=== PATIENT | male | born 1965 | race Caucasian/White ===

== ENCOUNTER 2017-02-28 11:20 | Inpatient (IN) ==
[2017-02-28] MEDS ORDERED: Nitroglycerin 0.4 MG TAB.SUBL SL PRN (11:42)
[2017-02-28 11:54] LABS: Basophils % 0.2 %; Eosinophils # 0.1 K/mcL (0.0-0.6); Eosinophils % 0.4 %; Hematocrit 40.2 % (37.5-50.1); Hemoglobin 13.6 g/dL (12.9-16.9); Immature Granulocytes % 0.4 % (0-4); Lymphocytes # 2.3 K/mcL (0.6-4.6); Lymphocytes % 13.3 %; Mean Corpuscular HGB Conc 33.8 g/dL (31.6-35.5); Mean Corpuscular Hemoglobin 28.5 pg (28.0-33.3); Mean Corpuscular Volume 84.1 fL (83.0-100.0); Monocytes # 1.7 K/mcL (0.0-1.3); Neutrophils # 12.9 K/mcL (1.6-8.9); Platelet Count 296 K/mcL (140-400); Red Blood Count 4.78 M/mcL (4.19-5.50); Red Cell Distribution Width 13.1 % (11.5-14.5); Segmented Neutrophils % 75.7 %
[2017-02-28 12:14] LABS: BUN/Creatinine Ratio 18 (6-26); Blood Urea Nitrogen 17 mg/dL (6-20); Calcium 9.1 mg/dL (8.6-10.3); Carbon Dioxide 21 mEq/L (23-29); Chloride 101 mEq/L (98-107); Glucose 112 mg/dL (70-105); Osmolality,Calculated 272 (280-300); Potassium 4.1 mEq/L (3.5-5.1); Sodium 130 mEq/L (136-145); eGFR For African Americans > 60 (> 60); eGFR For Non-African Americans > 60 (> 60)
[2017-02-28] MEDS ORDERED: *HR* Heparin 5,000 UNIT/ML VIAL IVP ONE (12:47)
[2017-02-28] MEDS ORDERED: *HR* Heparin 5,000 UNIT/ML VIAL IVP PRN (12:47)
[2017-02-28] MEDS ORDERED: Azithromycin 500 MG in D5% in Water 250 ML IVPB ONE (12:49)
--- NOTE | 2017-02-28 12:49 | Emergency Department Note ---
Disposition Clinical Impression: NSTEMI (non-ST elevated myocardial infarction) CAP (community acquired pneumonia) Qualifiers: Laterality: right Lung location: lower lobe of lung Qualified Code(s): J18.1 - Lobar pneumonia, unspecified organism Disposition: Admitted As Inpatient Condition: Serious Referrals: Salbador Madrid DO [Primary Care Provider] - Forms: ED Satisfaction Letter Time of Disposition: 13:57 Chest Pain HPI - General Chief Complaint: ED Chest Pain Stated Complaint: Chest Pain Time Seen by Provider: 02/28/17 11:30 Source: patient Mode of arrival: ambulatory Limitations: no limitations Vital Signs Reviewed: Yes Nursing Notes Reviewed: Yes - History of Present Illness HPI Narrative: 51-year-old male history of hypertension presents complaining of chest pain at rest. Patient has had some cough and congestion for the last 3 or 4 days and right-sided chest pain that he rates a 3 out of 10 at been persistent but this morning he woke up with left-sided acute 6 out of 10 chest pain, he took aspirin , he came in for evaluation. Patient has no history of previous cardiac workups history of hypertension and is a current smoker. He denies hemoptysis, denies reflux, denies nausea, vomiting, abdominal pain GI bleeding and melena Pt complaint: chest pain Onset (ago): hour(s) Duration: intermittent Onset: during rest Pain Location: left chest Severity: moderate Severity scale (1-10): 3 Quality: aching Pain Radiation: none Improves with: nothing Worsens with: exertion Associated symptoms: Reports: dyspnea. Denies: vomiting, diaphoresis, sense of impending doom, leg swelling Treatments prior to arrival chest pain: aspirin - Related Data Home Medications Medication Instructions Recorded Confirmed Albuterol Sulfate [Albuterol 2 puff IH Q6H PRN 02/28/17 02/28/17 Inhaler] Lisinopril [Zestril] 10 mg PO DAILY 02/28/17 02/28/17 Naproxen [Naproxen] 500 mg PO BID PRN 02/28/17 02/28/17 Allergies Allergy/AdvReac Type Severity Reaction Status Date / Time Penicillins [PCN] AdvReac See Verified 02/28/17 11:23 Comments All systems ED: reviewed and negative except as stated. Review of Systems: As Per HPI Constitutional: Denies: fever Eyes: Denies: eye pain ENT ED: Denies: ear pain Cardiovascular: Reports: as per HPI, chest pain, dyspnea on exertion. Denies: palpitations Respiratory: Reports: as per HPI, cough, dyspnea Gastrointestinal: Denies: abdominal pain, nausea, vomiting Genitourinary: Denies: urgency Musculoskeletal: Denies: back pain Chest Pain PMH - Past Medical History Medical history: Reports: arthritis, hypertension Psychiatric history: Reports: no psych history - Social History Smoking Status: Current every day smoker Alcohol use: Reports: none Drug use: Reports: none Physical Exam Constitutional: NAD, vital signs reviewed and wnl Eyes: PERRLA, sclera anicteric ENT & Mouth: MM dry Neck: normal inspection, neck is supple Resp: exp wheezes bilaterally CV: RRR, no m/g/r GI: normal inspection, soft, no guarding or rigidity Neuro: A&O3, CNII-XII grossly intact, GRIFFIN Skin: on limited exam, skin intact with no rashes or lesions - General General appearance: alert, in no apparent distress Course Course Narrative: 51-year-old male with history of chest pain today, a few days of continued chest pain as well associate with cough on the right side of this new chest pain is on the left, his heart score is 4, we will give him nitroglycerin glycerin trial, plan is for likely admission for chest pain given high heart score - Reevaluation(s) Reevaluation #1: Nitroglycerin glycerin was not effective, I did cardiac consult Dr. Cain and she recommended inpatient mission for pneumonia, possible N STEMI given elevated troponin, heparinization was started, patient has no ischemic EKG changes and an EKG was repeated at 1253 so showing no acute ischemic changes. As was Dr. Maldonado accepting Time: 13:56 Vital Signs Temperature 97.3 F L 02/28/17 11:23 Pulse Rate 108 02/28/17 11:23 Respiratory Rate 18 02/28/17 11:23 Blood Pressure 112/73 02/28/17 11:23 O2 Sat by Pulse Oximetry 96 02/28/17 11:23 Temperature 97.3 F L 02/28/17 11:23 Pulse Rate 90 02/28/17 13:26 Respiratory Rate 16 02/28/17 13:26 Blood Pressure 103/66 02/28/17 13:26 O2 Sat by Pulse Oximetry 95 02/28/17 13:26 Oxygen Delivery Oxygen Delivery Room Air Chest Pain - Differential Diagnosis Likely: atypical chest pain. Unlikely: chest pain - Medical Records Medical records reviewed: Yes I reviewed the patient's medical records. - Lab Data Lab results reviewed: Yes I reviewed the patient's lab results. Result diagrams: 02/28/17 11:46 02/28/17 11:46 Lab Results 02/28/17 02/28/17 02/28/17 Range/Units 11:46 11:46 11:46 WBC 17.0 H (4.3-11.1) K/mcL RBC 4.78 (4.19-5.50) M/mcL Hgb 13.6 (12.9-16.9) g/dL Hct 40.2 (37.5-50.1) % MCV 84.1 (83.0-100.0) fL MCH 28.5 (28.0-33.3) pg MCHC 33.8 (31.6-35.5) g/dL RDW 13.1 (11.5-14.5) % Plt Count 296 (140-400) K/mcL MPV 11.0 (9.4-12.4) fL Immature Gran % 0.4 (0-4) % Seg Neutrophils % 75.7 % Lymphocytes % 13.3 % Monocytes % 10.0 % Eosinophils % 0.4 % Basophils % 0.2 % Neutrophils # 12.9 H (1.6-8.9) K/mcL Lymphocytes # 2.3 (0.6-4.6) K/mcL Monocytes # 1.7 H (0.0-1.3) K/mcL Eosinophils # 0.1 (0.0-0.6) K/mcL Basophils # 0.0 (0.0-0.2) K/mcL PT (9.4-12.1) Seconds INR APTT (26.0-36.0) Seconds Sodium 130 L (136-145) mEq/L Potassium 4.1 (3.5-5.1) mEq/L Chloride 101 (98-107) mEq/L Carbon Dioxide 21 L (23-29) mEq/L BUN 17 (6-20) mg/dL Creatinine 0.93 (0.70-1.30) mg/dL Est GFR ( Amer) > 60 (> 60) Est GFR (Non-Af Amer) > 60 (> 60) BUN/Creatinine Ratio 18 (6-26) Glucose 112 H (70-105) mg/dL Calculated Osmolality 272 L (280-300) Calcium 9.1 (8.6-10.3) mg/dL Troponin I 0.05 H* (< 0.04) ng/mL 02/28/17 Range/Units 11:46 WBC (4.3-11.1) K/mcL RBC (4.19-5.50) M/mcL Hgb (12.9-16.9) g/dL Hct (37.5-50.1) % MCV (83.0-100.0) fL MCH (28.0-33.3) pg MCHC (31.6-35.5) g/dL RDW (11.5-14.5) % Plt Count (140-400) K/mcL MPV (9.4-12.4) fL Immature Gran % (0-4) % Seg Neutrophils % % Lymphocytes % % Monocytes % % Eosinophils % % Basophils % % Neutrophils # (1.6-8.9) K/mcL Lymphocytes # (0.6-4.6) K/mcL Monocytes # (0.0-1.3) K/mcL Eosinophils # (0.0-0.6) K/mcL Basophils # (0.0-0.2) K/mcL PT 14.3 H (9.4-12.1) Seconds INR 1.3 APTT 27.0 (26.0-36.0) Seconds Sodium (136-145) mEq/L Potassium (3.5-5.1) mEq/L Chloride (98-107) mEq/L Carbon Dioxide (23-29) mEq/L BUN (6-20) mg/dL Creatinine (0.70-1.30) mg/dL Est GFR ( Amer) (> 60) Est GFR (Non-Af Amer) (> 60) BUN/Creatinine Ratio (6-26) Glucose (70-105) mg/dL Calculated Osmolality (280-300) Calcium (8.6-10.3) mg/dL Troponin I (< 0.04) ng/mL - Radiology Data Radiology results reviewed: Yes I reviewed the patient's radiology results. Chest X-Ray 02/28/17 11:30 IMPRESSION: 1. Focal consolidation at the right lung base. 2. Mildly enlarged cardiac silhouette with minimal prominence of the pulmonary vasculature. D/ / Don Villegas MD / Don Villegas MD Interpreting Provider: Don Villegas MD - EKG Data EKG attestation: Yes I reviewed and interpreted this EKG. EKG shows normal: sinus rhythm (91 bpm WA 155 QRS 116 QTc [address] segment elevations or depressions incomplete right bundle branch block and inferior leads.) When compared to previous EKG there are: previous EKG unavailable Interpretation: no acute changes - Core Measures AMI Core Measures Followed: Yes Heart Score - Score History: Moderately Suspicious EKG: Non Specific repolarisation Disturbance Age: 45-65 Risk Factors: 1-2 risk factors Troponin: Less than normal limit HEART Score Total: 4 Attestation Statement - Attestation Attestation: I examined this patient and my medical decision-making was reviewed with the Resident Physician, Dr. Jones. I agree with the documented findings, disposition and treatment plan as described except to the extent set forth below. Patient is a 51-year-old white male with a history of hypertension and smoking who presents to the emergency Department today with complaints of intermittent left-sided nonradiating chest pain that he has been experiencing since he woke up this morning at 7 AM. Patient states for the last 3 or 4 days he is "not been feeling well", stating that he has had nasal congestion and an occasional nonproductive cough and has experienced some right lower lateral chest wall discomfort with coughing. Patient denies any lightheadedness or syncope, no diaphoresis, no shortness of breath associated with this pain this morning. Patient has no prior cardiac history states remotely he had a stress test performed which was normal and otherwise has never seen a beater out. I agree with patient's physical exam findings as documented. Patient had an EKG done on arrival which was normal sinus rhythm with no acute ST or T-wave changes appreciated. Patient took 2 adult aspirin at home prior to arrival to the emergency department. He was placed on senior medical writer and continuous pulse ox IV was established labs were drawn and sent and he was started on 0.9 normal saline and administered a nitroglycerin trial. The pain was significantly improved but did not totally resolve with nitroglycerin. His labs show an elevated white count with a left shift, as well as an elevated troponin of 0.05. Patient's renal function is within normal limits. Serial EKGs were obtained on the emergency department he has had no acute ST or T-wave changes. Chest x-ray shows a right lower lobe pneumonia. We will go ahead and start the patient on IV antibiotics for community-acquired pneumonia, he has had no respiratory distress or hypoxia since arriving to the ED. Patient's vital signs are stable and he has had a stable blood pressure. With patient's elevated troponin and new onset left sided chest pain this morning patient likely with non-STEMI. We did call cardiology in regards to the patient's ongoing chest pain as well as positive troponin with no EKG changes. Cardiology recommended admission, pain control, he will consult see the patient and follow serial troponins. Patient was started on heparin cardiac protocol. Case discussed with hospitalist who accepted patient for admission.
[2017-02-28] MEDS ORDERED: cefTRIAXone 1,000 MG in Water for inj. (sterile) 10 ML IVP ONE (12:56)
[2017-02-28] MEDS: Heparin 25,000 UNIT/500 ML D5W 25,000 UNIT/500 ML BAG IVC SCH (13:09)
[2017-02-28] MEDS ORDERED: Nitroglycerin 1 INCH/GM PACKET TP ONE (13:15)
[2017-02-28 13:21] LABS: INR 1.3; Prothrombin Time 14.3 Seconds (9.4-12.1)
[2017-02-28] MEDS ORDERED: Naloxone 0.4 MG/ML INJ IVP PRN (16:28)
[2017-02-28] MEDS ORDERED: Acetaminophen 325 MG TABLET PO PRN (16:28)
[2017-02-28] MEDS ORDERED: Ondansetron 4 MG/2 ML VIAL IVP PRN (16:28)
[2017-02-28] MEDS ORDERED: Benzonatate 100 MG CAPSULE PO PRN (16:38)
[2017-02-28] MEDS: Aspirin Enteric Coated 81 MG Tablet PO SCH (17:27)
[2017-02-28] MEDS: Azithromycin 500 MG in D5% in Water 250 ML IVPB SCH (17:28)
[2017-02-28] MEDS: *HR* Morphine 2 MG/ML SYRINGE IVP PRN (17:44)
--- NOTE | 2017-02-28 17:56 | Internal Med History&Physical ---
<Isaak Sharma - Last Filed: 02/28/17 18:22> Date of Encounter: 02/28/17 Time of Encounter: 16:00 Assessment and Plan (1) Chest pain Current visit: Yes Status: Acute Acute chest pain that began at 7:30 AM this morning as sharp and stabbing pain in the left sided chest and was intermittent. Patient denies previous occurrence and any previous cardiac history. Took aspirin prior to coming to ED and patient reports he was given nitroglycerin ED which did not help. Continue aspirin therapy. Lipitor 80 mg now. Echocardiogram ordered. Cardiology consult ordered in ED. continue patient's lisinopril. Continuous cardiac telemetry. Supplemental O2 and SPO2 monitoring. Nitroglycerin when necessary. Heparin drip initiated in the ED and will be continued due to patient's current elevated troponin. Initial troponin 0.05 with second troponin 0.06. Patient discussed with Dr. Maldonado who agrees w/plan of care. Patient is at high risk for cardiac event based on current symptoms and elevated troponin as well as respiratory distress and further morbidity due to concurrent pneumonia diagnosis. Inpatient. Qualifiers: Chest pain type: other chest pain Qualified Code(s): R07.89 - Other chest pain; R07.8 - Other chest pain (2) Sepsis Current visit: Yes Status: Acute Pt. currently meets sepsis criteria based on HR of 108 bpm, WBC of 17.0, and pneumonia of right lower lung. Lactic acid ordered stat. IV 0.9 NS 1L bolus to be followed by 125 mL/HR. Blood cultures x2. Sputum culture ordered. Legionella and strep pneumoniae antigens ordered. IVPB azithromycin 500 mg daily and ceftriaxone 1000 mg daily for infection coverage will adjust antibiotic coverage based on culture results. Continuous cardiac telemetry. Supplemental O2 w/titration and SpO2 monitoring. Monitor pt. and f/u labs. Qualifiers: Sepsis type: sepsis due to unspecified organism Qualified Code(s): A41.9 - Sepsis, unspecified organism (3) CAP (community acquired pneumonia) Current visit: Yes Status: Acute Acute community acquired pneumonia. WBC 17.0. 1-View CXR today shows focal consolidation at the right lung base and mildly enlarged cardiac silhouette with minimal prominence of pulmonary vasculature. IVPB azithromycin 500 mg daily and ceftriaxone 1000 mg daily for infection coverage. Blood cultures 2. Sputum culture ordered. Legionella and strep pneumoniae antigens ordered. Will adjust abx coverage based on culture results. Supplemental O2 with titration SPO2 monitoring. DuoNeb every 4 hours scheduled. Tessalon 200 mg 3 times a day for cough. Monitor pt. and f/u labs. Qualifiers: Laterality: right Lung location: lower lobe of lung Qualified Code(s): J18.1 - Lobar pneumonia, unspecified organism (4) Hyponatremia Current visit: Yes Status: Acute Acute hyponatremia w/sodium level of 130 on admission. Pt. receiving IV 0.9 NS @ 75 mL/HR. Monitor f/u labs. (5) Arthritis Current visit: Yes Status: Chronic Hx of chronic arthritis. Stair-step pain medications for pain mgmt. (6) HTN (hypertension) Current visit: Yes Status: Chronic Hx of chronic HTN. Monitor pt. and VS. Continue pts. lisinopril. Qualifiers: Hypertension type: essential hypertension Qualified Code(s): I10 - Essential (primary) hypertension (7) Tobacco abuse Current visit: Yes Status: Chronic Hx of chronic tobacco abuse. Pt. reports smoking 1 PPD. 14 mg nicotine patch ordered. (8) DVT prophylaxis Current visit: Yes Status: Acute Pt. placed on heparin drip d/t current troponin of 0.05. Monitor pt. for signs of bleeding. Internal Medicine - H&P: HPI Chief complaint: Chest pain Admitted From: Emergency Dept Plans for Post Hospital Care: Home History of present illness: Mr. Bowen is a 51 year old male with medical hx of arthritis, HTN, and current tobacco abuse presents from the ED with chief complaint of chest pain that he states began 7:30 AM and presented as sharp and stabbing pain in his left chest that was intermittent without radiation. Patient also reports he has had a severe cough since before with yellow sputum production. Patient states he took an aspirin this morning before coming to ED. Patient states he was given nitroglycerin in the ED which did not help his chest pain. Patient denies any cardiac history or previous workup. He reports chest pain, shortness of breath, and cough but denies nausea, vomiting, fever, chills, changes in vision, headache, abdominal pain, palpitations, diaphoresis, unusual bleeding, dizziness, lightheadedness, pre-syncope, or syncope. Past Med Surg Social Fam HX - Past Medical History Source: patient, old records reviewed, obtained from family Medical history: arthritis, hypertension Psychiatric history: no psych history - Past Surgical History Surgical History: other - Social History Smoking Status: Current every day smoker Packs per day: 1 PPD Smokeless Tobacco Status: No Alcohol use: none Drug use: none Current living situation: Home, With Family Activity Level: Independent ambulation Recent Out of Country Travel Within the Last 8 Weeks: No Exposure or Possible Exposure to Illness During Travel: No - Family History Mother Race: Family Member Ethnicity: Non- Living Status: Age at : 65 Cause of : Alzheimer's disease Hx Family Neurologic Disorders: Yes (Alzheimer's disease) Father Race: Family Member Ethnicity: Non- Living Status: Still Living Hx Family Medical Disorders: No Brother Race: Family Member Ethnicity: Non- Living Status: Still Living Hx Family Cardiac Disorders: Yes ([place], Cardiac ablation x2, HTN, HLD) Hx Family Endocrine Disorder: Yes (DM) Sister Race: Family Member Ethnicity: Non- Living Status: Still Living Hx Family Medical Disorders: No Internal Medicine - H&P: Meds Albuterol Sulfate [Albuterol Inhaler] 2 puff IH Q6H PRN 02/28/17 [History] Lisinopril [Zestril] 10 mg PO DAILY 02/28/17 [History] Naproxen [Naproxen] 500 mg PO BID PRN 02/28/17 [History] 3 Allergy/AdvReac Type Severity Reaction Status Date / Time Penicillins [PCN] AdvReac See Verified 02/28/17 11:23 Comments All Systems PM: A 10-system review of systems was performed and is negative for pertinent findings except as documented above in the HPI. - Constitutional Constitutional: no chills, no fever(s), no night sweats - EENT Eyes: no change in vision, no discharge, no pain, no photophobia Ears: no ear discharge, no ear pain, no tinnitus Nose, mouth and throat: no dysphagia, no nasal discharge, no neck pain, no sore throat - Breasts Breasts: as per HPI - Cardiovascular Cardiovascular ROS IM: as per HPI, chest pain (Left-sided under left pectoral w/ o radiation), dyspnea, dyspnea on exertion - Respiratory Respiratory: as per HPI, cough, dyspnea, dyspnea on exertion, wheezing, change in phlegm color, pain with cough - Gastrointestinal Gastrointestinal: no abdominal pain, no diarrhea, no hematemesis, no hematochezia, no melena, no nausea, no vomiting - Genitourinary Genitourinary ROS male: as per HPI - Musculoskeletal Musculoskeletal ROS IM: no numbness, no tingling - Integumentary Integumentary IM: no rash, no unusual bruising - Neurological Neurological ROS: no confusion, no convulsions, no focal weakness, no numbness, no tingling, no tremor(s) - Psychiatric Psychiatric: as per HPI - Endocrine Endocrine IM: as per HPI - Hematologic/Lymphatic Hematologic/Lymphatic: no easy bruising - Allergic/Immunologic Allergic/Immunologic: as per HPI - Constitutional Vitals: Temp Pulse Resp BP Pulse Ox 98.0 F 105 18 117/79 95 02/28/17 14:54 02/28/17 14:54 02/28/17 14:54 02/28/17 14:54 02/28/17 14:54 General appearance: Present: cooperative, mild distress (Respiratory d/t cough) , A&O X 3, pleasant, answers questions appropriately - Head Head exam: Present: atraumatic, normal inspection, normocephalic - Eye Eye exam: Present: PERRL, conjuntiva pink, sclera anicteric Pupils: Present: PERRL - ENT ENT exam: Present: normal exam, normal external ear exam - Neck Neck exam general surgery: Present: normal inspection, supple, trachea midline. Absent: lymphadenopathy - Respiratory Respiratory exam: Present: accessory muscle use, respiratory distress, wheezes, tachypnea - Cardiovascular Cardiovascular exam: Present: tachycardia - GI/Abdominal GI/Abdominal exam: Present: normal bowel sounds, soft, no peritoneal signs. Absent: distended, tenderness - Rectal Rectal exam: Present: deferred - Additional comments: exam deferred. - Extremities Exam Extremities exam: Present: warm, radial pulses palpable and symmetrical. Absent : calf tenderness, cyanotic, pedal edema - Back Exam Back exam: Present: normal inspection - Neurological Exam Neurological exam: Present: CN II-XII intact, oriented X3, no focal deficits. Absent: pronater drift, facial droop, speech deficit - Psychiatric Psychiatric exam: Present: normal affect, normal mood - Skin Skin exam: Present: dry, intact Internal Med - H&P Results - Labs CBC & Chem 7: 02/28/17 11:46 02/28/17 11:46 Labs: Cardiac Enzymes 02/28/17 Range/Units 17:00 Troponin I 0.06 H* (< 0.04) ng/mL - EKG Data EKG shows normal: sinus rhythm Rate: tachycardia - EKG Data Prior EKG available for review: no Interpretation IM: suggestive of ischemia EKG comments: 02/28/17 18:03 EKG dated 02/28/17 shows sinus tachycardia with occasional ventricular premature complexes, left atrial enlargement, indeterminate axis, possible lateral myocardial infarction of indeterminate age. - Diagnostic Studies Chest x-ray Additional comments: Impressions Chest X-Ray 02/28/17 11:30 IMPRESSION: 1. Focal consolidation at the right lung base. 2. Mildly enlarged cardiac silhouette with minimal prominence of the pulmonary vasculature. D/ / Don Villegas MD / Don Villegas MD Interpreting Provider: Don Villegas MD <Tae Maldonado P - Last Filed: 02/28/17 18:44> Date of Encounter: 02/28/17 Internal Medicine - H&P: HPI History of present illness: Mr. Bowen is a 51 year old male All Systems PM: A 10-system review of systems was performed and is negative for pertinent findings except as documented above in the HPI. - Constitutional Vitals: Temp Pulse Resp BP Pulse Ox 98.0 F 105 18 117/79 95 02/28/17 14:54 02/28/17 14:54 02/28/17 14:54 02/28/17 14:54 02/28/17 14:54 Internal Med - H&P Results - Labs CBC & Chem 7: 02/28/17 11:46 02/28/17 11:46 Labs: Cardiac Enzymes 02/28/17 Range/Units 17:00 Troponin I 0.06 H* (< 0.04) ng/mL - Attending Attestation I examined this patient and my medical decision-making was reviewed with the Resident Physician/COTTON [employer]ER. I agree with the documented findings, disposition and treatment plan as described except to the extent set forth below. 51/male. Multiple comorbid conditions including chronic smoking. Admitted with elevated troponin/community-acquired pneumonia. Cardiology on the board. We will cycle troponin. Echocardiogram. We will follow the recommendations from cardiology. For pneumonia: IV antibiotics. Close monitoring and if patient clinically deteriorates then he should be transferred to ICU for further evaluation
[2017-02-28] MEDS ORDERED: 0.9 % Sodium Chloride 1,000 ML IVC ONE (18:14)
[2017-02-28] MEDS: Nicotine 14 MG PATCH.TD24 TD SCH (18:56)
[2017-02-28] MEDS: Ipratropium/Albuterol Neb 3 ML IH SCH ×2 (19:37→23:56)
[2017-02-28] MEDS: 0.9 % Sodium Chloride 1,000 ML IVC SCH (21:12)
[2017-02-28] MEDS: *HR* HYDROcodone/Acet 5/325 mg TABLET PO PRN (21:12)
[2017-02-28] MEDS: *HR* Heparin 5,000 UNIT/ML VIAL IVP PRN (21:16)
[2017-03-01] MEDS: *HR* Morphine 2 MG/ML SYRINGE IVP PRN (00:05)
[2017-03-01 01:05] LABS: Basophils % 0.3 %; Eosinophils # 0.1 K/mcL (0.0-0.6); Eosinophils % 0.9 %; Hematocrit 35.6 % (37.5-50.1); Immature Granulocytes % 0.6 % (0-4); Mean Corpuscular HGB Conc 33.1 g/dL (31.6-35.5); Mean Corpuscular Hemoglobin 28.2 pg (28.0-33.3); Mean Platelet Volume 11.4 fL (9.4-12.4); Monocytes # 1.3 K/mcL (0.0-1.3); Monocytes % 11.3 %; Neutrophils # 7.1 K/mcL (1.6-8.9); Platelet Count 240 K/mcL (140-400); Red Blood Count 4.19 M/mcL (4.19-5.50); Red Cell Distribution Width 13.2 % (11.5-14.5); Segmented Neutrophils % 60.9 %
[2017-03-01 01:15] LABS: Hemoglobin 11.8 g/dL (12.9-16.9)
[2017-03-01 01:25] LABS: Alanine Aminotransferase 26 Units/L (7-52); Albumin 2.9 g/dL (3.5-5.7); Albumin/Globulin Ratio 1.1 (1.1-2.2); Alkaline Phosphatase 91 Units/L (34-104); Aspartate Amino Transferase 32 Units/L (13-39); BUN/Creatinine Ratio 17 (6-26); Bilirubin,Total 0.9 mg/dL (0.3-1.0); Blood Urea Nitrogen 17 mg/dL (6-20); Calcium 8.3 mg/dL (8.6-10.3); Carbon Dioxide 22 mEq/L (23-29); Chloride 101 mEq/L (98-107); Chol/HDL Ratio 6.3 (0-4.9); Cholesterol 107 mg/dL (< 200); Globulin 2.7 g/dL (2.4-3.5); Glucose 114 mg/dL (70-105); HDL Cholesterol 17 mg/dL (40-59); LDL Cholesterol,Calculated 68 mg/dL (0-99); Magnesium 1.6 mg/dL (1.6-2.6); Osmolality,Calculated 272 (280-300); Potassium 4.1 mEq/L (3.5-5.1); Sodium 130 mEq/L (136-145); Total Protein 5.6 g/dL (6.4-8.9); Triglycerides 110 mg/dL (< 150); eGFR For African Americans > 60 (> 60); eGFR For Non-African Americans > 60 (> 60)
[2017-03-01] MEDS ORDERED: Pantoprazole 40 MG VIAL IVP ONE (02:17)
[2017-03-01 03:42] LABS: INR 1.4; Prothrombin Time 15.5 Seconds (9.4-12.1)
[2017-03-01 03:45] LABS: Activated Partial Thrombo Time 36.2 Seconds (26.0-36.0)
[2017-03-01] MEDS: Ipratropium/Albuterol Neb 3 ML IH SCH ×6 (04:09→23:35)
[2017-03-01] MEDS: *HR* HYDROcodone/Acet 5/325 mg TABLET PO PRN (04:14)
[2017-03-01] MEDS: *HR* Heparin 5,000 UNIT/ML VIAL IVP PRN (04:14)
[2017-03-01] MEDS: 0.9 % Sodium Chloride 1,000 ML IVC SCH ×3 (05:38→22:00)
[2017-03-01] MEDS: cefTRIAXone 1,000 MG in Water for inj. (sterile) 10 ML IVPB SCH (08:38)
[2017-03-01] MEDS: Aspirin Enteric Coated 81 MG Tablet PO SCH (08:40)
[2017-03-01] MEDS: Heparin 25,000 UNIT/500 ML D5W 25,000 UNIT/500 ML BAG IVC SCH (08:53)
--- NOTE | 2017-03-01 10:01 | Cardiology Consult Note ---
<Andrade Burgess - Last Filed: 03/01/17 14:34> Date of Encounter: 03/01/17 Time of Encounter: 09:15 Assessment and Plan (1) Elevated troponin I level Current Visit: Yes Status: Acute Laboratory examination demonstrated an elevated troponin level of 0.05 on initial presentation. Troponins were trended; 0.05, 0.06, 0.06. Plan: -Currently on heparin drip. -Cardiac catheterization today for ischemic evaluation. (2) Chest pain Current Visit: Yes Status: Acute Patient describes sharp, intermittent chest pain located in the lower left portion of his chest. Unrelated to exertion; resolves in a few seconds. Plan: -Currently on heparin drip; may need cardiac catheterization. Qualifiers: Chest pain type: other chest pain Qualified Code(s): R07.89 - Other chest pain; R07.8 - Other chest pain (3) Heart failure Current Visit: Yes Status: Acute Echocardiogram was performed on 03/01/17; demonstrated the following: -Ejection fraction of 25%. -Moderately dilated left ventricle. -Severe global left ventricular systolic dysfunction. -Severe left ventricular diastolic dysfunction. -Atypical septal motion consistent with BBB. -Mildly dilated and mildly hypokinetic right ventricle. -Severely dilated left atrium. -Apically displaced mitral valve leaflets with severe mitral regurgitation. -Mild tricuspid regurgitation. -Moderate to severe pulmonary HTN. -Estimated RVSP is 53-58 mmHg, including an estimated right atrial pressure of 15-21 mmHg. Qualifiers: Qualified Code(s): I50.9 - Heart failure, unspecified Discussion w patient/family: The assessment and plan as outlined above was discussed with the patient and/or family members who expressed understanding and agreement. All questions were answered. Thank you for involving us in the care of your patient. Please call with any questions. History of Present Illness Consult date: 03/01/17 Chief complaint: Chest pain History of present illness: Mr. Bowen is a 51 year old male with a PMH of arthritis, HTN, and current tobacco abuse who presented to the ED on 02/28/17 with a chief complaint of chest pain. He states that he has been having this chest pain for the last 3 or 4 days on and off. He describes it as left-sided chest pain ranging from 3- 6 out of 10 on the pain scale. He also admits to having some cough and congestion for the last few days. He took an aspirin at home and then came in for evaluation. He denies having any previous history of cardiac workups. Patient was given nitroglycerin in the ED. This helped his pain somewhat, but did not fully resolve. EKG was obtained; no ischemic changes were found. Patient was tachycardic on presentation with a heart rate of 108. Laboratory analysis demonstrated an elevated white count with left shift as well as an elevated troponin level at 0.05. Patient's renal function was within normal limits. CXR was obtained and showed a RLL PNA. Azithromycin and ceftriaxone were started for the treatment of pneumonia. An ECHO was ordered. Heparin drip was initiated due to concern of NSTEMI. He was placed on continuous cardiac monitoring. Troponins were trended, and second troponin was 0.06. Patient was seen and examined at bedside this morning. He reports that he does still feel some chest pain, particularly in the lower portion of his left chest. He describes this pain as brief, intermittent bouts of sharp stabbing chest pain. They are unrelated to exertion. On physical examination, patient had a episode of chest pain lasting approximately 3 seconds. He denies ever having this before. He currently has no other complaints at this time. Past Med Surg Social Fam HX - Past Medical History Medical history: arthritis, hypertension Psychiatric history: no psych history - Past Surgical History Surgical History: other - Social History Smoking Status: Current every day smoker Packs per day: 1 PPD Smokeless Tobacco Status: No Alcohol use: none Drug use: none - Family History Mother Race: Family Member Ethnicity: Non- Living Status: Age at : 65 Cause of : Alzheimer's disease Hx Family Cardiac Disorders: Yes Hx Family Neurologic Disorders: Yes (Alzheimer's disease) Father Race: Family Member Ethnicity: Non- Living Status: Still Living Hx Family Medical Disorders: No Brother Race: Family Member Ethnicity: Non- Living Status: Still Living Hx Family Cardiac Disorders: Yes (TN, Cardiac ablation x2, HTN, HLD) Hx Family Endocrine Disorder: Yes (DM) Sister Race: Family Member Ethnicity: Non- Living Status: Still Living Hx Family Medical Disorders: No Medications and Allergies Albuterol Sulfate [Albuterol Inhaler] 2 puff IH Q6H PRN 02/28/17 [History] Lisinopril [Zestril] 10 mg PO DAILY 02/28/17 [History] Naproxen [Naproxen] 500 mg PO BID PRN 02/28/17 [History] 3 Allergy/AdvReac Type Severity Reaction Status Date / Time Penicillins [PCN] AdvReac See Verified 02/28/17 11:23 Comments All Systems Review: A 10-system review of systems was performed and is negative for pertinent findings except as documented above in the HPI. - Constitutional Constitutional: no fever(s) - Cardiovascular Cardiovascular: chest pain at rest, no chest pain with exertion, no diaphoresis , no dyspnea at rest, no dyspnea on exertion, no irregular heart rhythm, no radiating jaw, neck or arm pain - Neurological Neurological: no syncope Physical Examination Vital Signs, Last 4 Hours Temp Pulse Resp BP Pulse Ox 03/01/17 07:00 98.4 F 75 15 98/66 94 General: Conversant, No Apparent Distress HEENT: Atraumatic, Normocephaly, Mucus Membranes Moist Neck: No JVD, Normal carotid pulses Cardiac: Reg Rate and Rhythm, Normal S1 and S2, No Murmur Lungs: Normal Breath Sounds, No Wheeze, Rales, Rhonchi Neuro: Alert and responsive, No focal deficits noted Skin: No rashes noted on visualized skin Musculoskeletal: No Chest Wall Tenderness Extremities: No Clubbing, No Cyanosis, No Edema, Normal Pulses Results 03/01/17 00:30 03/01/17 00:30 Lab Results 02/28/17 02/28/17 03/01/17 17:00 20:14 00:30 WBC Hgb Hct Plt Count INR APTT 33.1 Sodium Potassium Chloride Carbon Dioxide BUN Creatinine Glucose Calcium Magnesium Total Bilirubin AST ALT Alkaline Phosphatase Troponin I 0.06 H* 0.06 H* 03/01/17 03/01/17 03/01/17 00:30 00:30 03:18 WBC 11.6 H Hgb 11.8 L D Hct 35.6 L Plt Count 240 INR 1.4 APTT 36.2 H Sodium 130 L Potassium 4.1 Chloride 101 Carbon Dioxide 22 L BUN 17 Creatinine 1.00 Glucose 114 H Calcium 8.3 L Magnesium 1.6 Total Bilirubin 0.9 AST 32 ALT 26 Alkaline Phosphatase 91 Troponin I 03/01/17 09:10 WBC Hgb Hct Plt Count INR APTT 56.7 H D Sodium Potassium Chloride Carbon Dioxide BUN Creatinine Glucose Calcium Magnesium Total Bilirubin AST ALT Alkaline Phosphatase Troponin I Consult Discharge Plan - Plan Referrals: Salbador Madrid DO [Primary Care Provider] - <Gabbie Cain - Last Filed: 03/01/17 17:00> Date of Encounter: 03/01/17 - Attending Attestation I examined this patient and my medical decision-making was reviewed with the Resident Physician. I agree with the documented findings, disposition and treatment plan. Mr. Bowen presents with chest pain, elevated troponins and newly discovered severe LV systolic heart failure. Risk factors for cardiovascular disease include active smoking, hypertension and premature CAD in his twin brother. We discussed proceeding with left heart catheterization for an evaluation of coronary disease as an explanation for severe LV systolic dysfunction. The risks, benefits and alternatives of the procedure were discussed with the patient in detail. His was present at the bedside. The patient expressed understanding and agreed to proceed. Renal function is normal. CBC unremarkable. Assessment and Plan Discussion w patient/family: The assessment and plan as outlined above was discussed with the patient and/or family members who expressed understanding and agreement. All questions were answered. Thank you for involving us in the care of your patient. Please call with any questions. History of Present Illness History of present illness: Mr. Bowen is a 51 year old male All Systems Review: A 10-system review of systems was performed and is negative for pertinent findings except as documented above in the HPI. Results 03/01/17 00:30 03/01/17 00:30 Lab Results 02/28/17 02/28/17 03/01/17 17:00 20:14 00:30 WBC Hgb Hct Plt Count INR APTT 33.1 Sodium Potassium Chloride Carbon Dioxide BUN Creatinine Glucose Calcium Magnesium Total Bilirubin AST ALT Alkaline Phosphatase Troponin I 0.06 H* 0.06 H* 03/01/17 03/01/17 03/01/17 00:30 00:30 03:18 WBC 11.6 H Hgb 11.8 L D Hct 35.6 L Plt Count 240 INR 1.4 APTT 36.2 H Sodium 130 L Potassium 4.1 Chloride 101 Carbon Dioxide 22 L BUN 17 Creatinine 1.00 Glucose 114 H Calcium 8.3 L Magnesium 1.6 Total Bilirubin 0.9 AST 32 ALT 26 Alkaline Phosphatase 91 Troponin I 03/01/17 09:10 WBC Hgb Hct Plt Count INR APTT 56.7 H D Sodium Potassium Chloride Carbon Dioxide BUN Creatinine Glucose Calcium Magnesium Total Bilirubin AST ALT Alkaline Phosphatase Troponin I
[2017-03-01 11:24] LABS: Adenovirus Not Detected (Not Detect); Bordetella Pertussis Not Detected (Not Detect); Chlamydophila pneumoniae Not Detected (Not Detect); Coronavirus 229E Not Detected (Not Detect); Coronavirus HKU1 Not Detected (Not Detect); Coronavirus NL63 Not Detected (Not Detect); Coronavirus OC43 Not Detected (Not Detect); Human Metapneumovirus Not Detected (Not Detect); Human Rhinovirus/Enterovirus Not Detected (Not Detect); Influenza A Subtype 2009 H1 Not Detected (Not Detect); Influenza A Untypeable Not Detected (Not Detect); Influenza B Not Detected (Not Detect); Mycoplasma pneumoniae Not Detected (Not Detect); Parainfluenza Virus 1 Not Detected (Not Detect); Parainfluenza Virus 2 Not Detected (Not Detect); Parainfluenza Virus 3 Not Detected (Not Detect); Parainfluenza Virus 4 Not Detected (Not Detect); Respiratory Syncytial Virus Not Detected (Not Detect)
[2017-03-01] MEDS: Nicotine 14 MG PATCH.TD24 TD SCH (12:27)
[2017-03-01] MEDS ORDERED: Heparin 1,000 UNITS/500 mL 500 ML ONE (14:35)
[2017-03-01] MEDS ORDERED: 0.9 % Sodium Chloride 1,000 ML ONE ×2 (14:35→15:16)
[2017-03-01] MEDS ORDERED: *HR* Heparin 10,000 UNIT/10 ML VIAL ONE (14:35)
[2017-03-01] MEDS ORDERED: Nitroglycerin 1,000 MCG/10 ML VIAL IV ONE (14:41)
[2017-03-01] MEDS ORDERED: Verapamil 5 MG/2 ML VIAL ONE (14:49)
[2017-03-01] MEDS ORDERED: *HR* FentaNYL (PF) 100 MCG/2 ML VIAL ONE (15:13)
[2017-03-01] MEDS ORDERED: *HR* Midazolam HCl 5 MG/5 ML VIAL IVP ONE (15:14)
--- NOTE | 2017-03-01 15:31 | Pre-Sedation Evaluation ---
Pre-sedation evaluation - Pre-sedation checklist Date of procedure: 03/01/17 Procedure: Left Heart Cath Recent Vitals: Last Vital Signs Temp 97.6 F 03/01/17 10:58 Pulse 90 03/01/17 10:58 Resp 18 03/01/17 11:12 BP 114/81 03/01/17 10:58 Pulse Ox 98 03/01/17 11:12 H&P (including ROS) documented in medical record: Yes Previous reaction to sedatives/anesthetics: No Dietary Status: NPO after Midnight Dentition: No loose teeth or bridges ASA Classification *see protocol: CLASS II-Mild systemic disease Plan of Care: Pt appropriate candidate for procedure/moderate/conscious sedation , Risks/benefits of procedure/sedation discussed w/ patient/family
[2017-03-01] MEDS ORDERED: Tirofiban 12.5 MG/250ML 12.5 MG/250 ML BAG ONE (16:01)
--- NOTE | 2017-03-01 16:06 | Internal Med Progress Note ---
Date of Encounter: 03/01/17 Time of Encounter: 16:03 - Assessment and plan (1) Chest pain Current Visit: Yes Status: Acute Assessment and plan: Presented with chest pain and shortness of breath. Received ASA, nitroglycerin with no relief in chest pain. Troponin peaked at 0.06. Cardiology consulted in ED; heparin gtt started in ED. Cont to have intermittent chest pain. No known CAD. [facility] planned 03/01. Cont ASA, statin. Qualifiers: Chest pain type: other chest pain Qualified Code(s): R07.89 - Other chest pain; R07.8 - Other chest pain (2) Acute systolic (congestive) heart failure Current Visit: Yes Status: Acute Assessment and plan: new diagnosis. 03/01/17 TTE with EF 25%, severe left ventricle systolic and diastolic dysfunction, and moderate to severe pulmonary hypertension. CXR with mild pulmonary vasculature. Clinically does not appear fluid overloaded. Not on Lasix at home. Continue home ERICA. Defer further medical management to cardiology. (3) CAP (community acquired pneumonia) Current Visit: Yes Status: Acute Assessment and plan: presented with SOB and chest pain. CXR with focal consolidation to right lower lung concerning for pneumonia. WBC 17K also recently received outpatient steroids. Lactic acid normal. Urinary antigens, respiratory PCR, sputum culture negative. Continue IV azithromycin, ceftriaxone. De-escalate ATB as clinically improves. Qualifiers: Laterality: right Lung location: lower lobe of lung Qualified Code(s): J18.1 - Lobar pneumonia, unspecified organism (4) Knee pain, acute Current Visit: Yes Status: Acute Assessment and plan: With acute bilateral knee pain; right greater than left. Patient reports PCP recently attempted to aspirate right knee with no fluid obtained. Bilateral knees with mild; right greater than left. Bilateral knee x-rays, uric acid pending. Qualifiers: Laterality: bilateral Qualified Code(s): M25.561 - Pain in right knee; M25.562 - Pain in left knee; M25.562 - Pain in left knee (5) HTN (hypertension) Current Visit: Yes Status: Chronic Assessment and plan: per hx. BP soft/borderline. Add hold parameters to home ERICA. Monitor BP and titrate PRN Qualifiers: Hypertension type: essential hypertension Qualified Code(s): I10 - Essential (primary) hypertension (6) Hyponatremia Current Visit: Yes Status: Acute Assessment and plan: Na 130. Neurologically intact. Holding on IV fluids with low EF. Urine studies pending. Monitor repeat CMP. (7) DVT prophylaxis Current Visit: Yes Status: Acute Assessment and plan: hep gtt - Time Spent With Patient less than 15 minutes - Subjective Interval history: Seen and examined at bedside. Patient is new to me, information obtained from chart review patient report. Says he overall feels better, with intermittent chest pain or shortness of breath but overall improved. His main complaint is bilateral knee pain right worse than left. Recently underwent aspiration of right knee per PCP with no fluid aspirated. Awaiting left heart catheterization. and son at bedside updated. - Constitutional Vitals: Temp Pulse Resp BP Pulse Ox 97.6 F 90 18 114/81 98 03/01/17 10:58 03/01/17 10:58 03/01/17 11:12 03/01/17 10:58 03/01/17 11:12 General appearance: Present: cooperative, A&O X 3, pleasant, no acute distress, answers questions appropriately - Head Head exam: Present: atraumatic, normocephalic - Eye Eye exam: Present: PERRL, conjuntiva pink, sclera anicteric Pupils: Present: PERRL - Neck Neck exam general surgery: Present: supple, trachea midline. Absent: lymphadenopathy - Respiratory Respiratory exam: Present: CTAB. Absent: accessory muscle use, rales, rhonchi, wheezes - Cardiovascular Cardiovascular exam: Present: RRR, +S1, +S2. Absent: diastolic murmur, gallop, rubs, systolic murmur - GI/Abdominal GI/Abdominal exam: Present: normal bowel sounds, soft, no peritoneal signs. Absent: distended, tenderness - Extremities Exam Extremities exam: Present: joint swelling (Bilateral knee swelling; right greater than left.), warm, radial pulses palpable and symmetrical. Absent: calf tenderness, cyanotic, pedal edema - Neurological Exam Neurological exam: Present: CN II-XII intact, oriented X3, no focal deficits. Absent: pronater drift, facial droop, speech deficit - Skin Skin exam: Present: dry, intact Internal Medicine: Result - Labs CBC & Chem 7: 03/01/17 00:30 03/01/17 00:30 Labs: Short CBC 03/01/17 Range/Units 00:30 WBC 11.6 H (4.3-11.1) K/mcL Hgb 11.8 L D (12.9-16.9) g/dL Hct 35.6 L (37.5-50.1) % Plt Count 240 (140-400) K/mcL Neutrophils # 7.1 (1.6-8.9) K/mcL BMP 03/01/17 00:30 Sodium 130 L Potassium 4.1 Chloride 101 Carbon Dioxide 22 L BUN 17 Creatinine 1.00 Glucose 114 H Calcium 8.3 L Cardiac Enzymes 02/28/17 03/01/17 Range/Units 17:00 00:30 Troponin I 0.06 H* 0.06 H* (< 0.04) ng/mL Liver Function 03/01/17 Range/Units 00:30 Total Bilirubin 0.9 (0.3-1.0) mg/dL AST 32 (13-39) Units/L ALT 26 (7-52) Units/L Alkaline Phosphatase 91 (34-104) Units/L Albumin 2.9 L (3.5-5.7) g/dL - ABG Interpretation ABG results: PT/INR, D-dimer PT 15.5 Seconds (9.4-12.1) H 03/01/17 03:18 - Impressions Impressions Echocardiogram 03/01/17 16:38 Impressions: LVEF 25%. Moderately dilated left ventricle. Severe global left ventricular systolic dysfunction. Severe left ventricular diastolic dysfunction. Atypical septal motion consistent with bundle branch block. Mildly dilated and mildly hypokinetic right ventricle. Severely dilated left atrium. Apically displaced mitral valve leaflets with severe mitral regurgitation. Mild tricuspid regurgitation. Moderate-severe pulmonary hypertension. Estimated RVSP is 53-58 mmHg, including an estimated RA pressure of 15-20 mmHg. Findings: Study Quality * Technically adequate exam. ECG Findings * Sinus rhythm with BBB. Left Ventricle * LVEF 25%. * Moderately dilated left ventricle. * Severe global left ventricular systolic dysfunction. * Severe left ventricular diastolic dysfunction. * Atypical septal motion consistent with bundle branch block. Right Ventricle * Mildly dilated and mildly hypokinetic right ventricle. Left Atrium * Severely dilated left atrium. Right Atrium * Moderately dilated right atrium. Interatrial Septum * No evidence of a PFO by color Doppler. Aortic Valve * Trileaflet aortic valve with normal function. * No aortic regurgitation. * No aortic stenosis. Mitral Valve * Normal mitral valve structure. Leaflets are apically displaced. * Severe mitral regurgitation. * No mitral stenosis. Tricuspid Valve * Normal tricuspid valve structure. * Mild tricuspid regurgitation. * Moderate-severe pulmonary hypertension. * Estimated RVSP is 53-58 mmHg. * Estimated RA pressure is 15-20 mmHg. Pulmonic Valve * No pulmonic regurgitation. Aorta * Normally sized aortic root. Pericardium * The pericardium appears normal. IVC * The IVC is dilated. * < 50% respiratory change. Pulmonary Artery * Normal visualized portions of the main pulmonary artery. Consult Discharge Plan - Plan Referrals: Salbador Madrid, [Primary Care Provider] -
[2017-03-01] MEDS ORDERED: *HR* Ticagrelor 90 MG TABLET ONE (16:32)
[2017-03-01] MEDS ORDERED: Ondansetron 8 MG in 0.9 % Sodium Chloride 50 ML IVPB ONE (16:37)
[2017-03-01] MEDS ORDERED: Tirofiban 12.5 MG/250ML 12.5 MG/250 ML BAG IVC SCH (16:45)
--- NOTE | 2017-03-01 16:49 | Invasive Diagnostic Lab Proc ---
Name: Alexander Bowen Date of Study: 03/01/2017 Date: 1965 Ht: 72.0in Medical Record#: [id number] Age: 51 Wt: 183.42lb Gender: Male BSA: 2.05 Order #: [id number] BMI: 24.84 Physicians Procedure Physician: Ricky Lau MD, [facility] Referring MD: Referring MD: Staff Name Position Time In Karyn Del Rio RT (R) Monitor 03:27 PM YasminLarissa espinosa RT (R) Scrub 03:27 PM Iveth Ruiz RN Parking Lot Supervisor 03:27 PM Indications Indication Cardiomyopathy Procedures Performed Procedure L HRT ARTERY/VENTRICLE ANGIO PRQ CARD PRECIOUS STENT W/ANGIO 1 VSL PRQ CARD STENT W/ANGIO ADDL Pre-Procedure Checklist Informed consent is complete signed and on chart. H&P is on chart. ID band is on and ID verified with patient. Patient NPO for procedure The procedure was described for the patient and questions were answered. Blood Pressure: 114/81 ECG is on chart. Plan of Care Patient will tolerate the procedure without complications. Adequate level of comfort will be maintained. Hemodynamics will remain stable Patient will recover from procedure without complications. Respiratory function will be maintained. Cardiac rhythm will remain stable. Patient temperature will be maintained. Patient and/or family have verbalized understanding of the procedure. Patient Education Chief Complaint/Reason for Test: Cardiac Cath Developmental Category: Adult (18-64 years) Developmentally Appropriate for Age: Yes Learning Barriers: None Education Needs: Procedure Education Method: Verbal Information Taught: Cardiac Cath Educational Evaluation: Able to repeat information Intravenous Access Time IV Size Location DC'd Fluid/Drip Rate Units RN 03:26 PM 18g 1 1/" Patent On Arrival Rt Antecubital 0.9NaCl 25 ml/hr Iveth Ruiz RN Allergies Penicillin Vital Signs Time BP (mmHg) HR (bpm) O2 Sat. RR (bpm) LOC 03:28 PM / % 5 = Fully awake and oriented or at pre-proc level 03:28 PM / % 4 = Oriented but drowsy 03:43 PM / % 4 = Oriented but drowsy 03:59 PM / % 4 = Oriented but drowsy 03:20 PM 153 / 97 120 98 % 03:25 PM 141 / 84 120 86 % 17 03:30 PM 133 / 86 109 97 % 03:35 PM 127 / 86 108 96 % 16 03:40 PM 121 / 80 107 96 % 03:45 PM 115 / 74 97 94 % 03:50 PM 112 / 73 100 94 % 23 03:55 PM 108 / 76 99 94 % 18 04:00 PM 119 / 77 100 94 % 04:05 PM 116 / 81 102 94 % 04:10 PM 118 / 82 103 90 % 21 04:15 PM 126 / 84 98 89 % 33 04:20 PM 118 / 77 98 96 % 21 04:25 PM 110 / 63 95 96 % 20 04:30 PM 111 / 69 95 94 % 23 04:35 PM 107 / 76 94 % 19 Procedural Medications Time Medication Dose Units Method Given By 03:27 PM Oxygen 2 L/min nasal cannula Iveth Ruiz RN 03:22 PM Versed 2 mg Intravenous Iveth Ruiz RN 03:22 PM Fentanyl 50 mcg Intravenous Iveth Ruiz RN 03:41 PM Lidocaine 2% 0.5 ml Subcutaneous Ricky Lau MD, FACC 03:41 PM Heparin 4000 units Nitroglycerin 200 mcg Verapamil 2.5 mg Intraarterial Ricky Lau MD, FACC 04:00 PM Heparin 3000 units Intravenous Iveth Ruiz RN 04:04 PM Aggrastat Bolus: 37.5 ml Intravenous Iveth Ruiz RN 04:05 PM Aggrastat 12.5mg/250ml 13.5 ml Intravenous Iveth Ruiz RN 04:14 PM Nitroglycerin 200 mcg Intracoronary Ricky Lau MD 04:14 PM Versed 1 mg Intravenous Iveth Ruiz RN 04:15 PM Fentanyl 25 mcg Intravenous Iveth Ruiz RN 04:21 PM Nitroglycerin 200 mcg Intracoronary Ricky Lau MD 04:35 PM Brilinta 180 mg Orally Iveth Ruiz RN ASA Classification: CLASS II- Mild systemic disease (i.e. well-controlled diabetes, hypertension, asthma, cigarette smoking) Miguel Score Preprocedure Postprocedure Activity 2- Moves 4 extremities sustained head lift Activity 2- Moves 4 extremities sustained head lift Circulation 2- SBP +/= 20 points of pre-anesthetic level Circulation 2- SBP +/= 20 points of pre-anesthetic level Consciousness 2- Awake and alert oriented x 3 Consciousness 2- Awake and alert oriented x 3 O2 Saturation 2- Able to maintain O2 satruation of 92% on room air O2 Saturation 2- Able to maintain O2 satruation of 92% on room air Respiratory 2- Able to deep breathe and cough well Respiratory 2- Able to deep breathe and cough well Total Score 10 Total Score 10 Contrast Agent: Isovue Diagnostic Contrast: 180 ml Total Contrast: 180 ml Fluoro Dose: 1044 mGy Activated Clotting Time Time Seconds to Clot 04:00 PM 166 Procedure Log Time Note Enter By 03:11 PM CathStat 03:11 PM Case Start 03:19 PM Vitals capture started with the following parameters, Patient=Adult, Interval=5 min, Initial Swivuseb=934 mmHg, Deflation Rate=5 mmHg, Cuff placed on Right Leg 03:20 PM Pt arrived to microbiology laboratory manager 2 at 15:20 : PM EV=426 bpm, SYON=235/97 mmhg, SpO2=98.0 % 03:20 PM Physician arrived 15:20 tw 03: PM Procedure start 15:20 : PM Time: 15: Versed 2 mg Intravenous Given by Iveth Ruiz RN PM Time: 15:22 Fentanyl 50 mcg Intravenous Given by Iveth Ruiz RN ilson : PM VC=945 bpm, SHHO=151/84 mmhg, SpO2=86.0 %, Resp=17 B/min 03: PM Karyn Del Rio RT (R) Position: Monitor Time in: 15:: PM Larissa Hoffman RT (R) Position: Scrub Time in: 15:27 03: PM Iveth Ruiz RN Position: Parking Lot Supervisor Time in: 15:: PM Patient charges- Angio tray pack, Navilyst 3mm J, Pulse Oximetry and ACIST tubing and transducer twilson : PM Case Delayed no PM Meet and greet completed : PM Sign in performed according to hospital policy. PM Time: 15: Oxygen on at 2 L/min per nasal cannula by Iveth Ruiz RN PM Time: 15:28 Patient comfortable and pain free: Yes PM Time: 15:28LOC: 5 = Fully awake and oriented or at pre-proc level tw: PM Hair removed from procedure site in procedure lab using clippers. Bilateral groin prepped with Chloraprep by Karyn Del Rio RT (R), safety strap applied then patient was draped. Skin intact. twilson 03:29 PM Hair removed from procedure site in procedure lab using clippers. Right wrist prepped with Chloraprep by Karyn Del Rio RT (R), safety strap applied then patient was draped. Skin intact. twilson 03:29 PM Pressure channel 1 zeroed. 03:30 PM NR=754 bpm, PZTA=573/86 mmhg, SpO2=97.0 % 03:34 PM Recorded ECG: XY=373 Condition=Condition 1 03:35 PM SS=431 bpm, RDWH=585/86 mmhg, SpO2=96.0 %, Resp=16 B/min 03:38 PM ASA Class CLASS II- Mild systemic disease (i.e. well-controlled diabetes, hypertension, asthma, cigarette smoking) twilson 03:39 PM Time out performed according to hospital policy twilson 03:40 PM IK=434 bpm, BRTZ=867/80 mmhg, SpO2=96.0 % 03:41 PM Time: 15:41 0.5 ml Lidocaine 2% to right radial Subcutaneous Given by Ricky Lau MD, FACC twilson 03:41 PM Access obtained by percutaneous puncture. 6Fr 10cm Terumo Glidesheath sheath placed in right Radial artery. [id number] twilson 03:41 PM Time: 15:41 Patient given 4,000 units Heparin, 200 mcg Nitroglycerin, and 2.5 mg Verapamil Intraarterial by Ricky Lau MD, FACC. This is given to reduce risk of vessel spasm and thrombosis. twilson 03:42 PM 5Fr TIG catheter inserted over the wire C twilson 03:42 PM Wire removed twilson 03:43 PM Recorded Pressure: Ao, KJ=742, Condition=Condition 1 (Aorta) Ao 100/82/90 03:43 PM Time: 15:28LOC: 4 = Oriented but drowsy twilson 03:43 PM Time: 15:28 Patient comfortable and pain free: Yes twilson 03:43 PM Recorded Pressure: Ao, GM=897, Condition=Condition 1 (Aorta) Ao 103/87/94 03:43 PM LCA angiography performed in multiple views. twilson 03:44 PM Recorded Pressure: Ao, MZ=308, Condition=Condition 1 (Aorta) Ao 108/89/98 03:44 PM RCA angiography performed in multiple views. twilson 03:45 PM Coronary Dominance: right twilson 03:45 PM HR=97 bpm, LAUD=278/74 mmhg, SpO2=94.0 % 03:45 PM Wire reinserted. twilson 03:45 PM Catheter removed twilson 03:46 PM 5Fr Pigtail catheter inserted over the wire DNC twilson 03:47 PM Recorded Pressure: LV, JB=622, Condition=Condition 1 (Left Ventricle) LV 121/18/32 03:47 PM Catheter selectively placed in left ventricle twilson 03:47 PM Wire removed, intact. twilson 03:48 PM Recorded Pressure: LV, Ao, WF=952, Condition=Condition 1 (Left Ventricle) LV 120/10/35, (Aorta) Ao 92/-33/21 03:48 PM Recorded Pressure: LV, Ao, AP=087, Condition=Condition 1 (Left Ventricle) LV 274/142/274, (Aorta) Ao 108/58/81 03:48 PM Bolus angiogram of left Ventricle complete: 12 ml/sec for a total of 30 mls twilson 03:49 PM Recorded Pressure: LV, MH=604, Condition=Condition 1 (Left Ventricle) LV 109/77/80 03:50 PM LX=188 bpm, LOOB=640/73 mmhg, SpO2=94.0 %, Resp=23 B/min 03:54 PM Catheter removed twilson 03:54 PM Wire removed twilson 03:54 PM Reviewing films. twilson 03:54 PM Praparing for intervention. twilson 03:54 PM Lesion found in Mid RCA. Pre Stenosis: 30 Pre YEN Flow: twilson 03:55 PM Lesion found in Distal RCA. Pre Stenosis: 80 Pre YEN Flow: 3: Complete and Brisk Flow/Perfusion twilson 03:55 PM HR=99 bpm, VATM=830/76 mmhg, SpO2=94.0 %, Resp=18 B/min 03:55 PM Lesion found in Mid LAD. Pre Stenosis: 50 Pre YEN Flow: twilson 03:56 PM Lesion found in 1st Marginal. Pre Stenosis: 95 Pre YEN Flow: 2: Partial Flow/Perfusion (> 1 but < 3) twilson 03:56 PM Circumflex, Obtuse Marginal, Left Posterior Descending, and Left Posterolateral Coronary Arteries with 95 % stenosis. If graft is supplying this area, 0 % stenosis twilson 03:56 PM Mid/Distal Left Anterior Descending Coronary Artery and diagonal branches with 50% stenosis. If graft is supplying this area, 0 % stenosis twilson 03:56 PM Right Coronary, Right Posterior Descending Arteries with Right Posterolateral and Acute Marginal branches with 80 % stenosis. If graft is supplying this area, 0 % stenosis twilson 03:56 PM Inflation device was opened. twilson 03:56 PM ACT drawn. twilson 03:57 PM 6Fr IM Runway guide catheter was used to cannulate the PCI vessel successfully. reused? No twilson 03:59 PM .014 [place] 190cm guide wire across target lesion- successful. reused? No twilson 03:59 PM Time: 15:43 Patient comfortable and pain free: Yes twilson :59 PM Time: 15:43LOC: 4 = Oriented but drowsy twilson 04:00 PM At 16:00 the ACT was 166 seconds. twilson 04:00 PM RW=020 bpm, PKWO=539/77 mmhg, SpO2=94.0 % 04:00 PM Time: 16:00 Heparin 3000 units Intravenous Given by Iveth Ruiz RN twilson 04:01 PM 3.0mm x 16mm Synergy drug-eluting stent across target lesion- successful Lot #[id number] twilson 04:03 PM Stent deployed @ 14 samantha for 30 seconds twilson 04:04 PM Recorded Pressure: Ao, HE=107, Condition=Condition 1 (Aorta) Ao 117/97/109 04:05 PM Time: 16:04 Aggrastat Bolus: 37.5 ml Intravenous Given by Iveth Ruiz RN Pierce pump twilson 04:05 PM Stent delivery system removed intact. twilson 04:05 PM BG=999 bpm, NTTJ=223/81 mmhg, SpO2=94.0 % 04:05 PM 3.0 mm x 8mm NC Trek Rx balloon across target lesion- successful. reused? No twilson 04:06 PM Time: 16:05 Aggrastat 12.5mg/250ml 13.5 ml Intravenous Given by Iveth Ruiz RN Pierce pump twilson 04:06 PM Balloon inflated @ 18 samantha for 26 seconds twilson 04:08 PM Balloon catheter removed intact. twilson 04:08 PM Guidewire removed. J-Wire reinserted and guide catheter removed, intact. tw:08 PM 6Fr CLS 3.0 Runway guide catheter was used to cannulate the PCI vessel successfully. reused? No 04:10 PM IQ=102 bpm, IAXG=995/82 mmhg, SpO2=90.0 %, Resp=21 B/min 04:10 PM guidewire reinserted tw 04:12 PM 2.0 mm x 20 mm Emerge Monorail balloon across target lesion- successful. reused? No : PM Balloon inflated @ 12 samantha for 16 seconds tw: PM Balloon inflated @ 12 samantha for 14 seconds tw: PM Time: 15:59LOC: 4 = Oriented but drowsy :14 PM Time: 15:59 Patient comfortable and pain free: Yes : PM Time: 16:14 Nitroglycerin 200 mcg Intracoronary Given by Ricky Lau MD 04:15 PM Time: 16:14 Versed 1 mg Intravenous Given by Iveth Ruiz RN 04:15 PM Time: 16:15 Fentanyl 25 mcg Intravenous Given by Iveth Ruiz RN 04:15 PM HR=98 bpm, CRRN=669/84 mmhg, SpO2=89.0 %, Resp=33 B/min 04:15 PM Balloon catheter removed intact. tw:16 PM Recorded Pressure: Ao, HR=99, Condition=Condition 1 (Aorta) Ao 114/95/104 04:19 PM 2.25mm x 28mm Synergy drug-eluting stent across target lesion- successful Lot #[id number] : PM Stent deployed @ 12 samantha for 28 seconds twilson :19 PM Recorded Pressure: Ao, HR=99, Condition=Condition 1 (Aorta) Ao 106/88/96 04:20 PM HR=98 bpm, FNUL=707/77 mmhg, SpO2=96.0 %, Resp=21 B/min 04:20 PM Recorded Pressure: Ao, HR=97, Condition=Condition 1 (Aorta) Ao 101/77/87 04:21 PM Time: 16:21 Nitroglycerin 200 mcg Intracoronary Given by Ricky Lau MD 04:25 PM HR=95 bpm, EQYO=736/63 mmhg, SpO2=96.0 %, Resp=20 B/min 04:26 PM Guide catheter removed intact. tw 04: PM Guide wire removed intact. twilson 04:28 PM Procedure completed at 16:28 twilson 04: PM Sign out completed: Radiation Dose 1043.57 mGy Fluoro Time: 9.9 Isovue 370 - 200ml contrast 180 ml given by Ricky Lau MD, [facility]. Complications: NoneCardiac Rehab Consult needed: YesConfirmed administered medications: Yes twilson 04:29 PM Isovue 370 - 500ml,1 Bottle(s) used. twilson :29 PM Arterial sheath pulled, Vasc Band closure device used and was Successful S/N. twilson :29 PM Estimated Blood Loss: minimal twilson :29 PM Post ECG NSR twilson 04:30 PM Post Blood Pressure 110/63 twilson 04:30 PM 16:30 Post Pulses Bilateral DP & PT 2+ twilson 04:30 PM 16:30 Post Pulses Bilateral radial 2+ twilson 04:30 PM HR=95 bpm, GMQG=163/69 mmhg, SpO2=94.0 %, Resp=23 B/min 04:30 PM Information taught Cardiac Cath, PCI, and Vasc Band twilson 04:30 PM Education needs Procedure, Plan of Care, and Responsibilities of Patient in Care twilson 04:30 PM Learning barriers :None twilson 04:30 PM Education Methods Verbal twilson 04:30 PM Education evaluation Able to repeat information twilson 04:30 PM Site status No bleeding/hematoma - Rt Wrist as reported by Larissa Hoffman RT (R) at 16:30 twilson 04:30 PM 12 ml air in Vasc Band. twilson 04:31 PM Delay to floor No twilson 04:31 PM Plavix, Effient or Brilinta given Yes twilson 04:31 PM Family placed in consult room. twilson 04:35 PM HR=94 bpm, VBMZ=401/76 mmhg, Resp=19 B/min 04:36 PM Time: 16:35 Brilinta 180 mg Orally Given by Iveth Ruiz RN twilson 04:40 PM Report given to Nayely LEYVA Pt taken to 3B Room #48. 16:38 twilson 04:42 PM Patient out of room: 16:42 twilson Complications Complication None Hemodynamics Pressures Site Systolic/A Wave Diastolic/V Wave Mean AO 100 82 90 AO 103 87 94 AO 108 89 98 LV 121 18 32 LV 109 77 80 LV 274 142 274 AO 108 58 81 LV 120 10 35 AO 92 -33 21 AO 117 97 109 AO 114 95 104 AO 106 88 96 AO 101 77 87 Post Procedure Information Blood Pressure: 110/63 mmHg Rhythm: NSR Post procedural instructions were given Closure Device Time Device Success/Fail 03/01/2017 4:31:00 PM Mechanical Compression Successful Site Checks Time Location Status Staff Sheath In? Note 04:30 PM Rt Wrist No bleeding/hematoma Larissa Hoffman RT (R) Pulses Time Site Pre-Procedure Post-Procedure Note 03/01/2017 3:27:00 PM Bilateral radial 2+ 03/01/2017 3:27:00 PM Bilateral DP & PT 2+ 4:30:00 PM Bilateral DP & PT 2+ 4:30:00 PM Bilateral radial 2+ Updated by Karyn Del Rio RT (R) on 03/01/2017 4:43:25 PM electronically signed on 03/01/2017 4:44:11 PM with status of Final
--- NOTE | 2017-03-01 18:45 | Electrocardiograph Report ---
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
--- NOTE | 2017-03-01 18:46 | Electrocardiograph Report ---
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
--- NOTE | 2017-03-01 19:14 | Electrocardiograph Report ---
[place] [address] Test Date: 2017-02-28 Pat Name: Alexander Bowen Department: 113 Room: 3B48 Gender: M Instructor Watch Assembly: ASHWIN : 1965 Requested By: Zoya Perkins Order Number: [id number] Reading MD: Sai Yeung DO Measurements Intervals [place] Rate: 107 P: 54 MA: 156 QRS: 41 QRSD: 116 T: -36 QT: 330 QTc: 393 Interpretive Statements SINUS TACHYCARDIA WITH OCCASIONAL VENTRICULAR PREMATURE COMPLEXES MODERATE INTRAVENTRICULAR CONDUCTION DELAY INFERIOR ST-T CHANGES POSSIBLY DUE TO ISCHEMIA Electronically Signed On 03-01-2017 19:13:11 EST by Sai Yeung DO
--- NOTE | 2017-03-01 19:28 | Event Note ---
Date of Encounter: 03/01/17 Time of Encounter: 19:21 I evaluated Mr. Bowen at the bedside at the request of the nurse practitioner Naima Rogers. Patient appears to be in respiratory distress, fidgety, tachypneic. Heart is tachycardic, regular S1-S2. Lung exam with bilateral equal breath sounds. Fine Rales on the right upper lobe anteriorly, clear posteriorly on bilateral lung nassar with no wheezes or crackles. Extremities with no edema clubbing or cyanosis Assessment: Patient is status post PCI with 2 stents placed earlier today. Was admitted yesterday for pneumonia. Reported sudden onset severe shortness of breath. Plan: We will obtain chest x-ray stat to evaluate for progression of pneumonia versus pleural effusion pneumothorax, etc. We will obtain ABG. Will obtain EKG stat. Consider workup for pulmonary embolism. We will discuss with cardiology. He is at high risk due to the fact that he had a cardiovascular study with IV contrast done earlier today. We will hold off from empiric only anticoagulating him due to recent cardiac catheterization and IV antiplatelet therapy which will put him at high risk for bleeding. We will consider obtaining CT angiogram of the chest with IV contrast. A rapid response was called at 7:20 PM. I arrived at the bedside and patient appears in respiratory distress, tachypneic. He denies chest pain. Her response was called for fast heart rate. He went up to go to the bathroom and his right heart rate went to 170. EKG was done and shows SVT with heart rate 168. This has been sustained for the last 5 minutes. We placed the patient on a park portable monitor. Heart rate is 168. Regular. Narrow complex. Plan: We administered 6 mg IV adenosine followed by 12 mg IV adenosine. The patient cardioverted to normal sinus. Blood pressure is 141/111. I have ordered 5 mg of IV metoprolol. We will proceed with CT angiogram and will transfer the patient to the ICU. I have signed out the case to the production supervisor off shift hospitalist physician who was present at the bedside. The high probability of emergent and significant clinical decompensation with potential impairment of cardiovascular function required my full attention and presence at the bedside. I spent 35 minutes of critical care time which involved decision making of high complexity to assess, manipulate, and support vital organ system, in order to prevent further life threatening deterioration of the patient's condition. The critical care time was spent in the patient's room and its close proximity and involved obtaining updated history and examining the patient, reviewing EKGs, imaging studies and laboratory data, ordering diagnostic studies, medications and laboratory studies, and reevaluating for clinical response. The time took to perform any procedures was not included in the critical care time stated above.
[2017-03-01] MEDS ORDERED: *HR* Metoprolol 5 MG/5 ML VIAL IVP ONE (19:42)
[2017-03-01] MEDS ORDERED: methylPREDNISolone 125 MG/2 ML VIAL IVP ONE (19:47)
--- NOTE | 2017-03-01 19:59 | Electrocardiograph Report ---
[address] [address] Test Date: 2017-02-28 Pat Name: Alexander Bowen Department: 113 Room: 3B48 Gender: M Conference Producer: ASHWIN : 1965 Requested By: Zoya Perkins Order Number: [id number] Reading MD: Ricky Lau MD Measurements Intervals [place] Rate: 110 P: 54 [place]: 150 QRS: 44 QRSD: 118 T: -37 QT: 321 QTc: 386 Interpretive Statements SINUS TACHYCARDIA WITH FREQUENT VENTRICULAR PREMATURE COMPLEXES IN A BIGEMINAL PATTERN Electronically Signed On 03-01-2017 19:58:07 EST by Ricky Lau MD
[2017-03-01 20:57] LABS: ABG Base Excess -3 mEq/L (-2 to 3); ABG HCO3 19 mEq/L (21-27); ABG Oxygen Saturation 98 % (95-98); ABG PCO2 28 mmHg (35-45); ABG PH 7.45 pH Units (7.32-7.45); ABG PO2 101 mmHg (85-104); ABG TCO2 20 mEq/L (20-26)
[2017-03-01] MEDS: Levalbuterol Neb 1.25 MG/3 ML IH SCH ×2 (20:58→23:35)
[2017-03-01] MEDS: Azithromycin 500 MG in D5% in Water 250 ML IVPB SCH (22:03)
[2017-03-01] MEDS: *HR* Ticagrelor 90 MG TABLET PO SCH (22:04)
[2017-03-02] MEDS: 0.9 % Sodium Chloride 1,000 ML IVC SCH ×2 (01:34→09:21)
[2017-03-02] MEDS: Levalbuterol Neb 1.25 MG/3 ML IH SCH ×6 (04:17→22:59)
[2017-03-02] MEDS: Ipratropium/Albuterol Neb 3 ML IH SCH ×2 (04:18→07:52)
[2017-03-02 04:40] LABS: Basophils % 0.1 %; Hematocrit 40.1 % (37.5-50.1); Hemoglobin 13.2 g/dL (12.9-16.9); Immature Granulocytes % 0.9 % (0-4); Lymphocytes # 0.7 K/mcL (0.6-4.6); Lymphocytes % 8.3 %; Mean Corpuscular HGB Conc 32.9 g/dL (31.6-35.5); Mean Corpuscular Hemoglobin 27.8 pg (28.0-33.3); Mean Corpuscular Volume 84.6 fL (83.0-100.0); Mean Platelet Volume 11.7 fL (9.4-12.4); Monocytes # 0.3 K/mcL (0.0-1.3); Monocytes % 3.3 %; Neutrophils # 7.8 K/mcL (1.6-8.9); Platelet Count 239 K/mcL (140-400); Red Blood Count 4.74 M/mcL (4.19-5.50); Red Cell Distribution Width 13.3 % (11.5-14.5); Segmented Neutrophils % 87.4 %
[2017-03-02 08:51] LABS: Alanine Aminotransferase 208 Units/L (7-52); Albumin 3.2 g/dL (3.5-5.7); Albumin/Globulin Ratio 1.1 (1.1-2.2); Alkaline Phosphatase 119 Units/L (34-104); Aspartate Amino Transferase 389 Units/L (13-39); BUN/Creatinine Ratio 19 (6-26); Blood Urea Nitrogen 17 mg/dL (6-20); Carbon Dioxide 14 mEq/L (23-29); Chloride 103 mEq/L (98-107); Globulin 2.8 g/dL (2.4-3.5); Glucose 146 mg/dL (70-105); Osmolality,Calculated 276 (280-300); Potassium 4.7 mEq/L (3.5-5.1); Sodium 131 mEq/L (136-145); eGFR For African Americans > 60 (> 60); eGFR For Non-African Americans > 60 (> 60)
[2017-03-02] MEDS: Nicotine 14 MG PATCH.TD24 TD SCH (09:09)
[2017-03-02] MEDS: *HR* Ticagrelor 90 MG TABLET PO SCH ×2 (09:10→20:01)
[2017-03-02] MEDS: Aspirin Enteric Coated 81 MG Tablet PO SCH (09:10)
[2017-03-02] MEDS: Metoprolol XL (24 HR) Succ 25 MG TAB.ER.24H PO SCH (09:11)
[2017-03-02] MEDS: cefTRIAXone 1,000 MG in Water for inj. (sterile) 10 ML IVPB SCH (09:11)
[2017-03-02 09:13] LABS: Magnesium 2.1 mg/dL (1.6-2.6); Phosphorous 3.5 mg/dL (2.7-4.5)
--- NOTE | 2017-03-02 09:48 | Internal Med Progress Note ---
Date of Encounter: 03/02/17 Time of Encounter: 09:35 - Assessment and plan (1) Multifocal pneumonia Current Visit: Yes Status: Acute Assessment and plan: CT chest findings consistent multifocal PNA clinically improving, therefore will continue IV ceftriaxone and Azithromycin O2 supplementation as needed pt reports of not being on home oxgyen, titrate off O2 therapy as tolerated preliminary blood cultures report no growth (2) Acute systolic (congestive) heart failure Current Visit: Yes Status: Acute Assessment and plan: 2D echo from 03/01/17 reported: LVEF of 25% with severe LV systolic and diastolic dysfunction. Moderate to severe pulmonary hypertension no clinical signs of CHF decompensation continue home dose of lasix cardiology on board will closely monitor (3) NSTEMI (non-ST elevated myocardial infarction) Current Visit: Yes Status: Acute Assessment and plan: s/p PCI with 2 PRECIOUS placement on 03/01/17 no chest pain reported at this time continue ASA, Brilinta, BB, statin reported episode of SVT yesterday evening, cardiology informed, will follow up (4) HTN (hypertension) Current Visit: Yes Status: Chronic Assessment and plan: BP within acceptable range continue Lisinopril, BB will closely monitor BP Qualifiers: Hypertension type: essential hypertension Qualified Code(s): I10 - Essential (primary) hypertension (5) DVT prophylaxis Current Visit: Yes Status: Acute Assessment and plan: Heparin SQ (6) Increased anion gap metabolic acidosis Current Visit: Yes Status: Acute Assessment and plan: bicarb deficit: 6.8amp will hold off on giving any more IV fluids given EF of 25% will start PO bicarb 650mg PO TID will closely monitor - Time Spent With Patient Greater than 35 minutes - Subjective Interval history: Patient seen and examined at bedside. Resting in bed and reports of feeling significantly better since last night Yesterday evening patient had acute respiratory distress s/p PCI with 2 PRECIOUS placement. He was transferred to the ICU due to severe respiratory distress and SVT. He required 2 dose of IV adenosine. Currently is tachycardic but NSR Denies any chest pain, shortness of breath, and saturating well on nasal cannula - Constitutional Vitals: Temp Pulse Resp BP Pulse Ox 97.4 F L 96 16 138/95 97 03/02/17 08:39 03/02/17 09:00 03/02/17 09:00 03/02/17 09:00 03/02/17 09:00 General appearance: Present: cooperative, A&O X 3, pleasant, no acute distress, answers questions appropriately - Head Head exam: Present: atraumatic, normocephalic - Respiratory Respiratory exam: Present: decreased breath sounds (equal air entry bilaterally , coarse breath sounds on right bases). Absent: respiratory distress, wheezes - Cardiovascular Cardiovascular exam: Present: +S1, +S2, tachycardia. Absent: diastolic murmur, systolic murmur - GI/Abdominal GI/Abdominal exam: Present: normal bowel sounds, soft, no peritoneal signs. Absent: distended, tenderness - Extremities Exam Extremities exam: Present: warm, radial pulses palpable and symmetrical. Absent : calf tenderness, cyanotic, pedal edema - Neurological Exam Neurological exam: Present: alert, oriented X3 - Psychiatric Psychiatric exam: Present: normal affect, normal mood Internal Medicine: Result - Labs CBC & Chem 7: 03/02/17 04:17 03/02/17 04:17 Labs: Short CBC 03/02/17 Range/Units 04:17 WBC 9.0 (4.3-11.1) K/mcL Hgb 13.2 (12.9-16.9) g/dL Hct 40.1 (37.5-50.1) % Plt Count 239 (140-400) K/mcL Neutrophils # 7.8 (1.6-8.9) K/mcL BMP 03/02/17 04:17 Sodium 131 L Potassium 4.7 Chloride 103 Carbon Dioxide 14 L BUN 17 Creatinine 0.88 Glucose 146 H Calcium 9.0 Liver Function 03/02/17 Range/Units 04:17 AST 389 H (13-39) Units/L ALT 208 H (7-52) Units/L Alkaline Phosphatase 119 H (34-104) Units/L Albumin 3.2 L (3.5-5.7) g/dL - ABG Interpretation ABG results: ABG ABG pH 7.45 pH Units (7.32-7.45) 03/01/17 20:54 ABG pCO2 28 mmHg (35-45) L 03/01/17 20:54 ABG pO2 101 mmHg (85-104) 03/01/17 20:54 ABG O2 Saturation 98 % (95-98) 03/01/17 20:54 PT/INR, D-dimer PT 15.5 Seconds (9.4-12.1) H 03/01/17 03:18 D-Dimer 1810 ng/mLFEU (0-500) H 03/01/17 19:19 - Impressions Impressions Chest X-Ray 03/01/17 00:00 IMPRESSION: Mildly increased bilateral lower lung airspace opacity, compatible with edema and/or multifocal pneumonia. Increasing pulmonary vascular congestion. D/ / Niranjan Jernigan MD / Niranjan Jernigan MD Interpreting Provider: Niranjan Jernigan MD Knee X-Ray 03/01/17 16:04 IMPRESSION: Mild osteoarthritis. D/ / 03/01/2017 20:10:42 Eliud Montero MD / Ana Rosa Bauer Interpreting Provider: Eliud Montero MD Echocardiogram 03/01/17 16:38 Impressions: LVEF 25%. Moderately dilated left ventricle. Severe global left ventricular systolic dysfunction. Severe left ventricular diastolic dysfunction. Atypical septal motion consistent with bundle branch block. Mildly dilated and mildly hypokinetic right ventricle. Severely dilated left atrium. Apically displaced mitral valve leaflets with severe mitral regurgitation. Mild tricuspid regurgitation. Moderate-severe pulmonary hypertension. Estimated RVSP is 53-58 mmHg, including an estimated RA pressure of 15-20 mmHg. Findings: Study Quality * Technically adequate exam. ECG Findings * Sinus rhythm with BBB. Left Ventricle * LVEF 25%. * Moderately dilated left ventricle. * Severe global left ventricular systolic dysfunction. * Severe left ventricular diastolic dysfunction. * Atypical septal motion consistent with bundle branch block. Right Ventricle * Mildly dilated and mildly hypokinetic right ventricle. Left Atrium * Severely dilated left atrium. Right Atrium * Moderately dilated right atrium. Interatrial Septum * No evidence of a PFO by color Doppler. Aortic Valve * Trileaflet aortic valve with normal function. * No aortic regurgitation. * No aortic stenosis. Mitral Valve * Normal mitral valve structure. Leaflets are apically displaced. * Severe mitral regurgitation. * No mitral stenosis. Tricuspid Valve * Normal tricuspid valve structure. * Mild tricuspid regurgitation. * Moderate-severe pulmonary hypertension. * Estimated RVSP is 53-58 mmHg. * Estimated RA pressure is 15-20 mmHg. Pulmonic Valve * No pulmonic regurgitation. Aorta * Normally sized aortic root. Pericardium * The pericardium appears normal. IVC * The IVC is dilated. * < 50% respiratory change. Pulmonary Artery * Normal visualized portions of the main pulmonary artery. Chest CTA 03/01/17 19:24 IMPRESSION: 1. No CT evidence of a pulmonary embolism. 2. Small right pleural effusion with multifocal airspace consolidation throughout both lungs, most notable within the right middle lobe, most consistent with multifocal pneumonia. 3. Scattered ground-glass nodular opacities throughout both lungs, most notably within the left upper lobe, most likely reflect the continuum of multifocal pneumonia. However, suggest appropriate clinical treatment, and short-term chest CT follow-up in 6-8 weeks to ensure resolution of these more nodular opacities, as pulmonary malignancy cannot be excluded. 4. Mild bibasilar predominant interstitial pulmonary edema. 5. Mediastinal lymphadenopathy, as detailed above, most likely benign and reactive in etiology. However, this should also be followed to ensure stability or resolution, as malignant lymphadenopathy is not excluded. D/ / 03/01/2017 21:29:15 Sean Perdomo MD / Ana Rosa Bauer Interpreting Provider: Sean Perdomo MD Consult Discharge Plan - Plan Referrals: Salbador Madrid, [Primary Care Provider] -
[2017-03-02 09:55] LABS: Sodium, Urine 46.4 mEq/L
[2017-03-02 10:16] LABS: Bilirubin,Total 1.8 mg/dL (0.3-1.0)
--- NOTE | 2017-03-02 13:04 | Cardiology Progress Note ---
<Andrade Burgess - Last Filed: 03/02/17 14:02> Date of Encounter: 03/02/17 Time of Encounter: 10:15 Assessment and Plan (1) SVT (supraventricular tachycardia) Current Visit: Yes Status: Acute On 03/01/17, patient developed respiratory distress after his cardiac catheterization. He appeared to be fidgety and tachypneic. A rapid response was called at 7:20 p.m. Patient denied having any chest pain, but was in respiratory distress and was tachypneic. Patient's heart rate elevated to 170. EKG obtained demonstrated SVT with a heart rate of 168. This was sustained for several minutes. Regular, narrow complex. 6 mg IV adenosine was ordered, followed by 12 mg of IV adenosine. Patient subsequently converted to normal sinus. Patient's blood pressure was elevated at 141/111; IV metoprolol was ordered. Patient was transferred to ICU. Patient's vital signs this morning are within normal limits. Pulse 87, respiratory rate 16. CTA demonstrated multifocal PNA. Plan: -Continuous cardiac monitoring. -Medical management: ASA 81 mg PO daily, Brilinta 90 mg PO BID, metoprolol XL 12.5 mg PO daily. -Patient will need cardiac rehab. -Cardiology will sign off. (2) Elevated troponin I level Current Visit: Yes Status: Deleted Laboratory examination on arrival demonstrated an elevated troponin level of 0.05. Troponins were trended; 0.05, 0.06, 0.06. Patient is status post PCI with 2 drug-eluting stents placed on 03/01/17. Plan: -Continue medical therapy: ASA 81 mg PO daily, Brilinta 90 mg PO BID, metoprolol XL 12.5 mg PO daily. (3) Chest pain Current Visit: Yes Status: Acute Patient initially describes sharp pain located in the lower portion of his left chest. -Patient is status post cardiac catheterization. -Denies having any chest pains morning. Qualifiers: Chest pain type: other chest pain Qualified Code(s): R07.89 - Other chest pain; R07.8 - Other chest pain (4) Heart failure Current Visit: Yes Status: Acute Echocardiogram was performed on 03/01/17; demonstrated the following: -Ejection fraction of 25%. -Moderately dilated left ventricle. -Severe global left ventricular systolic dysfunction. -Severe left ventricular diastolic dysfunction. -Atypical septal motion consistent with BBB. -Mildly dilated and mildly hypokinetic right ventricle. -Severely dilated left atrium. -Apically displaced mitral valve leaflets with severe mitral regurgitation. -Mild tricuspid regurgitation. -Moderate to severe pulmonary HTN. -Estimated RVSP is 53-58 mmHg, including an estimated right atrial pressure of 15-21 mmHg. Qualifiers: Qualified Code(s): I50.9 - Heart failure, unspecified Discussion w patient/family: The assessment and plan as outlined above was discussed with the patient and/or family members who expressed understanding and agreement. All questions were answered. Thank you for involving us in the care of your patient. Please call with any questions. Subjective Interval history: Patient was seen and examined at bedside this morning. Denies having any palpitations, chest pain, or shortness of breath. S/p cath; denies any complications from the procedure. Patient had a nonproductive cough. No other complaints at this time. Objective Vital Signs, Last 4 Hours Temp Pulse Resp BP Pulse Ox 03/02/17 11:37 97.7 F 03/02/17 11:12 16 98 03/02/17 11:00 87 16 120/86 97 Results 03/02/17 04:17 03/02/17 04:17 Lab Results 03/01/17 03/01/17 03/02/17 19:19 19:20 04:17 WBC 9.0 Hgb 13.2 Hct 40.1 Plt Count 239 D-Dimer 1810 H Sodium Potassium Chloride Carbon Dioxide BUN Creatinine Glucose Calcium Magnesium Total Bilirubin AST ALT Alkaline Phosphatase B-Natriuretic Peptide 1203 H 03/02/17 04:17 WBC Hgb Hct Plt Count D-Dimer Sodium 131 L Potassium 4.7 Chloride 103 Carbon Dioxide 14 L BUN 17 Creatinine 0.88 Glucose 146 H Calcium 9.0 Magnesium 2.1 Total Bilirubin 1.8 H AST 389 H ALT 208 H Alkaline Phosphatase 119 H B-Natriuretic Peptide Consult Discharge Plan - Plan Referrals: Salbador Madrid DO [Primary Care Provider] - <Gabbie Cain - Last Filed: 03/02/17 16:46> Date of Encounter: 03/02/17 Assessment and Plan Discussion w patient/family: I examined this patient and my medical decision-making was reviewed with the Resident Physician. I agree with the documented findings, disposition and treatment plan. Overnight events on this patient were reviewed. Patient developed respiratory distress - CT chest demonstrated multifocal pneumonia. He developed a regular narrow complex tachycardia that converted with 12mg of adenosine. ECG during dysrhythmia was reviewed most consistent with SVT. Rhythm strips not available at time of Adenosine administration. At the bedside today, he is in no acute distress and is feeling better. He will be transferred to floor today. Renal function remains normal after cath. Hgb and platelet count are normal. Continue DAPT (PCI performed yesterday), BB, statin and ACEI. Will add low dose spironolactone. Recommend cardiac rehab. Anticipate sign off tomorrow. Will re-evaluate LV systolic function and degree of MR as an outpatient. Discussed possibility of AICD placement in the future if EF does not improve. All patient questions were answered. Objective Vital Signs, Last 4 Hours Pulse Resp BP Pulse Ox 03/02/17 16:05 98 03/02/17 15:05 88 18 106/88 98 03/02/17 13:00 101 124/78 98 Results 03/02/17 04:17 03/02/17 04:17 Lab Results 03/01/17 03/01/17 03/02/17 19:19 19:20 04:17 WBC 9.0 Hgb 13.2 Hct 40.1 Plt Count 239 D-Dimer 1810 H Sodium Potassium Chloride Carbon Dioxide BUN Creatinine Glucose Calcium Magnesium Total Bilirubin AST ALT Alkaline Phosphatase B-Natriuretic Peptide 1203 H 03/02/17 04:17 WBC Hgb Hct Plt Count D-Dimer Sodium 131 L Potassium 4.7 Chloride 103 Carbon Dioxide 14 L BUN 17 Creatinine 0.88 Glucose 146 H Calcium 9.0 Magnesium 2.1 Total Bilirubin 1.8 H AST 389 H ALT 208 H Alkaline Phosphatase 119 H B-Natriuretic Peptide
[2017-03-02] MEDS: Spironolactone 25 MG TABLET PO SCH (17:08)
[2017-03-02] MEDS: *HR* Heparin 5,000 UNIT/ML VIAL SQ SCH (17:09)
[2017-03-02] MEDS: Azithromycin 500 MG in D5% in Water 250 ML IVPB SCH (17:09)
[2017-03-03] MEDS: Levalbuterol Neb 1.25 MG/3 ML IH SCH ×4 (03:40→15:50)
[2017-03-03 03:57] LABS: Hematocrit 33.2 % (37.5-50.1); Immature Granulocytes % 0.9 % (0-4); Immature Platelets 9.2 % (1.1-6.1); Lymphocytes # 0.8 K/mcL (0.6-4.6); Lymphocytes % 7.5 %; Mean Corpuscular HGB Conc 33.4 g/dL (31.6-35.5); Mean Corpuscular Hemoglobin 28.3 pg (28.0-33.3); Mean Corpuscular Volume 84.7 fL (83.0-100.0); Mean Platelet Volume 11.9 fL (9.4-12.4); Monocytes # 0.7 K/mcL (0.0-1.3); Monocytes % 6.8 %; Neutrophils # 9.3 K/mcL (1.6-8.9); Platelet Count 227 K/mcL (140-400); Red Blood Count 3.92 M/mcL (4.19-5.50); Red Cell Distribution Width 13.4 % (11.5-14.5); Segmented Neutrophils % 84.8 %
[2017-03-03 04:13] LABS: Alanine Aminotransferase 150 Units/L (7-52); Albumin 2.7 g/dL (3.5-5.7); Alkaline Phosphatase 106 Units/L (34-104); Aspartate Amino Transferase 129 Units/L (13-39); BUN/Creatinine Ratio 25 (6-26); Bilirubin,Total 0.8 mg/dL (0.3-1.0); Blood Urea Nitrogen 19 mg/dL (6-20); Calcium 8.8 mg/dL (8.6-10.3); Carbon Dioxide 24 mEq/L (23-29); Chloride 105 mEq/L (98-107); Globulin 2.6 g/dL (2.4-3.5); Glucose 211 mg/dL (70-105); Osmolality,Calculated 287 (280-300); Potassium 4.1 mEq/L (3.5-5.1); Sodium 134 mEq/L (136-145); Total Protein 5.3 g/dL (6.4-8.9); eGFR For African Americans > 60 (> 60); eGFR For Non-African Americans > 60 (> 60)
[2017-03-03 04:33] LABS: Hemoglobin 11.1 g/dL (12.9-16.9)
[2017-03-03] MEDS: *HR* Heparin 5,000 UNIT/ML VIAL SQ SCH (05:24)
[2017-03-03] MEDS: Metoprolol XL (24 HR) Succ 25 MG TAB.ER.24H PO SCH (08:10)
[2017-03-03] MEDS: Aspirin Enteric Coated 81 MG Tablet PO SCH (08:10)
[2017-03-03] MEDS: Nicotine 14 MG PATCH.TD24 TD SCH (08:10)
[2017-03-03] MEDS: *HR* Ticagrelor 90 MG TABLET PO SCH (08:10)
[2017-03-03] MEDS: Spironolactone 25 MG TABLET PO SCH (08:10)
[2017-03-03] MEDS: cefTRIAXone 1,000 MG in Water for inj. (sterile) 10 ML IVPB SCH (08:11)
[2017-03-03 11:45] VITALS: BP 123/82
--- NOTE | 2017-03-03 12:56 | Discharge Summary ---
Date of Encounter: 03/03/17 Time of Encounter: 12:48 - Discharge Diagnosis (1) Multifocal pneumonia Priority: Primary Status: Acute (2) Acute systolic (congestive) heart failure Priority: Primary Status: Acute (3) NSTEMI (non-ST elevated myocardial infarction) Priority: Primary Status: Acute (4) HTN (hypertension) Priority: Secondary Status: Chronic Qualifiers: Hypertension type: essential hypertension Qualified Code(s): I10 - Essential (primary) hypertension (5) DVT prophylaxis Priority: Secondary Status: Acute (6) Increased anion gap metabolic acidosis Priority: Secondary Status: Resolved - Discharge Medications Prescriptions: Aspirin Enteric Coated [Aspirin EC] 81 mg PO DAILY #30 tablet. Atorvastatin [Lipitor] 40 mg PO HS #30 tablet levoFLOXacin [Levaquin] 750 mg PO DAILY #4 tablet Lisinopril [Zestril] 5 mg PO DAILY #30 tablet Metoprolol XL (24 HR) Succ [Toprol Xl] 12.5 mg PO DAILY #30 tab.er.24h Nicotine Patch [Nicoderm] 14 mg TD DAILY #5 patch.td24 Spironolactone [Aldactone] 12.5 mg PO DAILY #30 tablet Ticagrelor [Brilinta] 90 mg PO BID #60 tablet Home Medications: Albuterol Sulfate [Albuterol Inhaler] 2 puff IH Q6H PRN 02/28/17 [History] Naproxen 500 mg PO BID PRN 02/28/17 [History] Aspirin Enteric Coated [Aspirin EC] 81 mg PO DAILY #30 tablet. 03/03/17 [Rx] Atorvastatin [Lipitor] 40 mg PO HS #30 tablet 03/03/17 [Rx] Lisinopril [Zestril] 5 mg PO DAILY #30 tablet 03/03/17 [Rx] Metoprolol XL (24 HR) Succ [Toprol Xl] 12.5 mg PO DAILY #30 tab.er.24h 03/03/17 [Rx] Nicotine Patch [Nicoderm] 14 mg TD DAILY #5 patch.td24 03/03/17 [Rx] Spironolactone [Aldactone] 12.5 mg PO DAILY #30 tablet 03/03/17 [Rx] Ticagrelor [Brilinta] 90 mg PO BID #60 tablet 03/03/17 [Rx] levoFLOXacin [Levaquin] 750 mg PO DAILY #4 tablet 03/03/17 [Rx] Allergies/Adverse Reactions: 3 Allergy/AdvReac Type Severity Reaction Status Date / Time Penicillins [PCN] AdvReac See Verified 02/28/17 11:23 Comments Procedures/tests Complete & Pending: Procedures Performed prior 72 hours Category Date Time Status CTA chest [CT angio chest] [CT] Stat Cat Scan 03/01/17 19:24 Completed CL Cardiac Catheterization [CL] 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 Cain Discharging clinician: Erlinda Matthews Anticipated date of discharge: 03/03/17 - Patient Status Disposition: Home, Self-Care Condition: Good Functional capacity at discharge: independent ambulation Overall status at discharge: patient is back to baseline - Discharge Instructions Follow Up With: Salbador Madrid DO [Primary Care Provider] - Additional Instructions: Please follow up with your primary care physician within five days after your dishcarge from the hospital. Please follow up with cardiology within one week after your discharge from the hospital. Your home medications have been changed as follows: 1. Aspirin 81mg once a day has been added 2. Brilinta 90mg twice a day has been added 3. Metoprolol 12.5mg once a day has been added 4. Lipitor 40mg once a day has been added 5. Lisinopril dose has been decreased to 5mg once a day 6. Spironolactone 12.5mg once a day has been added Continue the oral antibiotics as prescribed, first dose this evening. Resume all other medications as prescribed by your primary care physician. Do not smoke, nicotine patch prescription is given as per your request. Seek medical help immediately if chest pain occurs or you have difficulty breathing. - Diet and Activity Activity: increase activity as tolerated Diet: low fat, low cholesterol, low salt diet Hospital course: Mr. Bowen is a 51 year old male with past medical history of hypertension, arthritis, and current tobacco abuse who was admitted for management of chest pain. He was found to have multifocal pneumonia for which she was started on IV antibiotics. He was further found to have elevated troponins and was treated for NSTEMI. Cardiology evaluation was requested. Patient was found to have new onset CHF on 2D echo. He underwent left heart catheterization and had 2 drug-eluting stents placed on 03/01/17. Patient was started on aspirin, Brilinta, metoprolol, spironolactone, lisinopril after the procedure. Patient' s hospital course was further complicated by a run of SVT shortly after his PCI. He required 2 doses of adenosine and converted to normal sinus rhythm. He was closely monitored for over 24 hours after this episode, and no recurrent episodes were reported. Cardiology remained on board and closely followed the patient throughout the duration of the hospitalization. Cardiology has signed off on the patient and outpatient follow-up is recommended. At this time patient is saturating well on room air and did not qualify for home oxygen. He is medically stable for discharge. He is requesting nicotine patches prescription upon discharge and states he will not smoke after his discharge. Patient demonstrates understanding of his diagnosis and agrees with the discharge care and plan. - Time Spent with Patient Total time spent providing and/or coordinating discharge services: Greater than 30 minutes - Constitutional Vitals: Temp Pulse Resp BP Pulse Ox 98.3 F 92 18 123/82 95 03/03/17 07:00 03/03/17 11:00 03/03/17 11:00 03/03/17 11:00 03/03/17 12:39 General appearance: Present: cooperative, A&O X 3, pleasant, no acute distress, answers questions appropriately - Head Head exam: Present: atraumatic, normocephalic - Eye Eye exam: Present: normal appearance, conjuntiva pink, sclera anicteric - Respiratory Respiratory exam: Present: CTAB. Absent: accessory muscle use, rales, rhonchi, wheezes - Cardiovascular Cardiovascular exam: Present: RRR, +S1, +S2. Absent: diastolic murmur, gallop, rubs, systolic murmur - GI/Abdominal GI/Abdominal exam: Present: normal bowel sounds, soft, no peritoneal signs. Absent: distended, tenderness - Extremities Exam Extremities exam: Present: warm, radial pulses palpable and symmetrical. Absent : calf tenderness, cyanotic, pedal edema - Neurological Exam Neurological exam: Present: alert, oriented X3 - Psychiatric Psychiatric exam: Present: normal affect, normal mood
--- NOTE | 2017-03-03 18:09 | Electrocardiograph Report ---
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
--- NOTE | 2017-03-07 15:47 | Electrocardiograph Report ---
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
== END 2017-03-03 16:05 | disposition home or self-care (01) | DRG 246 ==
LOC: 3BNU 11:20 → EMEROO 11:20 → 3BNU 14:22 → SUATTDRO 16:28 → ICNU 03-01 20:26 → 2NENU 03-02 15:01
PROVIDERS: ADMIT Nurse Practitioner Family; ATTEND Internal Medicine

== ENCOUNTER 2017-03-03 23:29 | Observation (INO) ==
[2017-03-03 23:55] LABS: Basophils % 0.1 %; Eosinophils % 0.1 %; Immature Granulocytes % 0.6 % (0-4); Lymphocytes # 2.4 K/mcL (0.6-4.6); Lymphocytes % 16.6 %; Mean Corpuscular HGB Conc 32.6 g/dL (31.6-35.5); Mean Corpuscular Hemoglobin 28.2 pg (28.0-33.3); Mean Corpuscular Volume 86.6 fL (83.0-100.0); Mean Platelet Volume 11.5 fL (9.4-12.4); Monocytes # 1.4 K/mcL (0.0-1.3); Monocytes % 9.7 %; Neutrophils # 10.4 K/mcL (1.6-8.9); Platelet Count 310 K/mcL (140-400); Red Blood Count 4.85 M/mcL (4.19-5.50); Red Cell Distribution Width 13.5 % (11.5-14.5); Segmented Neutrophils % 72.9 %
[2017-03-03 23:56] LABS: Hemoglobin 13.7 g/dL (12.9-16.9)
[2017-03-04] LABS: INR 1.4; Prothrombin Time 14.8 Seconds (9.4-12.1)
[2017-03-04 00:05] LABS: Activated Partial Thrombo Time 26.6 Seconds (26.0-36.0)
[2017-03-04 00:14] LABS: BUN/Creatinine Ratio 26 (6-26); Blood Urea Nitrogen 24 mg/dL (6-20); Calcium 9.5 mg/dL (8.6-10.3); Carbon Dioxide 26 mEq/L (23-29); Chloride 102 mEq/L (98-107); Glucose 114 mg/dL (70-105); Osmolality,Calculated 285 (280-300); Potassium 4.8 mEq/L (3.5-5.1); Sodium 135 mEq/L (136-145); eGFR For African Americans > 60 (> 60); eGFR For Non-African Americans > 60 (> 60)
[2017-03-04 00:18] LABS: Albumin 3.3 g/dL (3.5-5.7); Albumin/Globulin Ratio 1.1 (1.1-2.2); Bilirubin,Direct 0.3 mg/dL (0.0-0.2); Bilirubin,Indirect 0.6 mg/dL (0.0-1.2); Bilirubin,Total 0.9 mg/dL (0.3-1.0); Total Protein 6.3 g/dL (6.4-8.9)
--- NOTE | 2017-03-04 00:25 | Emergency Department Note ---
Disposition Clinical Impression: Epigastric abdominal pain, Elevated troponin, Transaminitis Disposition: Admitted As Inpatient Condition: Good Abdominal Pain HPI - General Chief Complaint: ED Chest Pain Stated Complaint: had stents placed Monday,not feeling right Time Seen by Provider: 03/03/17 23:34 Source: patient, family Mode of arrival: private vehicle Limitations: no limitations Nursing Notes Reviewed: Yes Vital Signs Reviewed: Yes - History of Present Illness HPI Narrative: 51-year-old male history of hyperlipidemia, hypertension, CAD with 2 stents placed on 03/01/17 who presents to the ER due to epigastric abdominal pain. Patient states pain began around 9 PM at rest. States it feels like an achy pain. Reports that he was concerned because he recently had heart issues and wanted to be checked out. States this is nothing like the pain he had before which brought him to the hospital at that time. He did undergo left heart catheterization on the and had 2 stents placed. Reports pain is epigastric. Has been belching and having some heartburn for the last couple of days. No fever nausea vomiting or diarrhea. No dysuria. No complaints. Pt Subjective Complaint: abdominal pain Onset (ago): hour(s) Consistency: constant Location: epigastric Pain Severity: moderate Pain Scale: 6 Quality: aching Radiation: none Migration to: no migration Improves with: nothing Worsens with: nothing Associated symptoms: Denies: nausea, vomiting, diarrhea, fever, dysuria Treatments prior to arrival: none - Related Data Home Medications Medication Instructions Recorded Confirmed Albuterol Sulfate [Albuterol 2 puff IH Q6H PRN 02/28/17 02/28/17 Inhaler] Naproxen 500 mg PO BID PRN 02/28/17 02/28/17 Previous Rx's Medication Instructions Recorded Aspirin Enteric Coated [Aspirin EC] 81 mg PO DAILY #30 tablet. 03/03/17 Atorvastatin [Lipitor] 40 mg PO HS #30 tablet 03/03/17 Lisinopril [Zestril] 5 mg PO DAILY #30 tablet 03/03/17 Metoprolol XL (24 HR) Succ [Toprol 12.5 mg PO DAILY #30 tab.er.24h 03/03/17 Xl] Nicotine Patch [Nicoderm] 14 mg TD DAILY #5 patch.td24 03/03/17 Spironolactone [Aldactone] 12.5 mg PO DAILY #30 tablet 03/03/17 Ticagrelor [Brilinta] 90 mg PO BID #60 tablet 03/03/17 levoFLOXacin [Levaquin] 750 mg PO DAILY #4 tablet 03/03/17 Allergies Allergy/AdvReac Type Severity Reaction Status Date / Time Penicillins [PCN] AdvReac See Verified 03/03/17 23:31 Comments All systems ED: reviewed and negative except as stated. Constitutional: Denies: fever Cardiovascular: Denies: chest pain Respiratory: Denies: dyspnea Gastrointestinal: Reports: abdominal pain. Denies: nausea, vomiting, diarrhea Genitourinary: Denies: dysuria, hematuria Abdominal Pain PMH - Past Medical History Medical history: Reports: arthritis, hypertension Male Surgical History: Reports: other Psychiatric history: Reports: no psych history - Social History Smoking status: Current every day smoker Alcohol use: Reports: none Drug use: Reports: none Physical Exam - General Limitations: no limitations General appearance: alert, in no apparent distress - Head Head exam: atraumatic, normocephalic - Eye Eye exam: Present: normal appearance - ENT ENT exam: normal exam - Neck Neck exam: Present: normal inspection, full ROM - Chest Chest inspection: Present: normal inspection, symmetric chest wall rise - Respiratory Respiratory exam: Present: normal lung sounds bilaterally - Cardiovascular Cardiovascular exam: Present: regular rate, normal rhythm, normal heart sounds - Abdominal Exam Abdominal exam: Present: soft, tenderness (Mild epigastric tenderness to palpation without guarding or rigidity) - Extremities Exam Extremities exam: Present: normal inspection, full ROM - Expanded Upper Extremity Exam Shoulder exam: Present: normal inspection, full ROM Arm exam: Present: normal inspection, full ROM Elbow exam: Present: normal inspection, full ROM Forearm/Wrist exam: Present: normal inspection, full ROM Hand exam: Present: normal inspection, full ROM - Expanded Lower Extremity Exam Hip/Pelvis exam: Present: normal inspection, full ROM Upper leg exam: Present: normal inspection, full ROM Knee exam: Present: normal inspection, full ROM Lower leg exam: Present: normal inspection, full ROM Ankle exam: Present: normal inspection, full ROM Foot/toe exam: Present: normal inspection, full ROM - Neurological Exam Neurological exam: Present: alert, other (GCS 15. Nonfocal neurologic exam.) - Psychiatric Psychiatric exam: Present: normal affect, normal mood - Skin Skin exam: Present: warm, dry, intact Course Course Narrative: Patient seen and examined. Vital signs reviewed. His pain is epigastric in nature. We will obtain an EKG, chest x-ray as well as labs including LFTs, lipase, troponin. We will also give him GI cocktail and reassess. - Reevaluation(s) Reevaluation #1: Patient's troponin back at 0.08. We will discuss with cardiology recommendations for heparinization. Reevaluation #2: I discussed the results of imaging and labs with the patient and family as well as cardiology recommendations. Family is comfortable with staying and being admitted. Patient reports he is currently pain-free after the GI cocktail. Patient will be admitted to the hospitalist service for elevated troponin. - Consultations Consultation #1: I discussed this patient with the on-call video and sound recorder Dr. Cain. Discussed the patient's recent hospitalization, EKG, labs and intervention so far. Discussed patient's troponin of 0.08 which is higher than his troponins when he was hospitalized. He is not currently endorsing chest pain and says this is different pain what prompted him to first-come to the ER previously. She does not recommend to heparinize the patient unless his troponin continues to trend upward. We will admit to the hospitalist service. Vital Signs Temperature 97.6 F 03/03/17 23:31 Pulse Rate 106 03/03/17 23:31 Respiratory Rate 20 03/03/17 23:31 Blood Pressure 134/90 03/03/17 23:31 O2 Sat by Pulse Oximetry 97 03/03/17 23:31 Temperature 97.6 F 03/03/17 23:31 Pulse Rate 98 03/04/17 01:51 Respiratory Rate 18 03/04/17 01:51 Blood Pressure 123/91 03/04/17 01:51 O2 Sat by Pulse Oximetry 95 03/04/17 01:51 Oxygen Delivery Oxygen Delivery Room Air Abdominal Pain - MDM Narrative Medical decision making narrative: 51-year-old male presents to the ER due to epigastric abdominal pain. Reports it started around 9 PM. States he has had some belching and heartburn for the last couple of days. He was just discharged placed on Levaquin for multifocal pneumonia. He also underwent a left heart catheterization on the of this month with 2 stents placed. His pain is not similar to his prior admission. His EKG does not show any ischemic features. Chest x-ray shows improving pneumonia. CT scan with anasarca, periportal edema, gallbladder wall thickening and perinephric stranding. Correlating with his labs his LFTs have been elevated prior to his symptoms. Urinalysis does not demonstrate pyelo. I discussed this case with the on-call video and sound recorder given his elevated troponin. Although this is likely postprocedural it is elevated higher than when he was in the hospital. They do not recommend to heparinize him unless his troponin continues to trend upward. Patient given GI cocktail for symptoms with resolution. Admitted to the hospitalist service for elevated troponin. - Lab Data Lab results reviewed: Yes I reviewed the patient's lab results. Result diagrams: 03/03/17 23:43 03/03/17 23:43 Lab Results 03/03/17 03/03/17 03/03/17 Range/Units 23:43 23:43 23:43 WBC (4.3-11.1) K/mcL RBC (4.19-5.50) M/mcL Hgb (12.9-16.9) g/dL Hct (37.5-50.1) % MCV (83.0-100.0) fL MCH (28.0-33.3) pg MCHC (31.6-35.5) g/dL RDW (11.5-14.5) % Plt Count (140-400) K/mcL MPV (9.4-12.4) fL Immature Gran % (0-4) % Seg Neutrophils % % Lymphocytes % % Monocytes % % Eosinophils % % Basophils % % Neutrophils # (1.6-8.9) K/mcL Lymphocytes # (0.6-4.6) K/mcL Monocytes # (0.0-1.3) K/mcL Eosinophils # (0.0-0.6) K/mcL Basophils # (0.0-0.2) K/mcL PT 14.8 H (9.4-12.1) Seconds INR 1.4 APTT 26.6 D (26.0-36.0) Seconds Sodium (136-145) mEq/L Potassium (3.5-5.1) mEq/L Chloride (98-107) mEq/L Carbon Dioxide (23-29) mEq/L BUN (6-20) mg/dL Creatinine (0.70-1.30) mg/dL Est GFR ( Amer) (> 60) Est GFR (Non-Af Amer) (> 60) BUN/Creatinine Ratio (6-26) Glucose (70-105) mg/dL Calculated Osmolality (280-300) Calcium (8.6-10.3) mg/dL Total Bilirubin 0.9 (0.3-1.0) mg/dL Direct Bilirubin 0.3 H (0.0-0.2) mg/dL Indirect Bilirubin 0.6 (0.0-1.2) mg/dL AST 113 H (13-39) Units/L ALT 174 H (7-52) Units/L Alkaline Phosphatase 129 H (34-104) Units/L Troponin I (< 0.04) ng/mL B-Natriuretic Peptide 1402 H (Less than 100) pg/mL Serum Total Protein 6.3 L (6.4-8.9) g/dL Albumin 3.3 L D (3.5-5.7) g/dL Globulin 3.0 (2.4-3.5) g/dL Albumin/Globulin Ratio 1.1 (1.1-2.2) Lipase 62 (11-82) Units/L Urine Color (Yellow) Urine Clarity (Clear) Urine pH (5.0-8.0) pH Units Ur Specific [place] (1.010-1.025) Urine Protein (Neg-Trace) mg/dL Urine Glucose (UA) (Normal) mg/dL Urine Ketones (Negative) mg/dL Urine Blood (Negative) Urine Nitrite (Negative) Urine Bilirubin (Negative) Urine Urobilinogen (Normal) mg/dL Ur Leukocyte Esterase (Negative) Urine Microscopic RBC (0-3) per hpf Urine Microscopic WBC (0-3) per hpf Ur Squamous Epith Cells (None-Few) per lpf Urine Bacteria (None-Few) per hpf Hyaline Casts (None-Few) per lpf Ur Culture Indicated? (NO) 03/03/17 03/03/17 03/03/17 Range/Units 23:43 23:43 23:43 WBC 14.3 H (4.3-11.1) K/mcL RBC 4.85 (4.19-5.50) M/mcL Hgb 13.7 D (12.9-16.9) g/dL Hct 42.0 (37.5-50.1) % MCV 86.6 (83.0-100.0) fL MCH 28.2 (28.0-33.3) pg MCHC 32.6 (31.6-35.5) g/dL RDW 13.5 (11.5-14.5) % Plt Count 310 (140-400) K/mcL MPV 11.5 (9.4-12.4) fL Immature Gran % 0.6 (0-4) % Seg Neutrophils % 72.9 % Lymphocytes % 16.6 % Monocytes % 9.7 % Eosinophils % 0.1 % Basophils % 0.1 % Neutrophils # 10.4 H (1.6-8.9) K/mcL Lymphocytes # 2.4 (0.6-4.6) K/mcL Monocytes # 1.4 H (0.0-1.3) K/mcL Eosinophils # 0.0 (0.0-0.6) K/mcL Basophils # 0.0 (0.0-0.2) K/mcL PT (9.4-12.1) Seconds INR APTT (26.0-36.0) Seconds Sodium 135 L (136-145) mEq/L Potassium 4.8 (3.5-5.1) mEq/L Chloride 102 (98-107) mEq/L Carbon Dioxide 26 (23-29) mEq/L BUN 24 H (6-20) mg/dL Creatinine 0.92 (0.70-1.30) mg/dL Est GFR ( Amer) > 60 (> 60) Est GFR (Non-Af Amer) > 60 (> 60) BUN/Creatinine Ratio 26 (6-26) Glucose 114 H (70-105) mg/dL Calculated Osmolality 285 (280-300) Calcium 9.5 (8.6-10.3) mg/dL Total Bilirubin (0.3-1.0) mg/dL Direct Bilirubin (0.0-0.2) mg/dL Indirect Bilirubin (0.0-1.2) mg/dL AST (13-39) Units/L ALT (7-52) Units/L Alkaline Phosphatase (34-104) Units/L Troponin I 0.08 H* (< 0.04) ng/mL B-Natriuretic Peptide (Less than 100) pg/mL Serum Total Protein (6.4-8.9) g/dL Albumin (3.5-5.7) g/dL Globulin (2.4-3.5) g/dL Albumin/Globulin Ratio (1.1-2.2) Lipase (11-82) Units/L Urine Color (Yellow) Urine Clarity (Clear) Urine pH (5.0-8.0) pH Units Ur Specific [place] (1.010-1.025) Urine Protein (Neg-Trace) mg/dL Urine Glucose (UA) (Normal) mg/dL Urine Ketones (Negative) mg/dL Urine Blood (Negative) Urine Nitrite (Negative) Urine Bilirubin (Negative) Urine Urobilinogen (Normal) mg/dL Ur Leukocyte Esterase (Negative) Urine Microscopic RBC (0-3) per hpf Urine Microscopic WBC (0-3) per hpf Ur Squamous Epith Cells (None-Few) per lpf Urine Bacteria (None-Few) per hpf Hyaline Casts (None-Few) per lpf Ur Culture Indicated? (NO) 03/04/17 Range/Units 00:37 WBC (4.3-11.1) K/mcL RBC (4.19-5.50) M/mcL Hgb (12.9-16.9) g/dL Hct (37.5-50.1) % MCV (83.0-100.0) fL MCH (28.0-33.3) pg MCHC (31.6-35.5) g/dL RDW (11.5-14.5) % Plt Count (140-400) K/mcL MPV (9.4-12.4) fL Immature Gran % (0-4) % Seg Neutrophils % % Lymphocytes % % Monocytes % % Eosinophils % % Basophils % % Neutrophils # (1.6-8.9) K/mcL Lymphocytes # (0.6-4.6) K/mcL Monocytes # (0.0-1.3) K/mcL Eosinophils # (0.0-0.6) K/mcL Basophils # (0.0-0.2) K/mcL PT (9.4-12.1) Seconds INR APTT (26.0-36.0) Seconds Sodium (136-145) mEq/L Potassium (3.5-5.1) mEq/L Chloride (98-107) mEq/L Carbon Dioxide (23-29) mEq/L BUN (6-20) mg/dL Creatinine (0.70-1.30) mg/dL Est GFR ( Amer) (> 60) Est GFR (Non-Af Amer) (> 60) BUN/Creatinine Ratio (6-26) Glucose (70-105) mg/dL Calculated Osmolality (280-300) Calcium (8.6-10.3) mg/dL Total Bilirubin (0.3-1.0) mg/dL Direct Bilirubin (0.0-0.2) mg/dL Indirect Bilirubin (0.0-1.2) mg/dL AST (13-39) Units/L ALT (7-52) Units/L Alkaline Phosphatase (34-104) Units/L Troponin I (< 0.04) ng/mL B-Natriuretic Peptide (Less than 100) pg/mL Serum Total Protein (6.4-8.9) g/dL Albumin (3.5-5.7) g/dL Globulin (2.4-3.5) g/dL Albumin/Globulin Ratio (1.1-2.2) Lipase (11-82) Units/L Urine Color Yellow (Yellow) Urine Clarity Slightly Cloudy A (Clear) Urine pH 6.0 (5.0-8.0) pH Units Ur Specific [place] 1.025 (1.010-1.025) Urine Protein Negative (Neg-Trace) mg/dL Urine Glucose (UA) Normal (Normal) mg/dL Urine Ketones Negative (Negative) mg/dL Urine Blood Negative (Negative) Urine Nitrite Negative (Negative) Urine Bilirubin Negative (Negative) Urine Urobilinogen Normal (Normal) mg/dL Ur Leukocyte Esterase Negative (Negative) Urine Microscopic RBC 0-3 (0-3) per hpf Urine Microscopic WBC 0-3 (0-3) per hpf Ur Squamous Epith Cells Few (None-Few) per lpf Urine Bacteria Few (None-Few) per hpf Hyaline Casts None Seen (None-Few) per lpf Ur Culture Indicated? NO (NO) - Radiology Data Radiology results reviewed: Yes I reviewed the patient's radiology results. Abdomen/Pelvis CT 03/03/17 23:47 IMPRESSION: 1. Focal consolidation noted within the right middle lobe and to a lesser extent within the right lower lobe, compatible with multifocal pneumonia. 2. Periportal edema which is a nonspecific finding, and can relate to localized disease (such as hepatitis) as well systemic disease (such as fluid overload). 3. Marked gallbladder wall thickening, which again not is nonspecific, but correlate with clinical evidence of acalculous cholecystitis. 4. Bilateral perinephric fat stranding. Correlate with any clinical evidence of pyelonephritis. 5. Small amount of free pelvic fluid. 6. Diffuse anasarca. D/ / Niranjan Jernigan MD / Niranjan Jernigan MD Interpreting Provider: Niranjan Jernigan MD Chest X-Ray 03/03/17 23:47 IMPRESSION: Improving middle lobe airspace disease. Otherwise clear lungs. D/ / Jose Cruz Edward MD / Jose Cruz Edward MD Interpreting Provider: Jose Cruz Edward MD - EKG Data EKG attestation: Yes I reviewed and interpreted this EKG. EKG results narrative: EKG demonstrates sinus tachycardia with a rate of 101. Normal axis. Normal intervals. Normal R-wave progression. Nonspecific ST-T wave changes in the inferior leads. No gross ST elevations or depressions. No acute ischemic findings. Previous EKG was SVT so is unreliable for comparison. S.B.AIvette - Manda.Courtney.Malathi Situation: Demographics, MOA Background: Presenting Complaint, Relevant PMH, Meds, & Allergies Assessment: Vital Signs, Course and respsone to treatment, Exam Concerns, Patient/Family Expectation, Pertinant Lab Results Recommendation: Barrier(s) to disposition, Recommendation based on pending studies, treatments, or consults S.B.A.Domenico Report Given to: Dr. Noris Guy Repor Time: 01:43 (requests to order 06:00 troponin) Attestation Statement - Attestation Attestation: I, Bryan Plascencia MD, personally evaluated this patient and discussed their management with the resident physician. I reviewed the resident's note and agree with the documented findings, medical decision making, and plan of care. 51-year-old male presents to the emergency department with a complaint of epigastric pressure and discomfort which started about 9 PM this evening. He denies any actual chest pain. He also complains of shortness of breath since onset of the epigastric pain. Patient was just here 2 days ago with chest pain and had an elevated troponin. He had a cardiac catheterization and coronary artery stents. He rates this discomfort tonight is different from what he had 2 days ago. On examination patient is a well-developed well-nourished male in no acute distress. He is alert and oriented 3. There is no cyanosis or diaphoresis. Chest is nontender to palpation. Breath sounds are clear and equal bilaterally. Heart regular rate and rhythm. Abdomen soft with normal bowel sounds. There is mild upper mid epigastric tenderness. Labs reviewed. Troponin 0.08. BNP 1402. Chest x-ray shows improving right middle lobe airspace disease. CT of the abdomen and pelvis obtained and results reviewed with multiple findings. EKG shows a sinus tachycardia. No acute ischemic changes. Dr. Mccrary discussed the case with the video and sound recorder on-call, Dr. Cain, and she did not recommend heparinization at this time. The hospitalist, Dr. Hamm, was consulted and accepted admission of the patient.
[2017-03-04] MEDS ORDERED: GI Cocktail 40 ML EACH PO ONE (00:28)
[2017-03-04 00:54] LABS: Bilirubin,Urine Negative (Negative); Blood,Urine Negative (Negative); Clarity,Urine Slightly Cloudy (Clear); Color,Urine Yellow (Yellow); Glucose,Urine (UA) Normal (Normal); Ketones,Urine Negative (Negative); Leukocyte Esterase,Urine Negative (Negative); Nitrite,Urine Negative (Negative); Protein,Urine Negative (Neg-Trace); Specific Gravity,Urine 1.025 (1.010-1.025); Urobilinogen,Urine Normal (Normal)
[2017-03-04 01:05] LABS: Bacteria,Urine Few per hpf (None-Few); Hyaline Casts,Urine None Seen per lpf (None-Few); RBC,Urine 0-3 per hpf (0-3); Squamous Epithelial Cell,Urine Few per lpf (None-Few); WBC,Urine 0-3 per hpf (0-3)
[2017-03-04] MEDS ORDERED: Naloxone 0.4 MG/ML INJ IVP PRN (04:25)
--- NOTE | 2017-03-04 05:00 | Internal Med History&Physical ---
Date of Encounter: 03/04/17 Time of Encounter: 03:00 Assessment and Plan (1) CHF (congestive heart failure) Current visit: Yes Status: Acute Patient has history of CHF with LVEF 25%. Appears euvolemic at this point. Continue beta arnulfo and ERICA inhibitor Qualifiers: Congestive heart failure type: systolic Congestive heart failure chronicity : chronic Qualified Code(s): I50.22 - Chronic systolic (congestive) heart failure (2) CAP (community acquired pneumonia) Current visit: No Status: Acute Continue by mouth Levaquin to finish the antibiotic course. Chest x-ray shows improved infiltrates. Qualifiers: Laterality: right Lung location: lower lobe of lung Qualified Code(s): J18.1 - Lobar pneumonia, unspecified organism (3) HTN (hypertension) Current visit: No Status: Chronic Continue home medications Qualifiers: Hypertension type: essential hypertension Qualified Code(s): I10 - Essential (primary) hypertension (4) Tobacco abuse Current visit: No Status: Chronic Smoking cessation education. On nicotine patch (5) DVT prophylaxis Current visit: No Status: Acute Heparin subcutaneously (6) Epigastric abdominal pain Current visit: Yes Status: Acute (7) Elevated troponin Current visit: Yes Status: Acute Mild elevated troponin. Epigastric pain resolved after GI cocktail, probably due to reflex. We will check 3 sets of troponin. Cardiology consult since patient has recent stent. (8) Transaminitis Current visit: Yes Status: Acute Etiology is undetermined. Liver enzyme level is trending down. Hepatitis panel placed by ER doctor. Closely follow-up liver function (9) CAD (coronary artery disease) Current visit: Yes Status: Acute S/P stent. Continue DAPT, beta arnulfo, and statin Qualifiers: Coronary Disease-Associated Artery/Lesion type: [place] artery [place] vs. transplanted heart: [place] heart Associated angina: without angina Qualified Code(s): I25.10 - Atherosclerotic heart disease of [place] coronary artery without angina pectoris Internal Medicine - H&P: HPI Chief complaint: Epigastric area pain Admitted From: Home Plans for Post Hospital Care: Home History of present illness: Mr. Bowen is a 51 year old male with history of CAD S/P stent on 03/01/17, CHF , hypertension, presented to ER for epigastric area pain. Patient said that the pain is like ache, started from around 9 to 9:30 PM. Pain is rated 5-6 out of 10. Patient has mild shortness of breath. No nausea, no diaphoresis. Patient has no fever. Patient has recent diagnosed pneumonia still on by mouth Levaquin. He still has mild cough. Patient's epigastric pain has resolved after GI cocktail in the emergency room. He has a mild elevated troponin, with concern of his recent catheterization, patient was admitted for further monitoring. Past Med Surg Social Fam HX - Past Medical History Medical history: arthritis, hyperlipidemia, hypertension Psychiatric history: no psych history - Past Surgical History Surgical History: other - Social History Smoking Status: Current every day smoker Smokeless Tobacco Status: No Alcohol use: none Drug use: none - Family History Mother Family Member Ethnicity: Non- Living Status: Hx Family Cardiac Disorders: Yes Hx Family Neurologic Disorders: Yes (Alzheimer's disease) Father Family Member Ethnicity: Non- Living Status: Still Living Brother Family Member Ethnicity: Non- Living Status: Still Living Hx Family Cardiac Disorders: Yes ([place], Cardiac ablation x2, HTN, HLD) Hx Family Endocrine Disorder: Yes (DM) Sister Family Member Ethnicity: Non- Living Status: Still Living Internal Medicine - H&P: Meds Albuterol Sulfate [Albuterol Inhaler] 2 puff IH Q6H PRN 02/28/17 [History] Naproxen 500 mg PO BID PRN 02/28/17 [History] Aspirin Enteric Coated [Aspirin EC] 81 mg PO DAILY #30 tablet.dr 03/03/17 [Rx] Atorvastatin [Lipitor] 40 mg PO HS #30 tablet 03/03/17 [Rx] Lisinopril [Zestril] 5 mg PO DAILY #30 tablet 03/03/17 [Rx] Metoprolol XL (24 HR) Succ [Toprol Xl] 12.5 mg PO DAILY #30 tab.er.24h 03/03/17 [Rx] Nicotine Patch [Nicoderm] 14 mg TD DAILY #5 patch.td24 03/03/17 [Rx] Spironolactone [Aldactone] 12.5 mg PO DAILY #30 tablet 03/03/17 [Rx] Ticagrelor [Brilinta] 90 mg PO BID #60 tablet 03/03/17 [Rx] levoFLOXacin [Levaquin] 750 mg PO DAILY #4 tablet 03/03/17 [Rx] 3 Allergy/AdvReac Type Severity Reaction Status Date / Time Penicillins [PCN] AdvReac See Verified 03/03/17 23:31 Comments All Systems PM: A 10-system review of systems was performed and is negative for pertinent findings except as documented above in the HPI. - Constitutional Vitals: Temp Pulse Resp BP Pulse Ox 97.7 F 101 18 132/99 98 03/04/17 04:15 03/04/17 04:15 03/04/17 04:15 03/04/17 03:55 03/04/17 04:15 General appearance: Present: A&O X 3, no acute distress, answers questions appropriately - Head Head exam: Present: atraumatic, normocephalic - Eye Eye exam: Present: PERRL, conjuntiva pink, sclera anicteric Pupils: Present: PERRL - Neck Neck exam general surgery: Present: supple, trachea midline. Absent: lymphadenopathy - Respiratory Respiratory exam: Present: CTAB. Absent: accessory muscle use, rales, rhonchi, wheezes - Cardiovascular Cardiovascular exam: Present: RRR, +S1, +S2. Absent: diastolic murmur, gallop, rubs, systolic murmur - GI/Abdominal GI/Abdominal exam: Present: normal bowel sounds, soft, no peritoneal signs. Absent: distended, tenderness - Extremities Exam Extremities exam: Present: warm, radial pulses palpable and symmetrical. Absent : calf tenderness, cyanotic, pedal edema - Neurological Exam Neurological exam: Present: CN II-XII intact, oriented X3, no focal deficits. Absent: pronater drift, facial droop, speech deficit - Skin Skin exam: Present: dry, intact Internal Med - H&P Results - Labs CBC & Chem 7: 03/03/17 23:43 03/03/17 23:43 - EKG Data -: EKG Interpreted by Myself EKG shows normal: sinus rhythm Rate: normal
[2017-03-04] MEDS ORDERED: *HR* Heparin 5,000 UNIT/ML VIAL SQ SCH (06:00)
[2017-03-04] MEDS ORDERED: Nicotine 14 MG PATCH.TD24 TD SCH (09:00)
[2017-03-04] MEDS ORDERED: levoFLOXacin 750 MG TABLET PO SCH (09:00)
[2017-03-04] MEDS ORDERED: *HR* Ticagrelor 90 MG TABLET PO SCH (09:00)
[2017-03-04] MEDS ORDERED: Spironolactone 25 MG TABLET PO SCH (09:00)
[2017-03-04] MEDS ORDERED: Aspirin Enteric Coated 81 MG Tablet PO SCH (09:00)
[2017-03-04] MEDS ORDERED: Metoprolol XL (24 HR) Succ 25 MG TAB.ER.24H PO SCH (09:00)
[2017-03-04 09:47] LABS: Basophils % 0.1 %; Hemoglobin 13.3 g/dL (12.9-16.9); Immature Granulocytes % 0.4 % (0-4); Lymphocytes % 13.2 %; Mean Corpuscular HGB Conc 34.1 g/dL (31.6-35.5); Mean Corpuscular Hemoglobin 28.7 pg (28.0-33.3); Mean Corpuscular Volume 84.2 fL (83.0-100.0); Mean Platelet Volume 11.7 fL (9.4-12.4); Monocytes # 1.3 K/mcL (0.0-1.3); Monocytes % 8.7 %; Neutrophils # 11.6 K/mcL (1.6-8.9); Platelet Count 324 K/mcL (140-400); Red Blood Count 4.63 M/mcL (4.19-5.50); Red Cell Distribution Width 13.3 % (11.5-14.5); Segmented Neutrophils % 77.6 %
[2017-03-04 10:03] LABS: BUN/Creatinine Ratio 29 (6-26); Blood Urea Nitrogen 24 mg/dL (6-20); Calcium 9.3 mg/dL (8.6-10.3); Carbon Dioxide 20 mEq/L (23-29); Chloride 102 mEq/L (98-107); Glucose 125 mg/dL (70-105); Osmolality,Calculated 278 (280-300); Potassium 4.8 mEq/L (3.5-5.1); Sodium 131 mEq/L (136-145); eGFR For African Americans > 60 (> 60); eGFR For Non-African Americans > 60 (> 60)
--- NOTE | 2017-03-04 11:01 | Cardiology Consult Note ---
Date of Encounter: 03/04/17 Time of Encounter: 08:30 Assessment and Plan (1) Epigastric abdominal pain Current Visit: Yes Status: Acute Patient presents with epigastric pain unlike symptoms that initially brought him in prior to PCI. Troponins are flat and not diagnostic of ACS. ECG does not demonstrate new ischemic findings. His symptoms have since resolved. Overall, symptoms do not appear consistent with ACS. Also noted are increased LFTs which have not increased with the addition of statin. However, it may be reasonable to stop the statin at this time. Consider liver US. If GI is available over the weekend, may consider a consultation. Denies use of alcohol. Would also be reasonable to start a PPI. Recommend stopping naproxen. (2) CAD (coronary artery disease) Current Visit: Yes Status: Acute Recent PCI to OM1, mRCA and dRCA. Patient's presentation does not represent ACS. Recommend continuing DAPT. Will stop statin given elevated LFTs and new presentation of epigastric discomfort. Qualifiers: Coronary Disease-Associated Artery/Lesion type: [place] artery [place] vs. transplanted heart: [place] heart Associated angina: without angina Qualified Code(s): I25.10 - Atherosclerotic heart disease of [place] coronary artery without angina pectoris (3) Heart failure Current Visit: No Status: Acute Mr. Bowen presented last visit initially with new findings of reduced LV systolic dysfunction. He appears euvolemic on exam. Continue BB, spironolactone, ACEI. Will uptitrate Toprol. Qualifiers: Qualified Code(s): I50.9 - Heart failure, unspecified Discussion w patient/family: The assessment and plan as outlined above was discussed with the patient and/or family members who expressed understanding and agreement. All questions were answered. Thank you for involving us in the care of your patient. We will sign off. Please call with any questions. Recommend outpatient follow up. History of Present Illness Consult date: 03/04/17 Requesting physician: Charles Mccrary Consult reason: Elevated Troponin Chief complaint: mid epigastric pain History of present illness: Mr. Bowen is a 51 year old male recently discharged after undergoing LHC and PCI who presented to the ER with mid epigastric pain and heartburn symptoms. ECG reviewed demonstrated no new ischemic findings. He denies symptoms similar to what he had before PCI. Troponin 0.08, 0.08 (previously 0.06, 0.06, 0.05). At the bedside, patient denies further pain - states it did resolve. Past Med Surg Social Fam HX - Past Medical History Medical history: arthritis, CHF, coronary artery disease, hyperlipidemia, hypertension Psychiatric history: no psych history - Past Surgical History Surgical History: other - Social History Smoking Status: Current every day smoker Smokeless Tobacco Status: No Alcohol use: none Drug use: none - Family History Mother Family Member Ethnicity: Non- Living Status: Hx Family Cardiac Disorders: Yes Hx Family Neurologic Disorders: Yes (Alzheimer's disease) Father Family Member Ethnicity: Non- Living Status: Still Living Brother Family Member Ethnicity: Non- Living Status: Still Living Hx Family Cardiac Disorders: Yes (CT, Cardiac ablation x2, HTN, HLD) Hx Family Endocrine Disorder: Yes (DM) Sister Family Member Ethnicity: Non- Living Status: Still Living Medications and Allergies Albuterol Sulfate [Albuterol Inhaler] 2 puff IH Q6H PRN 02/28/17 [History] Naproxen 500 mg PO BID PRN 02/28/17 [History] Aspirin Enteric Coated [Aspirin EC] 81 mg PO DAILY #30 tablet.dr 03/03/17 [Rx] Atorvastatin [Lipitor] 40 mg PO HS #30 tablet 03/03/17 [Rx] Lisinopril [Zestril] 5 mg PO DAILY #30 tablet 03/03/17 [Rx] Metoprolol XL (24 HR) Succ [Toprol Xl] 12.5 mg PO DAILY #30 tab.er.24h 03/03/17 [Rx] Nicotine Patch [Nicoderm] 14 mg TD DAILY #5 patch.td24 03/03/17 [Rx] Spironolactone [Aldactone] 12.5 mg PO DAILY #30 tablet 03/03/17 [Rx] Ticagrelor [Brilinta] 90 mg PO BID #60 tablet 03/03/17 [Rx] levoFLOXacin [Levaquin] 750 mg PO DAILY #4 tablet 03/03/17 [Rx] 3 Allergy/AdvReac Type Severity Reaction Status Date / Time Penicillins [PCN] AdvReac See Verified 03/03/17 23:31 Comments All Systems Review: A 10-system review of systems was performed and is negative for pertinent findings except as documented above in the HPI. - Cardiovascular Cardiovascular: as per HPI Physical Examination Vital Signs, Last 4 Hours Temp Pulse Resp BP Pulse Ox 03/04/17 07:47 97.8 F 103 14 146/109 98 General: Conversant, No Apparent Distress HEENT: Atraumatic, Mucus Membranes Moist Neck: No JVD, Normal carotid pulses Cardiac: Reg Rate and Rhythm, Normal S1 and S2, No Murmur Lungs: Normal Breath Sounds, No Wheeze, Rales, Rhonchi Neuro: Alert and responsive, No focal deficits noted Abdomen: Soft, Non-Tender, Other (normal bowel sounds) Extremities: No Edema Results 03/04/17 09:25 03/04/17 09:25 Lab Results 03/04/17 03/04/17 03/04/17 05:40 09:25 09:25 WBC 14.9 H Hgb 13.3 Hct 39.0 Plt Count 324 Sodium 131 L Potassium 4.8 Chloride 102 Carbon Dioxide 20 L BUN 24 H Creatinine 0.82 Glucose 125 H Calcium 9.3 Troponin I 0.08 H* Elevated LFTs - EKG Interpretation EKG results cardiology: personally reviewed (No new ischemic findings) Consult Discharge Plan - Plan Instructions: Myocardial Infarction (DC), Heart Failure (DC), Chest Pain (DC), Sepsis (DC), Chronic Hypertension (DC), Pneumonia (DC), Cigarette Smoking and Your Health, Legal Financial Specialist (GEN)
[2017-03-04 11:16] VITALS: BP 140/103
--- NOTE | 2017-03-04 14:10 | Discharge Summary ---
Date of Encounter: 03/04/17 Time of Encounter: 11:00 - Discharge Diagnosis (1) Chest pain Priority: Primary Status: Acute Qualifiers: Chest pain type: other chest pain Qualified Code(s): R07.89 - Other chest pain; R07.8 - Other chest pain (2) Elevated transaminase level Priority: Secondary Status: Acute (3) CAP (community acquired pneumonia) Priority: Secondary Status: Acute Qualifiers: Laterality: right Lung location: lower lobe of lung Qualified Code(s): J18.1 - Lobar pneumonia, unspecified organism (4) HTN (hypertension) Priority: Secondary Status: Chronic Qualifiers: Hypertension type: essential hypertension Qualified Code(s): I10 - Essential (primary) hypertension - Discharge Medications Prescriptions: Albuterol Sulfate [Albuterol Inhaler] 2 puff IH Q6H PRN #1 inhaler PRN Reason: Dyspnea Metoprolol XL (24 HR) Succ [Toprol Xl] 25 mg PO DAILY #30 tab.er.24h Omeprazole [PriLOSEC] 40 mg PO DAILY@0630 #30 capsule. Home Medications: Aspirin Enteric Coated [Aspirin EC] 81 mg PO DAILY #30 tablet. 03/03/17 [Rx] Lisinopril [Zestril] 5 mg PO DAILY #30 tablet 03/03/17 [Rx] Nicotine Patch [Nicoderm] 14 mg TD DAILY #5 patch.td24 03/03/17 [Rx] Spironolactone [Aldactone] 12.5 mg PO DAILY #30 tablet 03/03/17 [Rx] Ticagrelor [Brilinta] 90 mg PO BID #60 tablet 03/03/17 [Rx] levoFLOXacin [Levaquin] 750 mg PO DAILY #4 tablet 03/03/17 [Rx] Albuterol Sulfate [Albuterol Inhaler] 2 puff IH Q6H PRN #1 inhaler 03/04/17 [Rx] Metoprolol XL (24 HR) Succ [Toprol Xl] 25 mg PO DAILY #30 tab.er.24h 03/04/17 [ Rx] Omeprazole [PriLOSEC] 40 mg PO DAILY@0630 #30 capsule. 03/04/17 [Rx] Allergies/Adverse Reactions: 3 Allergy/AdvReac Type Severity Reaction Status Date / Time Penicillins [PCN] AdvReac See Verified 03/03/17 23:31 Comments Date of admission: 03/04/17 01:48 Primary care physician: Salbador Madrid DO - Patient Status Disposition: Home, Self-Care Condition: Good - Discharge Instructions Instructions: Myocardial Infarction (DC), Heart Failure (DC), Chest Pain (DC), Sepsis (DC), Chronic Hypertension (DC), Pneumonia (DC), Cigarette Smoking and Your Health, Industrial Sales Engineer (GEN) Follow Up With: Ben Andrade MD [Partnered Physician] - (call the office next week to make a follow up appointment. ) Salbador Madrid DO [Primary Care Provider] - Hospital course: Patient is a 51-year-old male with a past medical history significant for CAD S/ P stent on 03/01/17, CHF and hypertension who presented to ER on 03/04/17 for epigastric area pain. Patient characterized the pain as an ache with a severity of 5-6/10 which started approximately 9:00 pm the evening prior to admission. He also reported associated symptoms of shortness of breath. Patient had been treated for community acquired pneumonia with Levaquin. In the ER, patients epigastric discomfort resolved with GI cocktail. Due to patients significant coronary arterial disease history, he was admitted to medical surgical floor for further evaluation and ACS rule out. During patients hospital stay, cardiology was consulted and suspected that epigastric discomfort secondary to GI and ACS was ruled out. Recommendations for patient to start PPI and to follow-up as outpatient. Patients Toprol dose was also increased per cardiology recommendations. Patient was also noted to have elevated transaminases so will have patient discontinue statin and follow up with primary care provider as an outpatient. - Time Spent with Patient Total time spent providing and/or coordinating discharge services: Less than 30 minutes - Constitutional Vitals: Temp Pulse Resp BP Pulse Ox 97.8 F 103 14 140/103 98 03/04/17 11:14 03/04/17 11:14 03/04/17 11:14 03/04/17 11:14 03/04/17 11:14 General appearance: Present: A&O X 3, no acute distress, answers questions appropriately - Respiratory Respiratory exam: Present: CTAB. Absent: accessory muscle use, rales, rhonchi, wheezes - Cardiovascular Cardiovascular exam: Present: RRR, +S1, +S2. Absent: diastolic murmur, gallop, rubs, systolic murmur - GI/Abdominal GI/Abdominal exam: Present: normal bowel sounds, soft, no peritoneal signs. Absent: distended, tenderness
[2017-03-05] MEDS ORDERED: Metoprolol XL (24 HR) Succ 25 MG TAB.ER.24H PO SCH (09:00)
[2017-03-06 08:44] LABS: Hepatitis A Antibody IgM Nonreactive (Nonreactive); Hepatitis B Core IgM Nonreactive (Nonreactive); Hepatitis B Surface Antigen Nonreactive (Nonreactive); Hepatitis C Virus Antibody Nonreactive (Nonreactive)
== END 2017-03-04 17:56 | disposition home or self-care (01) ==
LOC: EMEROO 23:29 → 2NENU 23:29
PROVIDERS: ADMIT Internal Medicine; ATTEND Hospitalist

== ENCOUNTER 2017-08-04 12:56 | Inpatient (IN) ==
[2017-08-04] MEDS ORDERED: 0.9 % Sodium Chloride 500 ML IVC ONE (13:18)
[2017-08-04 13:43] LABS: Hemoglobin 13.7 g/dL (12.9-16.9); Mean Corpuscular HGB Conc 35.1 g/dL (31.6-35.5); Mean Corpuscular Hemoglobin 29.9 pg (28.0-33.3); Mean Corpuscular Volume 85.2 fL (83.0-100.0); Mean Platelet Volume 11.4 fL (9.4-12.4); Platelet Count 203 K/mcL (140-400); Red Blood Count 4.58 M/mcL (4.19-5.50); Red Cell Distribution Width 14.2 % (11.5-14.5); Segmented Neutrophils % 72.4 %
[2017-08-04 13:44] LABS: Basophils # 0.1 K/mcL (0.0-0.2); Basophils % 0.3 %; Eosinophils # 0.1 K/mcL (0.0-0.6); Eosinophils % 0.5 %; Immature Granulocytes % 0.6 % (0-4); Lymphocytes # 2.4 K/mcL (0.6-4.6); Lymphocytes % 15.8 %; Monocytes # 1.6 K/mcL (0.0-1.3); Monocytes % 10.4 %; Neutrophils # 11.2 K/mcL (1.6-8.9)
--- NOTE | 2017-08-04 13:49 | Emergency Department Note ---
Disposition Clinical Impression: Cellulitis Qualifiers: Site of cellulitis: extremity Site of cellulitis of extremity: upper extremity Laterality: left Qualified Code(s): L03.114 - Cellulitis of left upper limb Disposition: Admitted As Inpatient Condition: Good Referrals: Salbador Madrid DO [Primary Care Provider] - Forms: ED Satisfaction Letter, Work/School Release Time of Disposition: 15:20 General Adult HPI - General Chief complaint: ED General Medical Stated complaint: L hand swelling, Pacemaker placed 08/01 Time Seen by Provider: 08/04/17 12:59 Source: patient Mode of arrival: ambulatory Limitations: no limitations Nursing Notes Reviewed: Yes Vital Signs Reviewed: Yes - History of Present Illness HPI Narrative: Patient presents emergency room for evaluation of left hand swelling. Patient did receive a catheterization and pacemaker placement within the last 3 days. Since then he said his arm wrestling. Today trichilemmal the sling as he was advised and noticing. Redness swelling and irritation to his extremity. Patient was concerned about possible infection or issue with the extremity. Is also concerned about possible blood clot. No other acute issues or concerns noted this time. Onset (ago): day(s) Location: left, upper extremity Radiation: non-radiation Pain Severity: moderate Pain Scale: 5 Quality: burning, aching Consistency: constant Improves with: nothing Worsens with: movement Treatments Prior to Arrival: none - Related Data Home Medications Medication Instructions Recorded Confirmed Allopurinol [Zyloprim 100 MG] 100 mg PO DAILY 08/01/17 08/04/17 Digoxin [Lanoxin] 0.125 mg PO DAILY 08/01/17 08/04/17 Metoprolol XL (24 HR) Succ [Toprol 12.5 mg PO DAILY 08/01/17 08/04/17 Xl] Omeprazole [PriLOSEC] 20 mg PO DAILY 08/01/17 08/04/17 Sacubitril/Valsartan [Entresto 97 1 each PO BID 08/01/17 08/04/17 mg-103 mg Tablet] Previous Rx's Medication Instructions Recorded Aspirin Enteric Coated [Aspirin EC] 81 mg PO DAILY #30 tablet. 03/03/17 Spironolactone [Aldactone] 12.5 mg PO DAILY #30 tablet 03/03/17 Ticagrelor [Brilinta] 90 mg PO BID #60 tablet 03/03/17 Allergies Allergy/AdvReac Type Severity Reaction Status Date / Time Penicillins [PCN] AdvReac See Verified 03/26/17 11:00 Comments All systems ED: reviewed and negative except as stated. Review of Systems: As Per HPI Constitutional: Denies: fever, chills, weakness Cardiovascular: Reports: chest pain. Denies: palpitations, dyspnea on exertion , orthopnea, edema Respiratory: Denies: cough, dyspnea, wheezes Gastrointestinal: Denies: abdominal pain, nausea, vomiting, diarrhea, constipation Genitourinary: Denies: urgency, dysuria, frequency Musculoskeletal: Denies: back pain, neck pain Integumentary: Denies: rash Neurological: Denies: headache Past Medical History - Past Medical History Attestation: Yes The following information was validated with the patient. Source: patient Medical history: Reports: cardiomyopathy, coronary artery disease, hypertension Surgical history: Reports: angioplasty/stent Psychiatric history: Reports: no psych history - Social History Smoking Status: Former smoker Smokeless Tobacco Status: No Alcohol use: Reports: none Drug use: Reports: none Physical Exam - General Limitations: no limitations General appearance: alert - Head Head exam: atraumatic, normocephalic, normal inspection - ENT ENT exam: normal exam, normal oropharynx, mucous membranes moist - Neck Neck exam: Present: normal inspection, full ROM, trachea midline - Chest Chest inspection: Present: normal inspection, symmetric chest wall rise - Respiratory Respiratory exam: Present: normal lung sounds bilaterally. Absent: respiratory distress, accessory muscle use - Cardiovascular Cardiovascular exam: Present: normal rhythm, tachycardia, normal heart sounds - Extremities Exam Extremities exam: Present: full ROM, tenderness, normal capillary refill. Absent: pedal edema, joint swelling - Back Exam Back exam: Present: normal inspection, full ROM. Absent: tenderness - Neurological Exam Neurological exam: Present: alert, oriented X3, CN II-XII intact, normal gait - Skin Skin exam: Present: warm, dry, intact, normal color Course Course Narrative: Patient seen and examined the time of arrival. See history of present illness. Well-appearing 51-year-old gentleman presents emergency room for evaluation of left upper extremity swelling. Patient had pacemaker placed in left anterior chest wall for cardiac arrhythmia. He does have a pacemaker defibrillator. The pacemaker site appears to be stable there is swelling but there is no purulent redness or warmth noted. There is dried blood across the surgical site but still appears to be intact. There is no tenderness to palpation away from the pacemaker site in the left shoulder. Patient has full range of motion the shoulder. There is no tenderness to palpation of the shoulder this time. There is no involvement of the left humerus or elbow. Patient does start to notice some distinct warmth redness and swelling to left upper extremity distal to the mid forearm. The hand does have swelling to it redness and warmth and does have pain with flexion extension of the fingers. Patient also notes pain with flexion extension of the wrist. There is no crepitus or deformity noted at this time. Patient denies any chest pain shortness of breath headache vision changes nausea vomiting or diarrhea. Denies any fevers or chills. Patient has otherwise been doing well since the procedure. Currently not on any antibiotics. Patient is taking his anticoagulation medication as he is prescribed. He called the office this morning and they recommended he come to the emergency room for evaluation of possible blood clot. Patient does disclose that he has a history of gout. Patient's arm is red and warm. Based on presentation patient has good radial pulses are symmetric bilaterally that are palpable by myself. Patient does have capillary refill is less than 2 seconds in all 5 fingers of the affected hand. Low clinical suspicion initially for deep venous thrombosis or arterial occlusion causing symptoms. Patient's presentation is most consistent with either cellulitis versus a gout exacerbation. Patient will be addressed for the potential vascular related issues that could be causing the symptoms this time with Doppler study. Chest x-ray EKG labs including CBC chemistry and troponin will be added on all blood cultures. Fluids pain medication and antibiotic regimen will be started at this time covering for infectious etiology. Disposition to be determined once full workup and treatment course are established - Reevaluation(s) Reevaluation #1: Patient's ultrasound was negative the left upper extremity. No acute signs of DVT. Patient does have a stable uric acid that does not appear to be elevated at this time. Symptoms and presentation are most consistent with a cellulitis. There is no vascular insufficiency to the extremity at this time. Patient was started on antibiotics at this point. Hospitalist Dr. Puga and I reviewed the case and she has no other recommendations. Cardiology will be contacted to let them know that the patient is in the hospital. Otherwise the patient is currently stable. Patient is showing elevated white blood cell count. He was initially tachycardic but does not have a fever. Patient technically meet SIRS criteria despite the fact that he does not appear to be toxic or ill. Blood pressure is maintained in an stable. Lactic acid was negative. Patient does not meet any of the criteria for septic shock will be provided with fluids and antibiotics here. Time: 15:16 Vital Signs Temperature 98 F 08/04/17 12:56 Pulse Rate 101 08/04/17 12:56 Respiratory Rate 18 08/04/17 12:56 Blood Pressure 121/81 08/04/17 12:56 O2 Sat by Pulse Oximetry 97 08/04/17 12:56 Temperature 98 F 08/04/17 13:07 Pulse Rate 101 08/04/17 13:07 Respiratory Rate 18 08/04/17 13:07 Blood Pressure 121/81 08/04/17 13:07 O2 Sat by Pulse Oximetry 97 08/04/17 13:07 Oxygen Delivery Oxygen Delivery Room Air Medical Decision Making - MDM Narrative Medical decision making narrative: Right hand swelling, post pacemaker placement - Medical Records Medical records reviewed: Yes I reviewed the patient's medical records. - Lab Data Lab results reviewed: Yes I reviewed the patient's lab results. Result diagrams: 08/04/17 13:31 08/04/17 13:31 Lab Results 08/04/17 08/04/17 08/04/17 Range/Units 13:31 13:31 13:31 WBC (4.3-11.1) K/mcL RBC (4.19-5.50) M/mcL Hgb (12.9-16.9) g/dL Hct (37.5-50.1) % MCV (83.0-100.0) fL MCH (28.0-33.3) pg MCHC (31.6-35.5) g/dL RDW (11.5-14.5) % Plt Count (140-400) K/mcL MPV (9.4-12.4) fL Immature Gran % (0-4) % Seg Neutrophils % % Lymphocytes % % Monocytes % % Eosinophils % % Basophils % % Neutrophils # (1.6-8.9) K/mcL Lymphocytes # (0.6-4.6) K/mcL Monocytes # (0.0-1.3) K/mcL Eosinophils # (0.0-0.6) K/mcL Basophils # (0.0-0.2) K/mcL PT 12.5 H (9.4-12.1) Seconds INR 1.2 APTT 32.5 (26.0-36.0) Seconds Sodium (136-145) mEq/L Potassium (3.5-5.1) mEq/L Chloride (98-107) mEq/L Carbon Dioxide (23-29) mEq/L BUN (6-20) mg/dL Creatinine (0.70-1.30) mg/dL Est GFR ( Amer) (> 60) Est GFR (Non-Af Amer) (> 60) BUN/Creatinine Ratio (6-26) Glucose (70-105) mg/dL Calculated Osmolality (280-300) Lactic Acid 1.1 (0.5-2.2) mmol/L Uric Acid 5.9 (2.3-7.6) mg/dL Calcium (8.6-10.3) mg/dL Troponin I (< 0.04) ng/mL 08/04/17 08/04/17 Range/Units 13:31 13:31 WBC 15.5 H (4.3-11.1) K/mcL RBC 4.58 (4.19-5.50) M/mcL Hgb 13.7 (12.9-16.9) g/dL Hct 39.0 (37.5-50.1) % MCV 85.2 (83.0-100.0) fL MCH 29.9 (28.0-33.3) pg MCHC 35.1 (31.6-35.5) g/dL RDW 14.2 (11.5-14.5) % Plt Count 203 (140-400) K/mcL MPV 11.4 (9.4-12.4) fL Immature Gran % 0.6 (0-4) % Seg Neutrophils % 72.4 % Lymphocytes % 15.8 % Monocytes % 10.4 % Eosinophils % 0.5 % Basophils % 0.3 % Neutrophils # 11.2 H (1.6-8.9) K/mcL Lymphocytes # 2.4 (0.6-4.6) K/mcL Monocytes # 1.6 H (0.0-1.3) K/mcL Eosinophils # 0.1 (0.0-0.6) K/mcL Basophils # 0.1 (0.0-0.2) K/mcL PT (9.4-12.1) Seconds INR APTT (26.0-36.0) Seconds Sodium 132 L (136-145) mEq/L Potassium 4.3 (3.5-5.1) mEq/L Chloride 101 (98-107) mEq/L Carbon Dioxide 24 (23-29) mEq/L BUN 13 (6-20) mg/dL Creatinine 0.70 (0.70-1.30) mg/dL Est GFR ( Amer) > 60 (> 60) Est GFR (Non-Af Amer) > 60 (> 60) BUN/Creatinine Ratio 19 (6-26) Glucose 130 H (70-105) mg/dL Calculated Osmolality 276 L (280-300) Lactic Acid (0.5-2.2) mmol/L Uric Acid (2.3-7.6) mg/dL Calcium 9.7 (8.6-10.3) mg/dL Troponin I < 0.03 (< 0.04) ng/mL - Radiology Data Radiology results reviewed: Yes I reviewed the patient's radiology results. Chest x-ray stable with no acute signs of post procedural-related issue - EKG Data EKG #1 EKG attestation: Yes I reviewed and interpreted this EKG. EKG results narrative: EKG shows electronically ventricularly paced rhythm. Ventricular rate of 86. MO interval 141. QRS duration of 137. QTC of 383. [place] appears to be normal. Patient's morphology appears to be similar in comparison EKG and 08/01/17. No acute changes noted for a paced rhythm at this time. Patient is denying chest pain
[2017-08-04 13:53] LABS: INR 1.2; Prothrombin Time 12.5 Seconds (9.4-12.1)
[2017-08-04 13:56] LABS: Activated Partial Thrombo Time 32.5 Seconds (26.0-36.0)
[2017-08-04] MEDS ORDERED: Ketorolac 15 MG/ML VIAL IVP ONE (14:02)
[2017-08-04] MEDS ORDERED: Ondansetron 4 MG/2 ML VIAL IVP ONE (14:02)
[2017-08-04 14:06] LABS: BUN/Creatinine Ratio 19 (6-26); Blood Urea Nitrogen 13 mg/dL (6-20); Calcium 9.7 mg/dL (8.6-10.3); Carbon Dioxide 24 mEq/L (23-29); Chloride 101 mEq/L (98-107); Glucose 130 mg/dL (70-105); Osmolality,Calculated 276 (280-300); Potassium 4.3 mEq/L (3.5-5.1); Sodium 132 mEq/L (136-145); Troponin I < 0.03 ng/mL (< 0.04); eGFR For African Americans > 60 (> 60); eGFR For Non-African Americans > 60 (> 60)
[2017-08-04] MEDS ORDERED: 0.9 % Sodium Chloride 1,000 ML IVC ONE (15:17)
--- NOTE | 2017-08-04 17:08 | Internal Med History&Physical ---
Date of Encounter: 08/04/17 Time of Encounter: 04:00 Internal Medicine - H&P: HPI Chief complaint: left upper arm edema History of present illness: Mr. Bowen is a 51 year old male Patient with PMH of recent catheterization and pacemaker placement within the last 3 days who presents to the emergency room for evaluation of left hand swelling, redness and irritation. The pacemaker site appears to be stable. the patient was evaluated with ultrasound of his left upper extremity was obtained Patient's ultrasound was negative for acute signs of DVT. His laboratory data revealed leukocytosis and the clinical picture was suggestive of cellulitis, the patient was started on antibiotics, IV fluids, and cardiology was consulted for further evaluation and management. Past Med Surg Social Fam HX - Past Medical History Medical history: cardiomyopathy, coronary artery disease, hypertension Psychiatric history: no psych history - Past Surgical History Surgical History: angioplasty/stent, AICD - Social History Smoking Status: Former smoker Smokeless Tobacco Status: No Alcohol use: none Drug use: none - Family History Mother Family Member Ethnicity: Non- Living Status: Hx Family Cardiac Disorders: Yes Hx Family Neurologic Disorders: Yes (Alzheimer's disease) Father Family Member Ethnicity: Non- Living Status: Still Living Brother Family Member Ethnicity: Non- Living Status: Still Living Hx Family Cardiac Disorders: Yes ([place], Cardiac ablation x2, HTN, HLD) Hx Family Endocrine Disorder: Yes (DM) Sister Family Member Ethnicity: Non- Living Status: Still Living Internal Medicine - H&P: Meds Aspirin Enteric Coated [Aspirin EC] 81 mg PO DAILY #30 tablet. 03/03/17 [Rx] Spironolactone [Aldactone] 12.5 mg PO DAILY #30 tablet 03/03/17 [Rx] Ticagrelor [Brilinta] 90 mg PO BID #60 tablet 03/03/17 [Rx] Allopurinol [Zyloprim 100 MG] 100 mg PO DAILY 08/01/17 [History] Digoxin [Lanoxin] 0.125 mg PO DAILY 08/01/17 [History] Metoprolol XL (24 HR) Succ [Toprol Xl] 12.5 mg PO DAILY 08/01/17 [History] Omeprazole [PriLOSEC] 20 mg PO DAILY 08/01/17 [History] Sacubitril/Valsartan [Entresto 97 mg-103 mg Tablet] 1 each PO BID 08/01/17 [ History] Sulfamethoxazole/Trimeth DS [Bactrim DS] 1 each PO BID 7 Days #14 tablet [Rx] 3 Allergy/AdvReac Type Severity Reaction Status Date / Time Penicillins [PCN] AdvReac See Verified 03/26/17 11:00 Comments All Systems PM: A 10-system review of systems was performed and is negative for pertinent findings except as documented above in the HPI. - Constitutional Vitals: Temp Pulse Resp BP Pulse Ox 98.2 F 90 18 131/84 97 08/04/17 16:04 08/04/17 16:04 08/04/17 16:04 08/04/17 16:04 08/04/17 16:04 Internal Med - H&P Results - Labs CBC & Chem 7: 08/08/17 01:08 08/08/17 01:08 - Assessment and plan (1) Cellulitis Status: Acute Assessment and plan: Blood cX Emperic ABs IV fluids Cardiology consult Qualifiers: Site of cellulitis: extremity Site of cellulitis of extremity: upper extremity Laterality: left Qualified Code(s): L03.114 - Cellulitis of left upper limb (2) HTN (hypertension) Status: Chronic Assessment and plan: We will cont home meds Qualifiers: Hypertension type: essential hypertension Qualified Code(s): I10 - Essential (primary) hypertension (3) Hyponatremia Status: Acute Assessment and plan: Hypovolumic hyponatermia, starting IV fluids (4) Heart failure Status: Acute Assessment and plan: We will cont home meds Qualifiers: Heart failure type: systolic Heart failure chronicity: chronic Qualified Code(s): I50.22 - Chronic systolic (congestive) heart failure (5) Cardiomyopathy Status: Deleted Assessment and plan: We will cont home meds Qualifiers: Cardiomyopathy type: ischemic Qualified Code(s): I25.5 - Ischemic cardiomyopathy (6) DVT prophylaxis Status: Deleted - Time Spent With Patient Total time spent is greater than 50% in coordination of care (as documented) at patient's floor/unit and/or counseling patient:
[2017-08-04] MEDS ORDERED: Naloxone 0.4 MG/ML INJ IVP PRN (17:26)
[2017-08-04] MEDS ORDERED: 0.9 % Sodium Chloride 1,000 ML ONE (18:10)
[2017-08-04] MEDS: *HR* Heparin 5,000 UNIT/ML VIAL SQ SCH (18:20)
[2017-08-04] MEDS: 0.9 % Sodium Chloride 1,000 ML IVC SCH (18:20)
[2017-08-04] MEDS: *HR* Ticagrelor 90 MG TABLET PO SCH (21:08)
[2017-08-04] MEDS: SACUBITRIL/VALSARTAN 97/103 MG TABLET PO SCH (21:08)
[2017-08-05] MEDS: 0.9 % Sodium Chloride 1,000 ML IVC SCH (01:39)
[2017-08-05 01:59] LABS: Basophils % 0.3 %; Eosinophils # 0.2 K/mcL (0.0-0.6); Eosinophils % 1.9 %; Hematocrit 36.8 % (37.5-50.1); Hemoglobin 12.7 g/dL (12.9-16.9); Immature Granulocytes % 0.5 % (0-4); Lymphocytes # 2.7 K/mcL (0.6-4.6); Lymphocytes % 24.1 %; Mean Corpuscular HGB Conc 34.5 g/dL (31.6-35.5); Mean Corpuscular Volume 86.8 fL (83.0-100.0); Monocytes # 1.3 K/mcL (0.0-1.3); Monocytes % 11.6 %; Platelet Count 184 K/mcL (140-400); Red Blood Count 4.24 M/mcL (4.19-5.50); Red Cell Distribution Width 14.4 % (11.5-14.5); Segmented Neutrophils % 61.6 %
[2017-08-05 02:11] LABS: INR 1.1; Prothrombin Time 11.8 Seconds (9.4-12.1)
[2017-08-05 02:15] LABS: Alanine Aminotransferase 8 Units/L (7-52); Albumin 3.5 g/dL (3.5-5.7); Albumin/Globulin Ratio 1.3 (1.1-2.2); Alkaline Phosphatase 66 Units/L (34-104); Aspartate Amino Transferase 9 Units/L (13-39); BUN/Creatinine Ratio 19 (6-26); Bilirubin,Total 0.5 mg/dL (0.3-1.0); Blood Urea Nitrogen 14 mg/dL (6-20); Calcium 8.9 mg/dL (8.6-10.3); Carbon Dioxide 23 mEq/L (23-29); Chloride 106 mEq/L (98-107); Chol/HDL Ratio 5.8 (0-4.9); Cholesterol 162 mg/dL (< 200); Globulin 2.7 g/dL (2.4-3.5); Glucose 112 mg/dL (70-105); HDL Cholesterol 28 mg/dL (40-59); LDL Cholesterol,Calculated 102 mg/dL (0-99); Magnesium 1.7 mg/dL (1.6-2.6); Osmolality,Calculated 281 (280-300); Phosphorous 3.2 mg/dL (2.7-4.5); Sodium 135 mEq/L (136-145); Total Protein 6.2 g/dL (6.4-8.9); Triglycerides 158 mg/dL (< 150); eGFR For African Americans > 60 (> 60); eGFR For Non-African Americans > 60 (> 60)
[2017-08-05] MEDS: *HR* Heparin 5,000 UNIT/ML VIAL SQ SCH ×2 (03:15→18:31)
[2017-08-05 04:56] LABS: Bilirubin,Urine Negative (Negative); Blood,Urine Negative (Negative); Clarity,Urine Clear (Clear); Color,Urine Yellow (Yellow); Glucose,Urine (UA) Normal (Normal); Ketones,Urine Negative (Negative); Leukocyte Esterase,Urine Negative (Negative); Nitrite,Urine Negative (Negative); Protein,Urine Negative (Neg-Trace); Specific Gravity,Urine 1.017 (1.010-1.025); Urobilinogen,Urine Normal (Normal)
[2017-08-05] MEDS ORDERED: Clindamycin 900 MG/50 ML 900 MG/50 ML IV.SOLN IVPB SCH (06:00)
[2017-08-05] MEDS: Acetaminophen 325 MG TABLET PO PRN ×2 (08:10→19:27)
[2017-08-05] MEDS: Spironolactone 25 MG TABLET PO SCH (08:11)
[2017-08-05] MEDS: SACUBITRIL/VALSARTAN 97/103 MG TABLET PO SCH ×2 (08:11→19:28)
[2017-08-05] MEDS: Metoprolol XL (24 HR) Succ 25 MG TAB.ER.24H PO SCH (08:11)
[2017-08-05] MEDS: *HR* Digoxin 0.125 MG TABLET PO SCH (08:11)
[2017-08-05] MEDS: *HR* Ticagrelor 90 MG TABLET PO SCH ×2 (08:12→19:28)
[2017-08-05] MEDS: Aspirin Enteric Coated 81 MG Tablet PO SCH (08:12)
--- NOTE | 2017-08-05 17:58 | Electrocardiograph Report ---
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
--- NOTE | 2017-08-05 19:33 | Internal Med Progress Note ---
Date of Encounter: 08/05/17 Time of Encounter: 11:00 - Assessment and plan (1) Cellulitis Current Visit: Yes Status: Acute Assessment and plan: Continue with clindamycin and vancomycin pending blood culture results Blood cultures Consult infectious disease as needed Venous Doppler with no DVT Qualifiers: Site of cellulitis: extremity Site of cellulitis of extremity: upper extremity Laterality: left Qualified Code(s): L03.114 - Cellulitis of left upper limb (2) HTN (hypertension) Current Visit: No Status: Chronic Assessment and plan: Presently controlled continue with home medications Qualifiers: Hypertension type: essential hypertension Qualified Code(s): I10 - Essential (primary) hypertension (3) Hyponatremia Current Visit: No Status: Acute Assessment and plan: Hypovolumic hyponatermia, improving after IV fluids. We will continue to monitor (4) DVT prophylaxis Current Visit: No Status: Acute Assessment and plan: Heparin subcutaneous (5) Heart failure Current Visit: No Status: Acute Assessment and plan: Previous echo shows EF of 25-30% with severely dilated left atrium no pulmonary hypertension moderate mitral regurgitation severe global and segmental left ventricular systolic dysfunction Pacemaker placed Continue with beta arnulfo Continue spironolactone Qualifiers: Heart failure type: systolic Heart failure chronicity: chronic Qualified Code(s): I50.22 - Chronic systolic (congestive) heart failure (6) Cardiomyopathy Current Visit: No Status: Acute Assessment and plan: Patient has pacemaker continue beta arnulfo monitor intake and output Consult cardiology as needed Qualifiers: Cardiomyopathy type: ischemic Qualified Code(s): I25.5 - Ischemic cardiomyopathy - Time Spent With Patient Total time spent is greater than 50% in coordination of care (as documented) at patient's floor/unit and/or counseling patient: - Subjective Interval history: Patient was seen and examined at bedside. Presently denies any pain or discomfort. Left hand continues to be swollen encouraged patient to elevate hand. Reviewed treatment plan with the patient verbalized understanding. - Constitutional Vitals: Temp Pulse Resp BP Pulse Ox 97.8 F 80 16 126/81 100 08/05/17 15:00 08/05/17 15:00 08/05/17 15:00 08/05/17 15:00 08/05/17 15:00 General appearance: Present: A&O X 3 - Head Head exam: Present: atraumatic, normocephalic - Eye Eye exam: Present: PERRL, conjuntiva pink, sclera anicteric Pupils: Present: PERRL - Neck Neck exam general surgery: Present: supple, trachea midline. Absent: lymphadenopathy - Respiratory Respiratory exam: Present: CTAB. Absent: accessory muscle use, rales, rhonchi, wheezes - Cardiovascular Cardiovascular exam: Present: RRR, +S1, +S2. Absent: diastolic murmur, gallop, rubs, systolic murmur - GI/Abdominal GI/Abdominal exam: Present: normal bowel sounds, soft, no peritoneal signs. Absent: distended, tenderness - Extremities Exam Extremities exam: Present: warm, radial pulses palpable and symmetrical. Absent : calf tenderness, cyanotic, pedal edema - Neurological Exam Neurological exam: Present: CN II-XII intact, oriented X3, no focal deficits. Absent: pronater drift, facial droop, speech deficit - Skin Skin exam: Present: dry, intact Internal Medicine: Result - Labs CBC & Chem 7: 08/05/17 00:54 08/05/17 00:54 Labs: Short CBC 08/05/17 Range/Units 00:54 WBC 11.3 H (4.3-11.1) K/mcL Hgb 12.7 L (12.9-16.9) g/dL Hct 36.8 L (37.5-50.1) % Plt Count 184 (140-400) K/mcL Neutrophils # 7.0 (1.6-8.9) K/mcL BMP 08/05/17 00:54 Sodium 135 L Potassium 4.0 Chloride 106 Carbon Dioxide 23 BUN 14 Creatinine 0.73 Glucose 112 H Calcium 8.9 Cardiac Enzymes 08/04/17 08/05/17 08/05/17 Range/Units 19:21 00:54 07:44 Troponin I < 0.03 < 0.03 < 0.03 (< 0.04) ng/mL Liver Function 08/05/17 Range/Units 00:54 Total Bilirubin 0.5 (0.3-1.0) mg/dL AST 9 L (13-39) Units/L ALT 8 (7-52) Units/L Alkaline Phosphatase 66 (34-104) Units/L Albumin 3.5 (3.5-5.7) g/dL Urine 08/05/17 Range/Units 04:35 Urine Color Yellow (Yellow) Urine Clarity Clear (Clear) Urine pH 6.0 (5.0-8.0) pH Units Ur Specific [place] 1.017 (1.010-1.025) Urine Protein Negative (Neg-Trace) mg/dL Urine Glucose (UA) Normal (Normal) mg/dL - ABG Interpretation ABG results: PT/INR, D-dimer PT 11.8 Seconds (9.4-12.1) 08/05/17 00:54 Consult Discharge Plan - Plan Referrals: Salbador Madrid DO [Primary Care Provider] -
[2017-08-06] MEDS: Acetaminophen 325 MG TABLET PO PRN ×3 (03:22→18:25)
[2017-08-06] MEDS: *HR* Heparin 5,000 UNIT/ML VIAL SQ SCH ×2 (06:01→18:23)
[2017-08-06 07:01] LABS: Basophils % 0.4 %; Eosinophils # 0.3 K/mcL (0.0-0.6); Hematocrit 35.6 % (37.5-50.1); Immature Granulocytes % 0.3 % (0-4); Lymphocytes # 1.7 K/mcL (0.6-4.6); Lymphocytes % 18.1 %; Mean Corpuscular HGB Conc 33.7 g/dL (31.6-35.5); Mean Corpuscular Hemoglobin 28.9 pg (28.0-33.3); Mean Corpuscular Volume 85.8 fL (83.0-100.0); Mean Platelet Volume 11.8 fL (9.4-12.4); Neutrophils # 6.2 K/mcL (1.6-8.9); Platelet Count 206 K/mcL (140-400); Red Blood Count 4.15 M/mcL (4.19-5.50); Red Cell Distribution Width 14.1 % (11.5-14.5); Segmented Neutrophils % 67.2 %
[2017-08-06 08:03] LABS: BUN/Creatinine Ratio 18 (6-26); Blood Urea Nitrogen 12 mg/dL (6-20); Calcium 9.1 mg/dL (8.6-10.3); Carbon Dioxide 25 mEq/L (23-29); Chloride 103 mEq/L (98-107); Glucose 130 mg/dL (70-105); Osmolality,Calculated 284 (280-300); Potassium 3.9 mEq/L (3.5-5.1); Sodium 136 mEq/L (136-145); eGFR For African Americans > 60 (> 60); eGFR For Non-African Americans > 60 (> 60)
[2017-08-06] MEDS: SACUBITRIL/VALSARTAN 97/103 MG TABLET PO SCH ×2 (09:04→20:27)
[2017-08-06] MEDS: Spironolactone 25 MG TABLET PO SCH (09:05)
[2017-08-06] MEDS: *HR* Digoxin 0.125 MG TABLET PO SCH (09:05)
[2017-08-06] MEDS: *HR* Ticagrelor 90 MG TABLET PO SCH ×2 (09:06→20:27)
[2017-08-06] MEDS: Aspirin Enteric Coated 81 MG Tablet PO SCH (09:06)
[2017-08-06] MEDS: Metoprolol XL (24 HR) Succ 25 MG TAB.ER.24H PO SCH (09:08)
--- NOTE | 2017-08-06 10:40 | Internal Med Progress Note ---
Date of Encounter: 08/06/17 Time of Encounter: 10:39 - Assessment and plan (1) Cellulitis Current Visit: Yes Status: Acute Assessment and plan: Hand swelling has improved patient is able to slowly open and close hand. Pulses present Cap Refill brisk Continue with clindamycin and vancomycin pending blood culture results Blood cultures-initial blood cultures show gram positive rods patient is clinically improving white count is decreasing no fever he does not appear to be septic and we will continue with vancomycin pending final results - I did discuss with Dr Bardales who agrees with plan Consult infectious disease as needed Venous Doppler with no DVT Qualifiers: Site of cellulitis: extremity Site of cellulitis of extremity: upper extremity Laterality: left Qualified Code(s): L03.114 - Cellulitis of left upper limb (2) HTN (hypertension) Current Visit: No Status: Chronic Assessment and plan: Presently controlled continue with home medications Qualifiers: Hypertension type: essential hypertension Qualified Code(s): I10 - Essential (primary) hypertension (3) Hyponatremia Current Visit: No Status: Acute Assessment and plan: Hypovolumic hyponatermia, Resolved We will continue to monitor (4) DVT prophylaxis Current Visit: No Status: Acute Assessment and plan: Heparin subcutaneous (5) Heart failure Current Visit: No Status: Acute Assessment and plan: Previous echo shows EF of 25-30% with severely dilated left atrium no pulmonary hypertension moderate mitral regurgitation severe global and segmental left ventricular systolic dysfunction Pacemaker placed Continue with beta arnulfo Continue spironolactone Stable at this time continue to monitor Qualifiers: Heart failure type: systolic Heart failure chronicity: chronic Qualified Code(s): I50.22 - Chronic systolic (congestive) heart failure (6) Cardiomyopathy Current Visit: No Status: Acute Assessment and plan: Patient has pacemaker continue beta arnulfo monitor intake and output Consult cardiology as needed Qualifiers: Cardiomyopathy type: ischemic Qualified Code(s): I25.5 - Ischemic cardiomyopathy - Time Spent With Patient Total time spent is greater than 50% in coordination of care (as documented) at patient's floor/unit and/or counseling patient: - Subjective Interval history: Patient was seen and examined at bedside. Patient has been in relating in the silverio without difficulty. He does complain of some knee pain which she states improves when he ambulates. His hand appears to be less swollen encouraged patient to keep hand elevated on pillows IV treatment plan the patient verbalized understanding. - Constitutional Vitals: Temp Pulse Resp BP Pulse Ox 98.0 F 81 14 115/78 97 08/06/17 08:10 08/06/17 08:10 08/06/17 08:10 08/06/17 08:10 08/06/17 08:10 General appearance: Present: A&O X 3 - Head Head exam: Present: atraumatic, normocephalic - Eye Eye exam: Present: PERRL, conjuntiva pink, sclera anicteric Pupils: Present: PERRL - Neck Neck exam general surgery: Present: supple, trachea midline. Absent: lymphadenopathy - Respiratory Respiratory exam: Present: CTAB. Absent: accessory muscle use, rales, rhonchi, wheezes - Cardiovascular Cardiovascular exam: Present: RRR, +S1, +S2. Absent: diastolic murmur, gallop, rubs, systolic murmur - GI/Abdominal GI/Abdominal exam: Present: normal bowel sounds, soft, no peritoneal signs. Absent: distended, tenderness - Extremities Exam Extremities exam: Present: warm, radial pulses palpable and symmetrical. Absent : calf tenderness, cyanotic, pedal edema - Expanded Upper Extremities Exam Hand wrist exam: Present: swelling, tenderness - Neurological Exam Neurological exam: Present: CN II-XII intact, oriented X3, no focal deficits. Absent: pronater drift, facial droop, speech deficit - Skin Skin exam: Present: dry, intact Internal Medicine: Result - Labs CBC & Chem 7: 08/06/17 05:34 08/06/17 05:34 Labs: Short CBC 08/06/17 Range/Units 05:34 WBC 9.3 (4.3-11.1) K/mcL Hgb 12.0 L (12.9-16.9) g/dL Hct 35.6 L (37.5-50.1) % Plt Count 206 (140-400) K/mcL Neutrophils # 6.2 (1.6-8.9) K/mcL BMP 08/06/17 05:34 Sodium 136 Potassium 3.9 Chloride 103 Carbon Dioxide 25 BUN 12 Creatinine 0.65 L Glucose 130 H Calcium 9.1 - ABG Interpretation ABG results: PT/INR, D-dimer PT 11.8 Seconds (9.4-12.1) 08/05/17 00:54 Consult Discharge Plan - Plan Referrals: Salbador Madrid, [Primary Care Provider] -
[2017-08-07] MEDS: Acetaminophen 325 MG TABLET PO PRN (02:09)
[2017-08-07] MEDS: *HR* Heparin 5,000 UNIT/ML VIAL SQ SCH ×2 (06:15→17:27)
[2017-08-07 06:18] LABS: Basophils % 0.3 %; Eosinophils # 0.2 K/mcL (0.0-0.6); Eosinophils % 1.8 %; Hematocrit 37.1 % (37.5-50.1); Hemoglobin 12.9 g/dL (12.9-16.9); Immature Granulocytes % 0.4 % (0-4); Lymphocytes # 2.1 K/mcL (0.6-4.6); Lymphocytes % 18.7 %; Mean Corpuscular HGB Conc 34.8 g/dL (31.6-35.5); Mean Corpuscular Hemoglobin 30.1 pg (28.0-33.3); Mean Corpuscular Volume 86.5 fL (83.0-100.0); Monocytes # 1.2 K/mcL (0.0-1.3); Monocytes % 10.6 %; Neutrophils # 7.7 K/mcL (1.6-8.9); Platelet Count 247 K/mcL (140-400); Red Blood Count 4.29 M/mcL (4.19-5.50); Red Cell Distribution Width 14.1 % (11.5-14.5); Segmented Neutrophils % 68.2 %
[2017-08-07 06:34] LABS: BUN/Creatinine Ratio 18 (6-26); Blood Urea Nitrogen 12 mg/dL (6-20); Calcium 9.5 mg/dL (8.6-10.3); Carbon Dioxide 23 mEq/L (23-29); Chloride 100 mEq/L (98-107); Glucose 164 mg/dL (70-105); Osmolality,Calculated 279 (280-300); Sodium 133 mEq/L (136-145); eGFR For African Americans > 60 (> 60); eGFR For Non-African Americans > 60 (> 60)
[2017-08-07] MEDS: Aspirin Enteric Coated 81 MG Tablet PO SCH (08:51)
[2017-08-07] MEDS: Spironolactone 25 MG TABLET PO SCH (08:51)
[2017-08-07] MEDS: *HR* Digoxin 0.125 MG TABLET PO SCH (08:51)
[2017-08-07] MEDS: *HR* Ticagrelor 90 MG TABLET PO SCH ×2 (08:52→19:58)
[2017-08-07] MEDS: SACUBITRIL/VALSARTAN 97/103 MG TABLET PO SCH ×2 (08:52→19:58)
[2017-08-07] MEDS: Metoprolol XL (24 HR) Succ 25 MG TAB.ER.24H PO SCH (09:00)
[2017-08-07] MEDS: *HR* HYDROcodone/Acet 5/325 mg TABLET PO PRN ×2 (12:44→19:57)
--- NOTE | 2017-08-07 14:58 | Internal Med Progress Note ---
Date of Encounter: 08/07/17 Time of Encounter: 14:56 - Assessment and plan (1) Cellulitis Current Visit: Yes Status: Acute Assessment and plan: Hand swelling has improved patient is able to slowly open and close hand. Pulses present Cap Refill brisk Continue with vancomycin pending blood culture results Blood cultures-initial blood cultures show gram positive rods patient is clinically improving white count is decreasing no fever he does not appear to be septic will recheck blood cultures to r/o possible contamination- we will continue with vancomycin until resulted Consult infectious disease as needed Venous Doppler with no DVT Qualifiers: Site of cellulitis: extremity Site of cellulitis of extremity: upper extremity Laterality: left Qualified Code(s): L03.114 - Cellulitis of left upper limb (2) HTN (hypertension) Current Visit: No Status: Chronic Assessment and plan: Presently controlled continue with home medications Qualifiers: Hypertension type: essential hypertension Qualified Code(s): I10 - Essential (primary) hypertension (3) Hyponatremia Current Visit: No Status: Acute (4) DVT prophylaxis Current Visit: No Status: Acute (5) Heart failure Current Visit: No Status: Acute Qualifiers: Heart failure type: systolic Heart failure chronicity: chronic Qualified Code(s): I50.22 - Chronic systolic (congestive) heart failure (6) Cardiomyopathy Current Visit: No Status: Acute Qualifiers: Cardiomyopathy type: ischemic Qualified Code(s): I25.5 - Ischemic cardiomyopathy - Time Spent With Patient Total time spent is greater than 50% in coordination of care (as documented) at patient's floor/unit and/or counseling patient: - Subjective Interval history: Patient was seen and examined at bedside. Patient has been in relating in the silver[place] without difficulty. He does complain of some knee pain which His hand has significantly decreased swelling. encouraged patient to keep hand elevated on pillows. Fingers 2-4 abduction intact . I have reviewed treatment plan the patient verbalized understanding. - Constitutional Vitals: Temp Pulse Resp BP Pulse Ox 97.9 F 89 15 136/88 95 08/07/17 11:17 08/07/17 11:17 08/07/17 11:17 08/07/17 11:17 08/07/17 11:17 General appearance: Present: A&O X 3 - Head Head exam: Present: atraumatic, normocephalic - Eye Eye exam: Present: PERRL, conjuntiva pink, sclera anicteric Pupils: Present: PERRL - Neck Neck exam general surgery: Present: supple, trachea midline. Absent: lymphadenopathy - Respiratory Respiratory exam: Present: CTAB. Absent: accessory muscle use, rales, rhonchi, wheezes - Cardiovascular Cardiovascular exam: Present: RRR, +S1, +S2. Absent: diastolic murmur, gallop, rubs, systolic murmur - GI/Abdominal GI/Abdominal exam: Present: normal bowel sounds, soft, no peritoneal signs. Absent: distended, tenderness - Extremities Exam Extremities exam: Present: warm, radial pulses palpable and symmetrical. Absent : calf tenderness, cyanotic, pedal edema - Expanded Upper Extremities Exam Hand wrist exam: Present: swelling Neuro motor exam: Present: fingers 2-5 abduction intact Vascular exam: Present: normal capillary refill - Neurological Exam Neurological exam: Present: CN II-XII intact, oriented X3, no focal deficits. Absent: pronater drift, facial droop, speech deficit - Skin Skin exam: Present: dry, intact Internal Medicine: Result - Labs CBC & Chem 7: 08/07/17 04:35 08/07/17 04:35 Labs: Short CBC 08/07/17 Range/Units 04:35 WBC 11.3 H (4.3-11.1) K/mcL Hgb 12.9 (12.9-16.9) g/dL Hct 37.1 L (37.5-50.1) % Plt Count 247 (140-400) K/mcL Neutrophils # 7.7 (1.6-8.9) K/mcL BMP 08/07/17 04:35 Sodium 133 L Potassium 4.0 Chloride 100 Carbon Dioxide 23 BUN 12 Creatinine 0.66 L Glucose 164 H Calcium 9.5 - ABG Interpretation ABG results: PT/INR, D-dimer PT 11.8 Seconds (9.4-12.1) 08/05/17 00:54 Consult Discharge Plan - Plan Referrals: Salbador Madrid DO [Primary Care Provider] -
[2017-08-08 01:23] LABS: Basophils % 0.4 %; Eosinophils # 0.2 K/mcL (0.0-0.6); Eosinophils % 1.7 %; Hematocrit 34.2 % (37.5-50.1); Hemoglobin 11.6 g/dL (12.9-16.9); Immature Granulocytes % 0.3 % (0-4); Lymphocytes # 2.5 K/mcL (0.6-4.6); Lymphocytes % 26.4 %; Mean Corpuscular HGB Conc 33.9 g/dL (31.6-35.5); Mean Corpuscular Volume 85.5 fL (83.0-100.0); Mean Platelet Volume 10.8 fL (9.4-12.4); Monocytes # 1.3 K/mcL (0.0-1.3); Monocytes % 13.7 %; Neutrophils # 5.5 K/mcL (1.6-8.9); Platelet Count 240 K/mcL (140-400); Red Cell Distribution Width 14.1 % (11.5-14.5); Segmented Neutrophils % 57.5 %
[2017-08-08 01:44] LABS: BUN/Creatinine Ratio 22 (6-26); Blood Urea Nitrogen 15 mg/dL (6-20); Calcium 9.3 mg/dL (8.6-10.3); Carbon Dioxide 25 mEq/L (23-29); Chloride 101 mEq/L (98-107); Glucose 127 mg/dL (70-105); Osmolality,Calculated 278 (280-300); Potassium 4.1 mEq/L (3.5-5.1); Sodium 133 mEq/L (136-145); eGFR For African Americans > 60 (> 60); eGFR For Non-African Americans > 60 (> 60)
[2017-08-08] MEDS: *HR* HYDROcodone/Acet 5/325 mg TABLET PO PRN ×2 (01:55→08:53)
[2017-08-08] MEDS: *HR* Heparin 5,000 UNIT/ML VIAL SQ SCH (01:59)
[2017-08-08] MEDS: Aspirin Enteric Coated 81 MG Tablet PO SCH (08:49)
[2017-08-08] MEDS: *HR* Ticagrelor 90 MG TABLET PO SCH (08:49)
[2017-08-08] MEDS: *HR* Digoxin 0.125 MG TABLET PO SCH (08:49)
[2017-08-08] MEDS: Metoprolol XL (24 HR) Succ 25 MG TAB.ER.24H PO SCH (08:49)
[2017-08-08] MEDS: Spironolactone 25 MG TABLET PO SCH (08:49)
[2017-08-08] MEDS: SACUBITRIL/VALSARTAN 97/103 MG TABLET PO SCH (08:50)
--- NOTE | 2017-08-08 09:59 | Internal Med Progress Note ---
Date of Encounter: 08/08/17 Time of Encounter: 09:57 - Assessment and plan (1) Positive blood culture Current Visit: Yes Status: Acute Assessment and plan: 1/2 blood cultures on 08/04/17 positive for gram positive rods. With suspected cellulitis to left arm as noted below along with recently implanted ICD. WBC 15 K on admission, lactic acid normal. CBC now trending down and symptomatically improving. Afebrile. Continue IV vancomycin. ID consulted. repeat blood cultures pending (2) Cellulitis Current Visit: Yes Status: Acute Assessment and plan: Presented with left arm pain and swelling concerning for cellulitis. WBC 15 K on admission. Lactic acid normal. Left upper extremity venous Doppler negative for DVT. Symptoms improving with IV vancomycin. ID consult as noted above. Qualifiers: Site of cellulitis: extremity Site of cellulitis of extremity: upper extremity Laterality: left Qualified Code(s): L03.114 - Cellulitis of left upper limb (3) HTN (hypertension) Current Visit: No Status: Chronic Assessment and plan: per hx. BP controlled. Cont home BP medication. Qualifiers: Hypertension type: essential hypertension Qualified Code(s): I10 - Essential (primary) hypertension (4) Hyponatremia Current Visit: No Status: Acute Assessment and plan: mild; Na 132. Remained neurologically intact. Intermittently monitor. (5) Heart failure Current Visit: No Status: Acute Assessment and plan: hx systolic CHF with EF 25-30%. S/p ICD placement on 08/01/2017. Appears euvolemic. Continue home ASA, Brilinta, digoxin, BB, entresto Qualifiers: Heart failure type: systolic Heart failure chronicity: chronic Qualified Code(s): I50.22 - Chronic systolic (congestive) heart failure (6) CAD (coronary artery disease) Current Visit: No Status: Chronic Assessment and plan: per hx. 02/2017 [facility] with successful PCI in 2 drug eluting stents. Asymptomatic , denied chest pain. Continue home ASA, Brilinta, BB. Qualifiers: Coronary Disease-Associated Artery/Lesion type: [place] artery [place] vs. transplanted heart: [place] heart Associated angina: without angina Qualified Code(s): I25.10 - Atherosclerotic heart disease of [place] coronary artery without angina pectoris (7) DVT prophylaxis Current Visit: No Status: Acute Assessment and plan: Heparin - Time Spent With Patient Total time spent is greater than 50% in coordination of care (as documented) at patient's floor/unit and/or counseling patient: - Subjective Interval history: Seen and examined at bedside. Patient is new to me, information obtained from chart review and patient report. Patient says he feels much better and would like to discharge home today if possible. Still having some left arm pain but overall significantly improved. No chest pain or shortness of breath. Complains of generalized malaise which is secondary to his known arthritis. - Constitutional Vitals: Temp Pulse Resp BP Pulse Ox 98.2 F 74 17 111/69 96 08/08/17 06:31 08/08/17 06:31 08/08/17 06:31 08/08/17 06:31 08/08/17 06:31 General appearance: Present: A&O X 3 - Head Head exam: Present: atraumatic, normocephalic - Eye Eye exam: Present: PERRL, conjuntiva pink, sclera anicteric Pupils: Present: PERRL - Neck Neck exam general surgery: Present: supple, trachea midline. Absent: lymphadenopathy - Respiratory Respiratory exam: Present: CTAB. Absent: accessory muscle use, rales, rhonchi, wheezes - Cardiovascular Cardiovascular exam: Present: RRR, +S1, +S2. Absent: diastolic murmur, gallop, rubs, systolic murmur Additional comments: left chest PPM with Steri-Strips intact. Scant amount of dried blood to medial site. Slight tenderness with palpation. - GI/Abdominal GI/Abdominal exam: Present: normal bowel sounds, soft, no peritoneal signs. Absent: distended, tenderness - Extremities Exam Extremities exam: Present: warm, radial pulses palpable and symmetrical. Absent : calf tenderness, cyanotic, pedal edema - Neurological Exam Neurological exam: Present: CN II-XII intact, oriented X3, no focal deficits. Absent: pronater drift, facial droop, speech deficit - Skin Skin exam: Present: dry, intact Internal Medicine: Result - Labs CBC & Chem 7: 08/08/17 01:08 08/08/17 01:08 Labs: Short CBC 08/08/17 Range/Units 01:08 WBC 9.6 (4.3-11.1) K/mcL Hgb 11.6 L (12.9-16.9) g/dL Hct 34.2 L (37.5-50.1) % Plt Count 240 (140-400) K/mcL Neutrophils # 5.5 (1.6-8.9) K/mcL BMP 08/08/17 01:08 Sodium 133 L Potassium 4.1 Chloride 101 Carbon Dioxide 25 BUN 15 Creatinine 0.69 L Glucose 127 H Calcium 9.3 - ABG Interpretation ABG results: PT/INR, D-dimer PT 11.8 Seconds (9.4-12.1) 08/05/17 00:54 Consult Discharge Plan - Plan Referrals: Salbador Madrid DO [Primary Care Provider] -
--- NOTE | 2017-08-08 13:30 | Infectious Disease Consult ---
Date of Encounter: 08/08/17 Time of Encounter: 13:29 Assessment and Plan (1) NSTEMI (non-ST elevated myocardial infarction) Status: Acute (2) Arthritis Status: Chronic (3) Tobacco abuse Status: Chronic (4) ICD (implantable cardioverter-defibrillator), biventricular, in situ Status: Acute (5) Cellulitis Status: Acute Assessment and plan: states that he had cellulitis on addmission with edema, pain and erythema. I dont appreciate it at this time asked patient if he had a recent gout attack, he said he doesnt remember when was the last time he had a gout attack currently, I dont see any cellulitis or arthritis or septic arthritis. 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 Bowen is a 51 year old male Patient is a 51-year-old gentleman who was admitted to [facility] on August 04 with left upper arm edema, we are consulted on August 08 for bacteremia and the patient with you pacemaker. Patient with cardiomyopathy, systolic CHF with ejection fraction of 25-30%, coronary artery disease and history of PCI in February 2017, mitral regurgitation, history of gout, presented to [facility] initially on August 02 for ICD insertion. Patient underwent the placement of the ICD and was discharged home. 3 days later a she came back complaining of left hand swelling to the department. Since admission, patient has been afebrile. Patient had a few episodes of tachycardia and the presenting WBC of 15.5 thousand with normal differential. A urinalysis was negative. Blood cultures from August 04 grew 1 out of 2 sets gram -positive rods. The chest x-ray revealed the implanted cardiac device in the left chest appears stable position with no postprocedural pneumothorax. Minimal right basilar atelectasis though no other acute cardiopulmonary process seen. Patient was started empirically on vancomycin with the Vanco trough that has been ranging from 9-12 on physical exam, yokasta was irritable and he said he didnt want to be in [facility]. patient .physicial exam reveals left chest surgical wound intact with no signs of infection. left arm/forearm and hand appears to be okay. I didnt appreciate any signs of cellulitis but again I only saw the patient day 5 of hospital stay CC: Shayna Erazo MD Past Med Surg Social Fam HX - Past Medical History Medical history: cardiomyopathy, coronary artery disease, hypertension Psychiatric history: no psych history - Past Surgical History Surgical History: angioplasty/stent, AICD - Social History Smoking Status: Former smoker Smokeless Tobacco Status: No Alcohol use: none Drug use: none - Family History Mother Family Member Ethnicity: Non- Living Status: Hx Family Cardiac Disorders: Yes Hx Family Neurologic Disorders: Yes (Alzheimer's disease) Father Family Member Ethnicity: Non- Living Status: Still Living Brother Family Member Ethnicity: Non- Living Status: Still Living Hx Family Cardiac Disorders: Yes (OK, Cardiac ablation x2, HTN, HLD) Hx Family Endocrine Disorder: Yes (DM) Sister Family Member Ethnicity: Non- Living Status: Still Living Infectious Disease-CN:Meds Aspirin Enteric Coated [Aspirin EC] 81 mg PO DAILY #30 tablet. 03/03/17 [Rx] Spironolactone [Aldactone] 12.5 mg PO DAILY #30 tablet 03/03/17 [Rx] Ticagrelor [Brilinta] 90 mg PO BID #60 tablet 03/03/17 [Rx] Allopurinol [Zyloprim 100 MG] 100 mg PO DAILY 08/01/17 [History] Digoxin [Lanoxin] 0.125 mg PO DAILY 08/01/17 [History] Metoprolol XL (24 HR) Succ [Toprol Xl] 12.5 mg PO DAILY 08/01/17 [History] Omeprazole [PriLOSEC] 20 mg PO DAILY 08/01/17 [History] Sacubitril/Valsartan [Entresto 97 mg-103 mg Tablet] 1 each PO BID 08/01/17 [ History] Sulfamethoxazole/Trimeth DS [Bactrim DS] 1 each PO BID 7 Days #14 tablet [Rx] 3 Allergy/AdvReac Type Severity Reaction Status Date / Time Penicillins [PCN] AdvReac See Verified 03/26/17 11:00 Comments Review of systems: 10 point ROS done, negative other for what's mentioned in the HPI Exam - Constitutional Vitals: Temp Pulse Resp BP Pulse Ox 97.5 F L 77 17 112/72 96 08/08/17 10:44 08/08/17 10:44 08/08/17 10:44 08/08/17 10:44 08/08/17 10:44 General appearance: no febrile, no no acute distress - Neck Neck exam: Present: full ROM. Absent: lymphadenopathy - Respiratory Respiratory exam: Present: CTAB. Absent: wheezes - Cardiovascular Cardiovascular exam: Present: RRR, +S1, +S2 Additional comments: chest with left surgical wound intact, no erythema no edema no drainage - GI/Abdominal GI/Abdominal exam: Present: normal bowel sounds, soft. Absent: tenderness - Extremities Exam Extremities exam: Present: normal inspection Additional comments: left hand, forarm and arm appear fine with no edema, no ertyema and no signs of cellulitis - Neurological Exam Neurological exam: Present: alert, oriented X3. Absent: speech deficit Infectious Disease CN: Results - Labs CBC & Chem 7: 08/08/17 01:08 08/08/17 01:08 Serology: Serology 08/05/17 Range/Units 04:35 Urine Color Yellow (Yellow) Urine Clarity Clear (Clear) Urine pH 6.0 (5.0-8.0) pH Units Ur Specific [place] 1.017 (1.010-1.025) Urine Protein Negative (Neg-Trace) mg/dL Urine Glucose (UA) Normal (Normal) mg/dL Urine Ketones Negative (Negative) mg/dL Urine Blood Negative (Negative) Urine Nitrite Negative (Negative) Urine Bilirubin Negative (Negative) Urine Urobilinogen Normal (Normal) mg/dL Ur Leukocyte Esterase Negative (Negative) Consult Discharge Plan - Plan Instructions: Sulfamethoxazole/Trimethoprim (By mouth), Cellulitis (DC) Referrals: Salbador Madrid DO [Primary Care Provider] - 08/15/17 1:45 pm (Please call your primary care physician tomorrow for an appointment as soon as possible. Your discharge home on Bactrim which can cause an increase in your digoxin level. You should have your digoxin level checked by the end of the week.) Prescriptions: Sulfamethoxazole/Trimeth DS [Bactrim DS] 1 each PO BID 7 Days #14 tablet
[2017-08-08 15:06] VITALS: BP 130/81
--- NOTE | 2017-08-08 15:18 | Discharge Summary ---
- NOTES TO OUTPATIENT PROVIDER Notes to Outpatient Provider: Recommend digoxin level by the end of the week; patient was discharged home on Bactrim which can cause an decrease in digoxin excretion. Orders not resulted at time of discharge: Pending orders 08/07/17 15:55 Culture,Blood [BC] Stat Date of Encounter: 08/08/17 Time of Encounter: 15:15 - Discharge Diagnosis (1) Positive blood culture Priority: Primary Status: Acute Assessment and Plan: 1/2 blood cultures on 08/04/17 positive for gram positive rods. WBC 15 K on admission, lactic acid normal. WBC normalized and symptomatically improving. Afebrile. Treated with IV vancomycin. Evaluated by ID who suspected contamination. 08/07/17 repeat blood cultures pending at time of discharge (2) Cellulitis Priority: Primary Status: Acute Assessment and Plan: Presented with left arm pain and swelling concerning for cellulitis. WBC 15 K on admission. Lactic acid normal. Left upper extremity venous Doppler negative for DVT. Symptoms improved with IV vancomycin. Discharge home on Bactrim. ID followed Qualifiers: Site of cellulitis: extremity Site of cellulitis of extremity: upper extremity Laterality: left Qualified Code(s): L03.114 - Cellulitis of left upper limb (3) HTN (hypertension) Priority: Secondary Status: Chronic Assessment and Plan: per hx. BP controlled. Cont home BP medication. Qualifiers: Hypertension type: essential hypertension Qualified Code(s): I10 - Essential (primary) hypertension (4) Hyponatremia Priority: Secondary Status: Acute Assessment and Plan: mild; Na 132. Remained neurologically intact. (5) Heart failure Priority: Secondary Status: Acute Assessment and Plan: hx systolic CHF with EF 25-30%. S/p ICD placement on 08/01/2017. Appears euvolemic. Continue home ASA, Brilinta, digoxin, BB, entresto Qualifiers: Heart failure type: systolic Heart failure chronicity: chronic Qualified Code(s): I50.22 - Chronic systolic (congestive) heart failure (6) CAD (coronary artery disease) Priority: Secondary Status: Chronic Assessment and Plan: per hx. 02/2017 [facility] with successful PCI in 2 drug eluting stents. Asymptomatic , denied chest pain. Continue home ASA, Brilinta, BB. Qualifiers: Coronary Disease-Associated Artery/Lesion type: [place] artery [place] vs. transplanted heart: [place] heart Associated angina: without angina Qualified Code(s): I25.10 - Atherosclerotic heart disease of [place] coronary artery without angina pectoris Hospital course: Please see assessment and plan for Hospital course Discharge discussed with: patient (Please see 08/08/17 progress note for further details.) - Time Spent with Patient Total time spent providing and/or coordinating discharge services: - Discharge Medications Prescriptions: Sulfamethoxazole/Trimeth DS [Bactrim DS] 1 each PO BID 7 Days #14 tablet Home Medications: Aspirin Enteric Coated [Aspirin EC] 81 mg PO DAILY #30 tablet.dr 03/03/17 [Rx] Spironolactone [Aldactone] 12.5 mg PO DAILY #30 tablet 03/03/17 [Rx] Ticagrelor [Brilinta] 90 mg PO BID #60 tablet 03/03/17 [Rx] Allopurinol [Zyloprim 100 MG] 100 mg PO DAILY 08/01/17 [History] Digoxin [Lanoxin] 0.125 mg PO DAILY 08/01/17 [History] Metoprolol XL (24 HR) Succ [Toprol Xl] 12.5 mg PO DAILY 08/01/17 [History] Omeprazole [PriLOSEC] 20 mg PO DAILY 08/01/17 [History] Sacubitril/Valsartan [Entresto 97 mg-103 mg Tablet] 1 each PO BID 08/01/17 [ History] Sulfamethoxazole/Trimeth DS [Bactrim DS] 1 each PO BID 7 Days #14 tablet [Rx] Allergies/Adverse Reactions: 3 Allergy/AdvReac Type Severity Reaction Status Date / Time Penicillins [PCN] AdvReac See Verified 03/26/17 11:00 Comments Date of admission: 08/04/17 17:26 Primary care physician: Salbador Madrid DO Consults: 08/08/17 09:57 Consult to Infectious Diseases [CONS] Routine Consulting Provider: Infectious Disease Katya Reason for Consult: Positive blood cx with new PPM Call Completed: Yes Discharging clinician: Zoya Perkins Anticipated date of discharge: 08/08/17 - Constitutional Vitals: Temp Pulse Resp BP Pulse Ox 97.9 F 80 17 130/81 96 08/08/17 15:04 08/08/17 15:04 08/08/17 15:04 08/08/17 15:04 08/08/17 15:04 General appearance: Present: A&O X 3 - Head Head exam: Present: atraumatic, normocephalic - Eye Eye exam: Present: PERRL, conjuntiva pink, sclera anicteric Pupils: Present: PERRL - Neck Neck exam general surgery: Present: supple, trachea midline. Absent: lymphadenopathy - Respiratory Respiratory exam: Present: CTAB. Absent: accessory muscle use, rales, rhonchi, wheezes - Cardiovascular Cardiovascular exam: Present: RRR, +S1, +S2. Absent: diastolic murmur, gallop, rubs, systolic murmur - GI/Abdominal GI/Abdominal exam: Present: normal bowel sounds, soft, no peritoneal signs. Absent: distended, tenderness - Extremities Exam Extremities exam: Present: warm, radial pulses palpable and symmetrical. Absent : calf tenderness, cyanotic, pedal edema - Neurological Exam Neurological exam: Present: CN II-XII intact, oriented X3, no focal deficits. Absent: pronater drift, facial droop, speech deficit - Skin Skin exam: Present: dry, intact - Patient Status Disposition: Home, Self-Care Condition: Good Functional capacity at discharge: independent ambulation Overall status at discharge: patient is back to baseline - Discharge Instructions Instructions: Sulfamethoxazole/Trimethoprim (By mouth), Cellulitis (DC) Follow Up With: Salbador Madrid DO [Primary Care Provider] - (Please call your primary care physician tomorrow for an appointment as soon as possible. Your discharge home on Bactrim which can cause an increase in your digoxin level. You should have your digoxin level checked by the end of the week.) - Diet and Activity Activity: increase activity as tolerated Diet: advance to your usual diet
[2017-08-08] MEDS ORDERED: Aminoglycoside Consult 1 EACH MC ONE (16:09)
== END 2017-08-08 16:10 | disposition home or self-care (01) | DRG 603 ==
LOC: 3BNU 12:56 → EMEROO 12:56 → 3BNU 15:48
PROVIDERS: ADMIT Hospitalist; ATTEND Hospitalist

== ENCOUNTER 2018-10-01 22:35 | Inpatient (IN) ==
[~2018-10-01 22:35] MED LIST: Ipratropium/Albuterol Neb 3 ML ONE; methylPREDNISolone 125 MG/2 ML VIAL ONE
[2018-10-01] MEDS ORDERED: Nitroglycerin Spray 4.9 GM BOTTLE ONE (22:37)
[2018-10-01] MEDS ORDERED: Furosemide 40 MG/4 ML VIAL ONE (22:37)
[2018-10-01] MEDS ORDERED: Nitroglycerin 0.4 MG TAB.SUBL SL ONE (22:39)
[2018-10-01] MEDS: Nitroglycerin 0.4 MG TAB.SUBL SL SCH ×2 (22:45→22:55)
[2018-10-01] MEDS ORDERED: Furosemide 40 MG/4 ML VIAL IVP ONE (22:50)
[2018-10-01] MEDS ORDERED: Isovue-370 500 ML BOTTLE IVP ONE (22:50)
[2018-10-01 22:57] LABS: ABG Base Excess -3 mEq/L (-2 to 3); ABG HCO3 23 mEq/L (21-27); ABG Oxygen Saturation 96 % (95-98); ABG PCO2 43 mmHg (35-45); ABG PH 7.34 pH Units (7.32-7.45); ABG PO2 84 mmHg (85-104); ABG TCO2 24 mEq/L (20-26); Blood Gas Modality BiLevel; Blood Gas PEEP 5 cm H2O
[2018-10-01] MEDS ORDERED: methylPREDNISolone 125 MG/2 ML VIAL IVP ONE (23:00)
[2018-10-01] MEDS ORDERED: Nitroglycerin 0.4 MG TAB.SUBL SL PRN (23:00)
[2018-10-01 23:03] LABS: Hemoglobin 15.8 g/dL (12.9-16.9); Mean Corpuscular HGB Conc 33.6 g/dL (31.6-35.5); Mean Corpuscular Hemoglobin 30.2 pg (28.0-33.3); Mean Corpuscular Volume 89.7 fL (83.0-100.0); Mean Platelet Volume 13.1 fL (9.4-12.4); Platelet Count 217 K/mcL (140-400); Red Blood Count 5.24 M/mcL (4.19-5.50); Red Cell Distribution Width 13.7 % (11.5-14.5); White Blood Count 26.9 K/mcL (4.3-11.1)
[2018-10-01] MEDS ORDERED: Ipratropium/Albuterol Neb 3 ML IH ONE (23:05)
[2018-10-01 23:13] LABS: Prothrombin Time 11.1 Seconds (9.4-12.1)
[2018-10-01 23:16] LABS: Activated Partial Thrombo Time 32.3 Seconds (26.0-36.0)
--- NOTE | 2018-10-01 23:16 | Emergency Department Note ---
Disposition Clinical Impression: Flash pulmonary edema Disposition: Admitted As Inpatient Condition: Good Referrals: Salbador Madrid DO [Primary Care Provider] - Forms: ED Satisfaction Letter Time of Disposition: 00:57 SOB HPI - General Chief Complaint: ED Shortness of Breath/Dyspnea Stated Complaint: LIANG Time Seen by Provider: 10/01/18 22:50 Source: patient Limitations: no limitations Nursing Notes Reviewed: Yes Vital Signs Reviewed: Yes - History of Present Illness 53 year old male presnts ot the ED with complaints of acute onset of difficulty in breathing and appears extremely dyspneic and was hypoxic to 88% in triage. Donato is dyspneic between sentences and diaphoretic at bedside. Donato is rhonchi that are present at bedside and appears to be in flash pumonary edema without any previous history of CHF. He does have a hsitory of cardiac stents and defibrillator with pacemaker. Donato was most recently taken off his brillenta therapy for his stents. Donato states has also been experiencing a productive cough without fevers at home. He is tachycardiac to 140 currently and is appear to be sinus tachcyardia. He is experincinc chest discomort [place]. - Related Data Home Medications Medication Instructions Recorded Confirmed Allopurinol [Zyloprim 100 MG] 100 mg PO DAILY 08/01/17 10/02/18 Metoprolol XL (24 HR) Succ [Toprol 12.5 mg PO DAILY 08/01/17 10/02/18 Xl] Sacubitril/Valsartan [Entresto 97 1 each PO BID 08/01/17 10/02/18 mg-103 mg Tablet] Previous Rx's Medication Instructions Recorded Aspirin Enteric Coated [Aspirin EC] 81 mg PO DAILY #30 tablet. 03/03/17 Spironolactone [Aldactone] 12.5 mg PO DAILY #30 tablet 03/03/17 Allergies Allergy/AdvReac Type Severity Reaction Status Date / Time Penicillins [PCN] AdvReac See Verified 10/01/18 22:41 Comments Constitutional: Reports: fever, chills, weakness. Denies: weight change Eyes: Denies: eye pain, eye discharge, vision change ENT ED: Denies: ear pain, throat pain, dental pain, hearing loss, epistaxis, congestion, dysphagia Cardiovascular: Reports: chest pain, dyspnea on exertion, edema. Denies: syncope, paroxysmal nocturnal dyspnea Respiratory: Reports: cough, dyspnea, wheezes. Denies: hemoptysis, stridor Gastrointestinal: Denies: abdominal pain, nausea, vomiting, diarrhea, constipation, hematemesis, melena, hematochezia Genitourinary: Denies: urgency, dysuria, frequency, hematuria Musculoskeletal: Denies: back pain, neck pain, arthralgia, myalgia Integumentary: Denies: rash, abrasion, lesions Neurological: Denies: headache, weakness, numbness, paresthesias, confusion, abnormal gait, vertigo Psychiatric: Denies: anxiety, depression, suicidal thoughts, homicidal thoughts, auditory hallucinations, visual hallucinations Endocrine: Denies: fatigue Hematological/Lymphatic: Denies: easy bleeding, easy bruising Allergic/Immunologic: Denies: facial swelling, urticaria Past Medical History - Past Medical History Medical history: Reports: cardiomyopathy, coronary artery disease, hypertension Surgical history: Reports: angioplasty/stent, AICD Psychiatric history: Reports: no psych history - Social History Smoking Status: Former smoker Smokeless Tobacco Status: No Alcohol use: Reports: none Drug use: Reports: none Physical Exam - General Limitations: no limitations General appearance: alert, in distress - Head Head exam: atraumatic, normocephalic, normal inspection - Eye Eye exam: Present: normal appearance, PERRL, EOMI - Expanded Eye Exam Pupils: Bilateral: reactive - ENT ENT exam: normal exam, normal oropharynx, mucous membranes moist - Expanded ENT Exam External ear exam: Present: normal external inspection Mouth exam: Present: normal external inspection Teeth exam: Present: normal inspection Throat exam: Present: normal inspection - Neck Neck exam: Present: normal inspection, full ROM, trachea midline - Chest Chest inspection: Present: normal inspection, symmetric chest wall rise - Respiratory Respiratory exam: Present: accessory muscle use (diaphoretic) - Expanded Respiratory Exam Location: rales: Left, Right, Upper, Lower, rhonchi: Left, Right, Upper, Lower - Cardiovascular Cardiovascular exam: Present: normal rhythm, tachycardia, normal heart sounds - Abdominal Exam Abdominal exam: Present: soft, Non-Tender. Absent: tenderness, distention, guarding, rebound, rigidity - Extremities Exam Extremities exam: Present: normal inspection, full ROM. Absent: tenderness, pedal edema - Expanded Upper Extremity Exam Shoulder exam: Present: normal inspection, full ROM Arm exam: Present: normal inspection, full ROM Elbow exam: Present: normal inspection, full ROM Forearm/Wrist exam: Present: normal inspection, full ROM Hand exam: Present: normal inspection, full ROM Vascular exam: Normal: capillary refill, radial pulse - Expanded Lower Extremity Exam Hip/Pelvis exam: Present: normal inspection, full ROM Upper leg exam: Present: normal inspection, full ROM Knee exam: Present: normal inspection, full ROM Lower leg exam: Present: normal inspection, full ROM Ankle exam: Present: normal inspection, full ROM Foot/toe exam: Present: normal inspection, full ROM Neurovascular/Tendon exam: Absent: motor deficit, sensory deficit, tendon deficit - Back Exam Back exam: Present: normal inspection, full ROM. Absent: tenderness - Neurological Exam Neurological exam: Present: alert, oriented X3 - Expanded Neurological Exam Patient oriented to: Present: person, place, time Coma Scale Eye Opening: Spontaneous Coma Scale Motor Response: Obeys Commands Coma Scale Verbal Response: Oriented Coma Scale Total: 15 - Psychiatric Psychiatric exam: Present: normal affect, normal mood - Skin Skin exam: Present: warm, dry, intact, normal color Course Course Narrative: WE have immeaditely placed him on bipapa, add lasix therapy with ntiro drip and re-evvaluate. If he start to tire out than we will electively intubate which he has agreed and woudl like compression and intubation is necessary. ABG is othewise normal and CXR appear to have failure. - Reevaluation(s) Reevaluation #1: I will sign out patient to Dr. Rivas for followup on CTA chest and then admision to the medicine service for flash pulmonary edema. CTA to rule out PE. He has markedly improved on bipap and will continue therapy for diureisis. Time: 00:57 Vital Signs Temperature 97.8 F 10/01/18 22:37 Pulse Rate 140 10/01/18 22:37 Respiratory Rate 36 10/01/18 22:37 Blood Pressure 174/134 10/01/18 22:37 O2 Sat by Pulse Oximetry 88 10/01/18 22:37 Temperature 97.8 F 10/01/18 22:37 Pulse Rate 97 10/02/18 00:21 Respiratory Rate 32 10/02/18 00:21 Blood Pressure 114/77 10/02/18 00:21 O2 Sat by Pulse Oximetry 99 10/02/18 00:21 Oxygen Delivery Oxygen Delivery Bipap Shortness of Breath/Dyspnea - Medical Records Medical records reviewed: Yes I reviewed the patient's medical records. - Lab Data Lab results reviewed: Yes I reviewed the patient's lab results. Result diagrams: 10/01/18 22:51 10/01/18 22:51 Lab Results 10/01/18 10/01/18 10/01/18 Range/Units 22:50 22:51 22:51 WBC 26.9 H (4.3-11.1) K/mcL RBC 5.24 (4.19-5.50) M/mcL Hgb 15.8 (12.9-16.9) g/dL Hct 47.0 (37.5-50.1) % MCV 89.7 (83.0-100.0) fL MCH 30.2 (28.0-33.3) pg MCHC 33.6 (31.6-35.5) g/dL RDW 13.7 (11.5-14.5) % Plt Count 217 (140-400) K/mcL MPV 13.1 H (9.4-12.4) fL Immature Gran % Test Not Performed Seg Neutrophils % 70.0 % Lymphocytes % 26.0 % Monocytes % 2.0 % Eosinophils % 2.0 % Basophils % Test Not Performed Neutrophils # 18.8 H (1.6-8.9) K/mcL Lymphocytes # 7.0 H (0.6-4.6) K/mcL Monocytes # 0.5 (0.0-1.3) K/mcL Eosinophils # 0.5 (0.0-0.6) K/mcL Basophils # Test Not Performed Platelet Estimate Normal (Normal) PT 11.1 (9.4-12.1) Seconds INR 1.0 APTT 32.3 (26.0-36.0) Seconds Sample Site ABG pH (7.32-7.45) pH Units ABG pCO2 (35-45) mmHg ABG pO2 (85-104) mmHg ABG HCO3 (21-27) mEq/L ABG Total CO2 (20-26) mEq/L ABG O2 Saturation (95-98) % ABG Base Excess (-2 to 3) mEq/L Juliocesar Test O2 Delivery Device Blood Gas Modality Inspired O2 (1-15=lpm [id number]=%) PEEP cm H2O Sodium (136-145) mEq/L Potassium (3.5-5.1) mEq/L Chloride (98-107) mEq/L Carbon Dioxide (23-29) mEq/L BUN (6-20) mg/dL Creatinine (0.70-1.30) mg/dL Est GFR ( Amer) (> 60) Est GFR (Non-Af Amer) (> 60) BUN/Creatinine Ratio (6-26) Glucose (70-105) mg/dL Calculated Osmolality (280-300) Lactic Acid (0.5-2.2) mmol/L Calcium (8.6-10.3) mg/dL Phosphorus (2.7-4.5) mg/dL Magnesium (1.6-2.6) mg/dL Total Bilirubin (0.3-1.0) mg/dL Direct Bilirubin (0.0-0.2) mg/dL Indirect Bilirubin (0.0-1.2) mg/dL AST (13-39) Units/L ALT (7-52) Units/L Alkaline Phosphatase (34-104) Units/L Troponin I (< 0.04) ng/mL B-Natriuretic Peptide 1759 H (Less than 100) pg/mL Serum Total Protein (6.4-8.9) g/dL Albumin (3.5-5.7) g/dL Globulin (2.4-3.5) g/dL Albumin/Globulin Ratio (1.1-2.2) Lipase (11-82) Units/L 10/01/18 10/01/18 10/02/18 Range/Units 22:51 22:54 00:17 WBC (4.3-11.1) K/mcL RBC (4.19-5.50) M/mcL Hgb (12.9-16.9) g/dL Hct (37.5-50.1) % MCV (83.0-100.0) fL MCH (28.0-33.3) pg MCHC (31.6-35.5) g/dL RDW (11.5-14.5) % Plt Count (140-400) K/mcL MPV (9.4-12.4) fL Immature Gran % Seg Neutrophils % % Lymphocytes % % Monocytes % % Eosinophils % % Basophils % Neutrophils # (1.6-8.9) K/mcL Lymphocytes # (0.6-4.6) K/mcL Monocytes # (0.0-1.3) K/mcL Eosinophils # (0.0-0.6) K/mcL Basophils # Platelet Estimate (Normal) PT (9.4-12.1) Seconds INR APTT (26.0-36.0) Seconds Sample Site R Radial ABG pH 7.34 (7.32-7.45) pH Units ABG pCO2 43 (35-45) mmHg ABG pO2 84 L (85-104) mmHg ABG HCO3 23 (21-27) mEq/L ABG Total CO2 24 (20-26) mEq/L ABG O2 Saturation 96 (95-98) % ABG Base Excess -3 L (-2 to 3) mEq/L Juliocesar Test N/A O2 Delivery Device BiPAP Blood Gas Modality BiLevel Inspired O2 60.0 (1-15=lpm [id number]=%) PEEP 5 cm H2O Sodium 138 (136-145) mEq/L Potassium 4.0 (3.5-5.1) mEq/L Chloride 102 (98-107) mEq/L Carbon Dioxide 22 L (23-29) mEq/L BUN 12 (6-20) mg/dL Creatinine 1.10 (0.70-1.30) mg/dL Est GFR ( Amer) > 60 (> 60) Est GFR (Non-Af Amer) > 60 (> 60) BUN/Creatinine Ratio 11 (6-26) Glucose 144 H (70-105) mg/dL Calculated Osmolality 288 (280-300) Lactic Acid 2.5 H (0.5-2.2) mmol/L Calcium 9.5 (8.6-10.3) mg/dL Phosphorus 3.4 (2.7-4.5) mg/dL Magnesium 1.7 (1.6-2.6) mg/dL Total Bilirubin 0.5 (0.3-1.0) mg/dL Direct Bilirubin 0.1 (0.0-0.2) mg/dL Indirect Bilirubin 0.4 (0.0-1.2) mg/dL AST 19 (13-39) Units/L ALT 18 (7-52) Units/L Alkaline Phosphatase 81 (34-104) Units/L Troponin I < 0.03 (< 0.04) ng/mL B-Natriuretic Peptide (Less than 100) pg/mL Serum Total Protein 7.6 (6.4-8.9) g/dL Albumin 4.6 (3.5-5.7) g/dL Globulin 3.0 (2.4-3.5) g/dL Albumin/Globulin Ratio 1.5 (1.1-2.2) Lipase 11 (11-82) Units/L - Radiology Data Radiology results reviewed: Yes I reviewed the patient's radiology results. - EKG Data EKG attestation: Yes I reviewed and interpreted this EKG. EKG results narrative: sinus tachycardia to 140, IVCD. NO STEMI. no rhythm change from 08/04/17. [id number]
[2018-10-01 23:27] LABS: Alanine Aminotransferase 18 Units/L (7-52); Albumin 4.6 g/dL (3.5-5.7); Albumin/Globulin Ratio 1.5 (1.1-2.2); Alkaline Phosphatase 81 Units/L (34-104); Aspartate Amino Transferase 19 Units/L (13-39); BUN/Creatinine Ratio 11 (6-26); Bilirubin,Direct 0.1 mg/dL (0.0-0.2); Bilirubin,Indirect 0.4 mg/dL (0.0-1.2); Bilirubin,Total 0.5 mg/dL (0.3-1.0); Blood Urea Nitrogen 12 mg/dL (6-20); Calcium 9.5 mg/dL (8.6-10.3); Carbon Dioxide 22 mEq/L (23-29); Chloride 102 mEq/L (98-107); Glucose 144 mg/dL (70-105); Lipase 11 Units/L (11-82); Magnesium 1.7 mg/dL (1.6-2.6); Osmolality,Calculated 288 (280-300); Phosphorous 3.4 mg/dL (2.7-4.5); Sodium 138 mEq/L (136-145); Total Protein 7.6 g/dL (6.4-8.9); Troponin I < 0.03 ng/mL (< 0.04); eGFR For African Americans > 60 (> 60); eGFR For Non-African Americans > 60 (> 60)
[2018-10-01 23:34] LABS: Eosinophils # 0.5 K/mcL (0.0-0.6); Monocytes # 0.5 K/mcL (0.0-1.3); Neutrophils # 18.8 K/mcL (1.6-8.9)
[2018-10-01 23:35] LABS: Platelet Estimate Normal (Normal)
[2018-10-02] MEDS ORDERED: Azithromycin 500 MG in D5% in Water 250 ML IVPB ONE (01:13)
[2018-10-02] MEDS ORDERED: cefTRIAXone 1,000 MG in Water for inj. (sterile) 10 ML IVP ONE ×2 (01:13→02:28)
--- NOTE | 2018-10-02 02:52 | Internal Med History&Physical ---
<Priti Vu M - Last Filed: 10/02/18 05:08> Date of Encounter: 10/02/18 Time of Encounter: 02:50 Internal Medicine - H&P: HPI Admitted From: Emergency Dept History of present illness: Mr. Bowen is a 53 year old male with history of CAD status post stenting, CHF now has AICD, chronic daily smoker, HTN who presented to the emergency Department secondary to shortness of breath for the past one day. The patient states he was feeling his normal self this morning but throughout the day progressively worsened and developed difficulty breathing. Patient denies any complaints of chest pain though he did admit this to the emergency department. The patient has had fever and increased cough with sputum production but denies any fever, chills, nausea, vomiting, abdominal pain, lower extremity edema. The patient has had no dysuria, hematuria. In the emergency department the patient was found to be hypoxic on arrival, tachycardic up to 140 and tachypneic. He was afebrile. The patient was placed on BiPAP with significant improvement in his work of breathing. He was also given 2 nebs, methylprednisolone as well as nitroglycerin. Given concern for pulmonary embolism the patient underwent CT angiogram which showed no evidence of bony embolism but does show bilateral pulmonary infiltrates. Lactate elevated at 2.5. The patient was initiated on 2 g IV Rocephin as well as 500 mg IV azithromycin. He is able to come off BiPAP and is now on 4 L nasal cannula. Laboratory evaluation shows significant leukocytosis of 26.9, no evidence of anemia. ABG shows no significant hypercapnia. BMP shows no electrolyte abnormalities or kidney dysfunction. Troponin less than 0.031. BNP elevated at 1759. EKG showed sinus tachycardia rate of 140 without ischemic changes. Past Med Surg Social Fam HX - Past Medical History Attestation: Yes The following information was validated with the patient. Source: patient Medical history: cardiomyopathy, CHF, coronary artery disease, hypertension Psychiatric history: no psych history - Past Surgical History Surgical History: angioplasty/stent, AICD Additional surgical history: amputation of tip of right ring finger, cardiac stents x 2 - Social History Smoking Status: Current every day smoker Smokeless Tobacco Status: Yes (0.3) Alcohol use: none Drug use: none - Family History Mother Family Member Ethnicity: Non- Living Status: Hx Family Cardiac Disorders: Yes Hx Family Neurologic Disorders: Yes (Alzheimer's disease) Father Family Member Ethnicity: Non- Living Status: Still Living Brother Family Member Ethnicity: Non- Living Status: Still Living Hx Family Cardiac Disorders: Yes (AL, Cardiac ablation x2, HTN, HLD) Hx Family Endocrine Disorder: Yes (DM) Sister Family Member Ethnicity: Non- Living Status: Still Living Internal Medicine - H&P: Meds Aspirin Enteric Coated [Aspirin EC] 81 mg PO DAILY #30 tablet. 03/03/17 [Rx] Spironolactone [Aldactone] 12.5 mg PO DAILY #30 tablet 03/03/17 [Rx] Allopurinol [Zyloprim 100 MG] 100 mg PO DAILY 08/01/17 [History] Metoprolol XL (24 HR) Succ [Toprol Xl] 12.5 mg PO DAILY 08/01/17 [History] Sacubitril/Valsartan [Entresto 97 mg-103 mg Tablet] 1 each PO BID 08/01/17 [History] Allergy/AdvReac Type Severity Reaction Status Date / Time Penicillins [PCN] AdvReac See Verified 10/01/18 22:41 Comments All Systems PM: A 10-system review of systems was performed and is negative for pertinent findings except as documented above in the HPI. - Constitutional Constitutional: no chills, no fever(s) - EENT Eyes: no change in vision, no floaters - Cardiovascular Cardiovascular ROS IM: dyspnea, dyspnea on exertion, no chest pain, no edema - Respiratory Respiratory: cough, dyspnea, no hemoptysis, no wheezing - Gastrointestinal Gastrointestinal: no abdominal pain, no constipation, no nausea, no vomiting - Genitourinary Genitourinary ROS male: no dysuria, no hematuria - Musculoskeletal Musculoskeletal ROS IM: no back pain, no neck pain - Integumentary Integumentary IM: no erythema, no rash - Neurological Neurological ROS: no abnormal gait, no dizziness - Psychiatric Psychiatric: no anxiety, no depression - Constitutional Vitals: Temp Pulse Resp BP Pulse Ox 97.8 F 82 23 106/76 96 10/01/18 22:37 10/02/18 02:15 10/02/18 02:15 10/02/18 02:15 10/02/18 02:15 Exam: General: Conversant. No apparent distress. Follow commands. Appears stated age. Neck: No JVD. Trachea midline. Neck supple. Eyes: PERRL. No scleral icterus. HENT: Normocephalic and atraumatic. Moist mucus membranes. Cardiovascular: Regular rate and rhythm. Normal S1 and S2. No murmurs appreciated. Normal capillary refill. Extremities well perfused with 2+ distal pulses bilaterally. No edema. Pulmonary: Decreased breath sounds bilaterally, anteriorly and posteriorly. No wheezes, rales, or rhonchi. Not in respiratory distress. Speaks in full sentences. on 4L NC Abdomen: Soft, nondistended, and tontender. No bruits or masses. No guarding. Neuro: Alert and oriented x3. No slurred speech. No focal deficits noted. Skin: No rashes noted on visualized skin. Musculoskeletal: No bony abnormalities visualized. Moves all extremities. Psych: Normal mood. Pleasant. Makes appropriate eye contact. Internal Med - H&P Results - Labs CBC & Chem 7: 10/02/18 04:01 10/01/18 22:51 Labs: Short CBC 10/01/18 Range/Units 22:51 WBC 26.9 H (4.3-11.1) K/mcL Hgb 15.8 (12.9-16.9) g/dL Hct 47.0 (37.5-50.1) % Plt Count 217 (140-400) K/mcL Neutrophils # 18.8 H (1.6-8.9) K/mcL BMP 10/01/18 22:51 Sodium 138 Potassium 4.0 Chloride 102 Carbon Dioxide 22 L BUN 12 Creatinine 1.10 Glucose 144 H Calcium 9.5 Cardiac Enzymes 10/01/18 Range/Units 22:51 Troponin I < 0.03 (< 0.04) ng/mL Liver Function 10/01/18 Range/Units 22:51 Total Bilirubin 0.5 (0.3-1.0) mg/dL Direct Bilirubin 0.1 (0.0-0.2) mg/dL AST 19 (13-39) Units/L ALT 18 (7-52) Units/L Alkaline Phosphatase 81 (34-104) Units/L Albumin 4.6 (3.5-5.7) g/dL - ABG Interpretation ABG results: 10/01/18 22:54 ABG pH 7.34 ABG pCO2 43 ABG pO2 84 L ABG HCO3 23 ABG Total CO2 24 ABG O2 Saturation 96 ABG Base Excess -3 L - Impressions ITS Impressions Chest X-Ray 10/01/18 22:51 IMPRESSION: Diffuse airspace opacification could represent pulmonary edema or pneumonia D/ / Kal Winkler MD / Kal Winkler MD Interpreting Provider: Kal Winkler MD Chest CTA 10/02/18 22:50 IMPRESSION: Negative for pulmonary embolus. Bilateral pulmonary infiltrates with mediastinal and bilateral hilar adenopathy likely reactive in nature. Recommend follow-up imaging to confirm resolution in 1-3 months unless clinically indicated sooner. D/ / Demario Berry MD / Demario Berry MD Interpreting Provider: Demario Berry MD - Assessment and Plan (1) Sepsis Current Visit: Yes Status: Acute Assessment and plan: * Likely source pulmonary * Given significantly decreased heart function well be cautious with fluid b oluses, 1 L provided and will reassess * lactate 2.5 without evidence of hypertension, will repeat * Patient initiated on Rocephin 2g and azithromycin 500mg IV in the emergency department, will continue Qualifiers: Sepsis type: sepsis due to unspecified organism Qualified Code(s): A41.9 - Sepsis, unspecified organism (2) Acute respiratory failure with hypoxia Current Visit: Yes Status: Acute Assessment and plan: * Concern for sepsis secondary to pneumonia, bilateral infiltrates seen on CTA * Patient meets sepsis criteria given tachycardia, leukocytosis up to 26.9, tachypnea, lactate 2.5 * At this point not meeting severe sepsis criteria given BP stable * Patient required BiPAP in ED, now on 4L NC and stable * Will continue with supplemental oxygen and BiPAP if needed, patient is agreeable to intubation if necessary * Patient not formally diagnosed with COPD but patient had improvement with nebulizers in the ED, will continue steroids and nebs * Patient has no evidence of PE on CTA (3) CHF (congestive heart failure) Current Visit: Yes Status: Acute Assessment and plan: * Previous Echo in 2018 shows EF of 25-30%, patient underwent stenting and now has AICD * BNP elevated to 1759 * Will recheck Echo * Trend troponins * Follows with Dr. Lau as an outpatient, brillinta stopped on 09/11/18 * Patient has no orthopnea * Patient given 40mg lasix in ED * Will give trial of 1L NS and reassess respiratory status Qualifiers: Heart failure type: systolic Heart failure chronicity: acute on chronic Qualified Code(s): I50.23 - Acute on chronic systolic (congestive) heart failure (4) HTN (hypertension) Current Visit: Yes Status: Chronic Assessment and plan: * Takes metoprolol at home * Will continue to monitor Qualifiers: Hypertension type: essential hypertension Qualified Code(s): I10 - Essential (primary) hypertension (5) CAD (coronary artery disease) Current Visit: Yes Status: Chronic Assessment and plan: * Denies any chest pain on my assessment but did admit this to the ED physician * Initial troponin < 0.03 * Will trend troponins * On brillinta Qualifiers: Coronary Disease-Associated Artery/Lesion type: [place] artery [place] vs. transplanted heart: [place] heart Associated angina: without angina Qualified Code(s): I25.10 - Atherosclerotic heart disease of [place] coronary artery without angina pectoris (6) Tobacco abuse Current Visit: Yes Status: Chronic Assessment and plan: * Patient continues to smoke, now smoking 1 pack per 3 days * Attempting continued cessation (7) DVT prophylaxis Current Visit: Yes Status: Acute Assessment and plan: * EPCDs - Time Spent With Patient Total time spent is greater than 50% in coordination of care (as documented) at patient's floor/unit and/or counseling patient: <Paulette Schwab - Last Filed: 10/02/18 06:04> Date of Encounter: 10/02/18 Internal Medicine - H&P: HPI History of present illness: Mr. Bowen is a 53 year old male All Systems PM: A 10-system review of systems was performed and is negative for pertinent findings except as documented above in the HPI. - Constitutional Vitals: Temp Pulse Resp BP Pulse Ox 100.0 F H 78 20 118/78 98 10/02/18 04:20 10/02/18 04:20 10/02/18 04:20 10/02/18 04:20 10/02/18 04:20 Internal Med - H&P Results - Labs CBC & Chem 7: 10/02/18 04:01 10/01/18 22:51 Labs: Short CBC 10/01/18 10/02/18 Range/Units 22:51 04:01 WBC 26.9 H 13.9 H (4.3-11.1) K/mcL Hgb 15.8 13.5 D (12.9-16.9) g/dL Hct 47.0 39.3 (37.5-50.1) % Plt Count 217 158 (140-400) K/mcL Neutrophils # 18.8 H 12.7 H (1.6-8.9) K/mcL BMP 10/01/18 22:51 Sodium 138 Potassium 4.0 Chloride 102 Carbon Dioxide 22 L BUN 12 Creatinine 1.10 Glucose 144 H Calcium 9.5 Cardiac Enzymes 10/01/18 10/02/18 Range/Units 22:51 04:01 Troponin I < 0.03 0.08 H* (< 0.04) ng/mL Liver Function 10/01/18 Range/Units 22:51 Total Bilirubin 0.5 (0.3-1.0) mg/dL Direct Bilirubin 0.1 (0.0-0.2) mg/dL AST 19 (13-39) Units/L ALT 18 (7-52) Units/L Alkaline Phosphatase 81 (34-104) Units/L Albumin 4.6 (3.5-5.7) g/dL - ABG Interpretation ABG results: 10/01/18 22:54 ABG pH 7.34 ABG pCO2 43 ABG pO2 84 L ABG HCO3 23 ABG Total CO2 24 ABG O2 Saturation 96 ABG Base Excess -3 L - Impressions ITS Impressions Chest X-Ray 10/01/18 22:51 IMPRESSION: Diffuse airspace opacification could represent pulmonary edema or pneumonia D/ / Kal Winkler MD / Kal Winkler MD Interpreting Provider: Kal Winkler MD Chest CTA 10/02/18 22:50 IMPRESSION: Negative for pulmonary embolus. Bilateral pulmonary infiltrates with mediastinal and bilateral hilar adenopathy likely reactive in nature. Recommend follow-up imaging to confirm resolution in 1-3 months unless clinically indicated sooner. D/ / Demario Berry MD / Demario Berry MD Interpreting Provider: Demario Berry MD - Time Spent With Patient Total time spent is greater than 50% in coordination of care (as documented) at patient's floor/unit and/or counseling patient: - Attending Attestation I performed a history and physical examination of the patient and discussed his management with the resident. I reviewed the residents note and agree with the documented findings and plan of care.
[2018-10-02] MEDS ORDERED: 0.9 % Sodium Chloride 1,000 ML IVC ONE (02:54)
[2018-10-02] MEDS ORDERED: Ondansetron 4 MG/2 ML VIAL IVP PRN (03:22)
[2018-10-02] MEDS ORDERED: Naloxone 0.4 MG/ML INJ IVP PRN (03:22)
[2018-10-02] MEDS ORDERED: Ipratropium/Albuterol Neb 3 ML IH PRN (03:54)
[2018-10-02 04:22] LABS: Basophils % 0.1 %; Eosinophils % 0.1 %; Hematocrit 39.3 % (37.5-50.1); Immature Granulocytes % 0.5 % (0-4); Lymphocytes # 0.8 K/mcL (0.6-4.6); Lymphocytes % 5.7 %; Mean Corpuscular HGB Conc 34.4 g/dL (31.6-35.5); Mean Corpuscular Hemoglobin 30.7 pg (28.0-33.3); Mean Corpuscular Volume 89.3 fL (83.0-100.0); Mean Platelet Volume 12.6 fL (9.4-12.4); Monocytes # 0.4 K/mcL (0.0-1.3); Monocytes % 2.5 %; Neutrophils # 12.7 K/mcL (1.6-8.9); Platelet Count 158 K/mcL (140-400); Red Cell Distribution Width 13.6 % (11.5-14.5); Segmented Neutrophils % 91.1 %; White Blood Count 13.9 K/mcL (4.3-11.1)
[2018-10-02 04:23] LABS: Hemoglobin 13.5 g/dL (12.9-16.9)
[2018-10-02 06:41] LABS: BUN/Creatinine Ratio 13 (6-26); Blood Urea Nitrogen 15 mg/dL (6-20); Calcium 8.9 mg/dL (8.6-10.3); Carbon Dioxide 27 mEq/L (23-29); Chloride 96 mEq/L (98-107); Glucose 259 mg/dL (70-105); Osmolality,Calculated 298 (280-300); Potassium 4.2 mEq/L (3.5-5.1); Sodium 139 mEq/L (136-145); eGFR For African Americans > 60 (> 60); eGFR For Non-African Americans > 60 (> 60)
[2018-10-02] MEDS: Aspirin Enteric Coated 81 MG Tablet PO SCH (07:46)
[2018-10-02] MEDS: cefTRIAXone 2,000 MG in Water for inj. (sterile) 20 ML IVP SCH (07:46)
[2018-10-02] MEDS: Metoprolol XL (24 HR) Succ 25 MG TAB.ER.24H PO SCH (07:46)
[2018-10-02] MEDS: predniSONE 20 MG TABLET PO SCH (07:46)
[2018-10-02] MEDS ORDERED: Azithromycin 500 MG in D5% in Water 250 ML IVPB SCH (09:00)
--- NOTE | 2018-10-02 11:10 | Event Note ---
Date of Encounter: 10/02/18 Time of Encounter: 09:00 H&P reviewed. Patient with history of CAD status post PCI, ischemic cardiomyopathy status post ICD, hypertension, is admitted overnight due to sepsis and acute hypoxic respiratory failure secondary to bilateral pneumonia. Started on Rocephin and azithromycin with clinical improvement. Lactic acid also downtrending. Will continue IV antibiotics, and wean O2 as tolerated. He does have minimal troponin elevation of 0.030.080.10 without anginal symptoms or concerning EKG changes. Continue to trend troponin and check echocardiogram.
[2018-10-02] MEDS: Ipratropium/Albuterol Neb 3 ML IH SCH ×4 (11:13→19:51)
[2018-10-02 12:33] LABS: Bilirubin,Urine Negative (Negative); Clarity,Urine Clear (Clear); Color,Urine Yellow (Yellow); Glucose,Urine (UA) 100 mg/dL (Normal); Ketones,Urine Negative (Negative); Protein,Urine Negative (Neg-Trace); Specific Gravity,Urine 1.015 (1.010-1.025); Urobilinogen,Urine Normal (Normal)
[2018-10-02 12:34] LABS: Blood,Urine Negative (Negative); Leukocyte Esterase,Urine Negative (Negative); Nitrite,Urine Negative (Negative)
--- NOTE | 2018-10-02 13:46 | Electrocardiograph Report ---
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
[2018-10-02] MEDS ORDERED: Perflutren Lipid Microsphere 1.3 ML in 0.9 % Sodium Chloride 8.7 ML IVP ONE (16:16)
[2018-10-03] MEDS: Ipratropium/Albuterol Neb 3 ML IH SCH ×4 (00:44→11:21)
[2018-10-03 04:50] LABS: Basophils % 0.1 %; Hematocrit 36.8 % (37.5-50.1); Hemoglobin 12.3 g/dL (12.9-16.9); Immature Granulocytes % 0.5 % (0-4); Lymphocytes % 18.2 %; Mean Corpuscular HGB Conc 33.4 g/dL (31.6-35.5); Mean Corpuscular Hemoglobin 30.3 pg (28.0-33.3); Mean Corpuscular Volume 90.6 fL (83.0-100.0); Mean Platelet Volume 12.9 fL (9.4-12.4); Monocytes # 0.9 K/mcL (0.0-1.3); Monocytes % 8.3 %; Neutrophils # 8.1 K/mcL (1.6-8.9); Platelet Count 138 K/mcL (140-400); Red Blood Count 4.06 M/mcL (4.19-5.50); Red Cell Distribution Width 13.9 % (11.5-14.5); Segmented Neutrophils % 72.9 %; White Blood Count 11.1 K/mcL (4.3-11.1)
[2018-10-03 05:08] LABS: BUN/Creatinine Ratio 21 (6-26); Blood Urea Nitrogen 21 mg/dL (6-20); Calcium 9.5 mg/dL (8.6-10.3); Carbon Dioxide 27 mEq/L (23-29); Chloride 103 mEq/L (98-107); Glucose 166 mg/dL (70-105); Osmolality,Calculated 293 (280-300); Potassium 3.9 mEq/L (3.5-5.1); Sodium 138 mEq/L (136-145); eGFR For African Americans > 60 (> 60); eGFR For Non-African Americans > 60 (> 60)
[2018-10-03] MEDS: Metoprolol XL (24 HR) Succ 25 MG TAB.ER.24H PO SCH (08:59)
[2018-10-03] MEDS: predniSONE 20 MG TABLET PO SCH (08:59)
[2018-10-03] MEDS: Aspirin Enteric Coated 81 MG Tablet PO SCH (08:59)
[2018-10-03] MEDS: cefTRIAXone 2,000 MG in Water for inj. (sterile) 20 ML IVP SCH (09:00)
[2018-10-03] MEDS ORDERED: Azithromycin 250 MG TABLET PO SCH (09:00)
[2018-10-03] MEDS ORDERED: Spironolactone 25 MG TABLET PO SCH (09:00)
--- NOTE | 2018-10-03 10:43 | Discharge Summary ---
- NOTES TO OUTPATIENT PROVIDER Notes to Outpatient Provider: Came with SOB, has PNA. Please follow up o echo findgings and he needs to his mechanical striper again. Follow up CT in 3 months to confirm the resilution of mediastinal adenpathy Orders not resulted at time of discharge: Pending orders 10/01/18 22:51 Culture,Blood [BC] Stat 10/04/18 04:00 Basic Metabolic Panel AM 0400 Complete Blood Count [HEME] AM 0400 10/05/18 04:00 Basic Metabolic Panel AM 0400 Complete Blood Count [HEME] AM 0400 10/06/18 04:00 Basic Metabolic Panel AM 0400 Complete Blood Count [HEME] AM 0400 Date of Encounter: 10/03/18 Time of Encounter: 08:45 - Discharge Diagnosis (1) Acute respiratory failure with hypoxia Priority: Secondary Status: Acute (2) Elevated troponin Priority: Secondary Status: Acute (3) Bilateral pneumonia Priority: Primary Status: Acute Qualifiers: Pneumonia type: due to unspecified organism Lung location: lower lobe of lung Qualified Code(s): J18.1 - Lobar pneumonia, unspecified organism (4) Systolic heart failure Priority: Secondary Status: Chronic Qualifiers: Heart failure chronicity: chronic Qualified Code(s): I50.22 - Chronic systolic (congestive) heart failure Hospital course: Mr. Bowen is a 53 year old male with a past medical history significant for CAD status post stenting, CHF with AICD, chronic smoker, hypertension, presented to the emergency department with the shortness of breath. Patient was hypoxic and tachypneic on arrival. Chest x-ray was concerning for pneumonia. CT was done to rule out pulmonary embolus, there was no pulmonary embolus but the patient was diagnosed with bilateral pneumonia. Patient was started on the IV antibiotics, ceftriaxone and azithromycin, patient got better with IV antibiotics. Today, patient is feeling fine. Denies any chest pain, shortness of breath. Patient feels that he is back to his baseline. Patient will be discharged on oral levofloxacin. He also had mild troponin elevation at the time of arrival, troponins peaked at 0.1. Echocardiography was repeated. Echo showed reduced ejection fraction 35-40%, with severe global and segmental left ventricular dysfunction, mild to moderate mitral regurgitation. Patient previous echo from the last year 06/2017 was also reviewed which showed an ejection fraction of 25%, and severe global and segmental left ventricular systolic dysfunction. As the patient adequately unchanged from the previous one, no further interventions were done for cardiology issue. Patient was advised to follow-up with his mechanical striper as an outpatient. Patient is being discharged in stable condition. Medications have been sent to the patient's pharmacy. - Time Spent with Patient Total time spent providing and/or coordinating discharge services: - Discharge Medications Prescriptions: New Levofloxacin [Levaquin] 750 mg PO DAILY 5 Days #5 tablet Continued Aspirin Enteric Coated [Aspirin EC] 81 mg PO DAILY #30 tablet. Spironolactone [Aldactone] 12.5 mg PO DAILY #30 tablet Allopurinol [Zyloprim 100 MG] 100 mg PO DAILY Metoprolol XL (24 HR) Succ [Toprol Xl] 12.5 mg PO DAILY Sacubitril/Valsartan [Entresto 97 mg-103 mg Tablet] 1 each PO BID Home Medications: Aspirin Enteric Coated [Aspirin EC] 81 mg PO DAILY #30 tablet. 03/03/17 [Rx] Spironolactone [Aldactone] 12.5 mg PO DAILY #30 tablet 03/03/17 [Rx] Allopurinol [Zyloprim 100 MG] 100 mg PO DAILY 08/01/17 [History] Metoprolol XL (24 HR) Succ [Toprol Xl] 12.5 mg PO DAILY 08/01/17 [History] Sacubitril/Valsartan [Entresto 97 mg-103 mg Tablet] 1 each PO BID 08/01/17 [History] Levofloxacin [Levaquin] 750 mg PO DAILY 5 Days #5 tablet 10/03/18 [Rx] Allergies/Adverse Reactions: Allergy/AdvReac Type Severity Reaction Status Date / Time Penicillins [PCN] AdvReac See Verified 10/01/18 22:41 Comments Date of admission: 10/02/18 02:41 Primary care physician: Salbador Madrid DO Consults: 10/02/18 07:32 Consult to Nurse Navigator [CONS] Routine Comment: CHF - Constitutional Vitals: Temp Pulse Resp BP Pulse Ox 97.7 F 83 18 111/65 99 10/03/18 06:55 10/03/18 06:55 10/03/18 07:50 10/03/18 06:55 10/03/18 07:50 Exam: General: Alert and oriented, no physical distress, able to follow commands. HEENT: No thyromegaly, no lymphadenopathy, no discharge. Eyes: No discharge. Respiratory: Normal vesicular breathing, no added sounds, breathing equal in both sides. CVS: Normal heart sounds, no murmurs, no edema. Extremities: No peripheral edema, peripheral pulses intact. Lymph nodes: No lymphadenopathy Gastrointestinal: Soft, nontender abdomen, normal abdominal sounds. No distention noted. Genitourinary: No paravertebral tenderness. Neurological: Alert and oriented. No focal deficits. Cranial nerves II-XII intact. - Patient Status Disposition: Home Health Service Condition: Good Functional capacity at discharge: independent ambulation Overall status at discharge: patient is progressing back to baseline - Discharge Instructions Follow Up With: Li Rivera [employer] [facility] [Advanced Practice Nurse] - 10/10/18 3:30 pm - Diet and Activity Activity: increase activity as tolerated Diet: advance to your usual diet
[2018-10-03 11:03] VITALS: BP 109/63
--- NOTE | 2018-10-03 17:39 | Electrocardiograph Report ---
[place] Test Date: 2018-10-01 Pat Name: Alexander Bowen Department: [id number] Room: 2A62 Gender: M Intensive Care Specialist: : 1965 Requested By: Jm Avila Order Number: [id number] Reading MD: Louis Reveles Measurements Intervals [place] Rate: 140 P: -70 [place]: 99 QRS: 83 QRSD: 138 T: 261 QT: 332 QTc: 507 Interpretive Statements Sinus or ectopic atrial tachycardia Nonspecific intraventricular conduction delay Anterior infarct, acute (LAD) Electronically Signed On 10-03-2018 17:37:34 EDT by Louis Reveles
[2018-10-03] MEDS ORDERED: Sacubitril/Valsartan 97/103 MG 1 TAB TABLET PO SCH (21:00)
== END 2018-10-03 11:37 | disposition home health service (06) | DRG 871 ==
LOC: EMEROOARM 22:35 → 2NNU 10-02 02:41 → SUATTDRO 10-02 02:41 → 2NNU 10-02 04:10 → 2ANU 10-02 16:07
PROVIDERS: ADMIT Internal Medicine; ATTEND Internal Medicine

== ENCOUNTER 2019-09-17 11:20 | Inpatient (IN) ==
[2019-09-17 12:19] LABS: Basophils # 0.1 K/mcL (0.0-0.2); Basophils % 0.7 %; Eosinophils # 0.1 K/mcL (0.0-0.6); Eosinophils % 0.8 %; Hematocrit 40.4 % (37.5-50.1); Hemoglobin 12.9 g/dL (12.9-16.9); Immature Granulocytes % 0.2 % (0-4); Lymphocytes # 2.3 K/mcL (0.6-4.6); Lymphocytes % 23.6 %; Mean Corpuscular HGB Conc 31.9 g/dL (31.6-35.5); Mean Corpuscular Hemoglobin 27.3 pg (28.0-33.3); Mean Corpuscular Volume 85.4 fL (83.0-100.0); Mean Platelet Volume 11.5 fL (9.4-12.4); Monocytes # 0.9 K/mcL (0.0-1.3); Neutrophils # 6.3 K/mcL (1.6-8.9); Platelet Count 209 K/mcL (140-400); Red Blood Count 4.73 M/mcL (4.19-5.50); Red Cell Distribution Width 17.2 % (11.5-14.5); Segmented Neutrophils % 65.7 %; White Blood Count 9.6 K/mcL (4.3-11.1)
[2019-09-17 12:22] LABS: INR 1.2; Prothrombin Time 13.8 Seconds (9.4-12.1)
[2019-09-17 12:25] LABS: Activated Partial Thrombo Time 30.9 Seconds (26.0-36.0)
[2019-09-17 12:36] LABS: Bilirubin,Urine Negative (Negative); Blood,Urine Negative (Negative); Clarity,Urine Clear (Clear); Color,Urine Light-Yellow (Yellow); Glucose,Urine (UA) 500 mg/dL (Normal); Ketones,Urine Negative (Negative); Leukocyte Esterase,Urine Negative (Negative); Nitrite,Urine Negative (Negative); Protein,Urine Negative (Neg-Trace); Specific Gravity,Urine 1.008 (1.010-1.025)
[2019-09-17 12:41] LABS: BUN/Creatinine Ratio 19 (6-26); Blood Urea Nitrogen 22 mg/dL (6-20); Calcium 8.7 mg/dL (8.6-10.3); Carbon Dioxide 25 mEq/L (23-29); Chloride 102 mEq/L (98-107); Glucose 116 mg/dL (70-105); Osmolality,Calculated 288 (280-300); Potassium 3.3 mEq/L (3.5-5.1); Sodium 137 mEq/L (136-145); Troponin I 0.03 ng/mL (< 0.04); eGFR For African Americans > 60 (> 60); eGFR For Non-African Americans > 60 (> 60)
[2019-09-17] MEDS ORDERED: Furosemide 20 MG/2 ML VIAL IVP ONE (13:04)
[2019-09-17] MEDS ORDERED: Ondansetron 4 MG/2 ML VIAL IVP PRN (13:37)
[2019-09-17] MEDS ORDERED: Naloxone 0.4 MG/ML INJ IVP PRN (13:37)
[2019-09-17] MEDS ORDERED: D5% in Water 1,000 ML IVC PRN (13:59)
[2019-09-17] MEDS ORDERED: *HR* Dextrose 50 % in Water (Vial) 50 ML VIAL IVP PRN (13:59)
[2019-09-17] MEDS ORDERED: Dextrose Gel 15 GM/37.5 ML TUBE PO PRN ×2 (13:59)
[2019-09-17 14:03] LABS: Magnesium 1.5 mg/dL (1.6-2.6); Phosphorous 3.2 mg/dL (2.7-4.5)
[2019-09-17 14:14] LABS: Thyroid Stimulating Hormone 1.223 mcIU/mL (0.340-5.600)
[2019-09-17] MEDS ORDERED: Perflutren Lipid Microsphere 1.3 ML in 0.9 % Sodium Chloride 8.7 ML IVP ONE ×2 (14:19→17:59)
[2019-09-17] MEDS: Furosemide 40 MG/4 ML VIAL IVP SCH ×2 (14:31→20:30)
[2019-09-17] MEDS: *HR* Heparin 5,000 UNIT/ML VIAL SQ SCH ×2 (15:35→20:30)
[2019-09-17] MEDS: Insulin LISPRO 300 UNITS/3 ML VIAL SQ SCH ×2 (16:57→20:18)
[2019-09-17] MEDS ORDERED: Nitroglycerin 0.4 MG TAB.SUBL SL PRN (17:20)
[2019-09-17] MEDS ORDERED: Benzonatate 100 MG CAPSULE PO PRN (19:40)
[2019-09-17] MEDS: Metoprolol XL (24 HR) Succ 25 MG TAB.ER.24H PO SCH (20:30)
[2019-09-17] MEDS: Sacubitril/Valsartan 97/103 MG 1 TAB TABLET PO SCH (20:30)
[2019-09-17] MEDS ORDERED: *HR* OxyCODONE Immed Rel 5 MG TABLET PO PRN (23:12)
[2019-09-18 03:20] LABS: Basophils # 0.1 K/mcL (0.0-0.2); Basophils % 0.6 %; Eosinophils # 0.1 K/mcL (0.0-0.6); Eosinophils % 1.4 %; Hematocrit 37.8 % (37.5-50.1); Hemoglobin 12.5 g/dL (12.9-16.9); Immature Granulocytes % 0.1 % (0-4); Mean Corpuscular HGB Conc 33.1 g/dL (31.6-35.5); Mean Corpuscular Hemoglobin 28.3 pg (28.0-33.3); Mean Corpuscular Volume 85.7 fL (83.0-100.0); Mean Platelet Volume 11.1 fL (9.4-12.4); Monocytes # 0.8 K/mcL (0.0-1.3); Monocytes % 9.6 %; Neutrophils # 5.4 K/mcL (1.6-8.9); Platelet Count 183 K/mcL (140-400); Red Blood Count 4.41 M/mcL (4.19-5.50); Red Cell Distribution Width 16.9 % (11.5-14.5); Segmented Neutrophils % 64.3 %; White Blood Count 8.4 K/mcL (4.3-11.1)
[2019-09-18 03:45] LABS: Chol/HDL Ratio 3.2 (0-4.9)
[2019-09-18 03:46] LABS: BUN/Creatinine Ratio 21 (6-26); Blood Urea Nitrogen 23 mg/dL (6-20); Carbon Dioxide 23 mEq/L (23-29); Chloride 102 mEq/L (98-107); Glucose 123 mg/dL (70-105); Magnesium 2.1 mg/dL (1.6-2.6); Osmolality,Calculated 287 (280-300); Phosphorous 3.3 mg/dL (2.7-4.5); Potassium 3.6 mEq/L (3.5-5.1); Sodium 136 mEq/L (136-145); eGFR For African Americans > 60 (> 60); eGFR For Non-African Americans > 60 (> 60)
[2019-09-18] MEDS: *HR* Heparin 5,000 UNIT/ML VIAL SQ SCH ×3 (05:35→21:07)
[2019-09-18] MEDS: Insulin LISPRO 300 UNITS/3 ML VIAL SQ SCH ×4 (07:29→21:07)
[2019-09-18] MEDS: Aspirin Enteric Coated 81 MG Tablet PO SCH (07:42)
[2019-09-18] MEDS: Furosemide 40 MG/4 ML VIAL IVP SCH ×2 (07:43→21:07)
[2019-09-18] MEDS: allopurinoL 300 MG TABLET PO SCH (07:43)
[2019-09-18] MEDS: Metoprolol XL (24 HR) Succ 25 MG TAB.ER.24H PO SCH ×2 (07:43→21:06)
[2019-09-18] MEDS: Spironolactone 25 MG TABLET PO SCH (07:43)
[2019-09-18] MEDS: Sacubitril/Valsartan 97/103 MG 1 TAB TABLET PO SCH ×2 (07:43→21:06)
[2019-09-18] MEDS ORDERED: *HR* Heparin 10,000 UNIT/10 ML VIAL ONE (12:38)
[2019-09-18] MEDS ORDERED: ISOVUE-370 200 ML INFUS..BTL ONE (12:38)
[2019-09-18] MEDS ORDERED: Heparin 1,000 UNITS/500 mL 500 ML ONE (12:38)
[2019-09-18] MEDS ORDERED: Nitroglycerin 1,000 MCG/10 ML VIAL IV ONE (12:38)
[2019-09-18] MEDS ORDERED: 0.9 % Sodium Chloride 2,000 ML ONE (12:38)
[2019-09-18] MEDS ORDERED: *HR* FentaNYL (PF) 100 MCG/2 ML VIAL ONE (12:44)
[2019-09-18] MEDS ORDERED: *HR* Midazolam HCl 2 MG/2 ML VIAL ONE (12:44)
[2019-09-19 05:46] LABS: BUN/Creatinine Ratio 24 (6-26); Blood Urea Nitrogen 29 mg/dL (6-20); Calcium 9.4 mg/dL (8.6-10.3); Carbon Dioxide 23 mEq/L (23-29); Chloride 101 mEq/L (98-107); Glucose 124 mg/dL (70-105); Magnesium 1.9 mg/dL (1.6-2.6); Osmolality,Calculated 287 (280-300); Potassium 4.2 mEq/L (3.5-5.1); Sodium 135 mEq/L (136-145); eGFR For African Americans > 60 (> 60); eGFR For Non-African Americans > 60 (> 60)
[2019-09-19] MEDS ORDERED: Regadenoson 0.4 MG/5 ML SYRINGE IVP ONE (06:16)
[2019-09-19] MEDS: *HR* Heparin 5,000 UNIT/ML VIAL SQ SCH ×3 (06:41→21:53)
[2019-09-19] MEDS: Insulin LISPRO 300 UNITS/3 ML VIAL SQ SCH ×4 (09:26→20:49)
[2019-09-19] MEDS: allopurinoL 300 MG TABLET PO SCH (09:27)
[2019-09-19] MEDS: Aspirin Enteric Coated 81 MG Tablet PO SCH (09:27)
[2019-09-19] MEDS: Spironolactone 25 MG TABLET PO SCH (09:27)
[2019-09-19] MEDS: Sacubitril/Valsartan 97/103 MG 1 TAB TABLET PO SCH ×2 (09:28→21:53)
[2019-09-19] MEDS: Furosemide 40 MG/4 ML VIAL IVP SCH ×2 (09:28→21:53)
[2019-09-19] MEDS: Metoprolol XL (24 HR) Succ 25 MG TAB.ER.24H PO SCH ×2 (09:28→21:53)
[2019-09-19] MEDS ORDERED: Magnesium Oxide 400 MG TABLET PO ONE (12:36)
[2019-09-20] MEDS: *HR* Heparin 5,000 UNIT/ML VIAL SQ SCH ×4 (02:31→21:48)
[2019-09-20 05:52] LABS: BUN/Creatinine Ratio 25 (6-26); Blood Urea Nitrogen 32 mg/dL (6-20); Calcium 9.2 mg/dL (8.6-10.3); Carbon Dioxide 22 mEq/L (23-29); Chloride 97 mEq/L (98-107); Glucose 94 mg/dL (70-105); Magnesium 1.8 mg/dL (1.6-2.6); Osmolality,Calculated 285 (280-300); Phosphorous 3.3 mg/dL (2.7-4.5); Potassium 3.8 mEq/L (3.5-5.1); Sodium 134 mEq/L (136-145); eGFR For African Americans > 60 (> 60); eGFR For Non-African Americans 58 (> 60)
[2019-09-20] MEDS: Insulin LISPRO 300 UNITS/3 ML VIAL SQ SCH ×4 (07:05→20:48)
[2019-09-20] MEDS: Sacubitril/Valsartan 97/103 MG 1 TAB TABLET PO SCH ×2 (09:01→20:54)
[2019-09-20] MEDS: Spironolactone 25 MG TABLET PO SCH (09:01)
[2019-09-20] MEDS: allopurinoL 300 MG TABLET PO SCH (09:01)
[2019-09-20] MEDS: Metoprolol XL (24 HR) Succ 25 MG TAB.ER.24H PO SCH ×2 (09:01→20:54)
[2019-09-20] MEDS: Aspirin Enteric Coated 81 MG Tablet PO SCH (09:01)
[2019-09-20] MEDS: Furosemide 40 MG/4 ML VIAL IVP SCH ×3 (09:01→20:54)
[2019-09-20] MEDS ORDERED: metOLazone 5 MG TABLET PO ONE (14:00)
[2019-09-21 08:11] LABS: BUN/Creatinine Ratio 27 (6-26); Blood Urea Nitrogen 39 mg/dL (6-20); Calcium 9.5 mg/dL (8.6-10.3); Carbon Dioxide 22 mEq/L (23-29); Chloride 94 mEq/L (98-107); Glucose 99 mg/dL (70-105); Magnesium 1.8 mg/dL (1.6-2.6); Osmolality,Calculated 283 (280-300); Potassium 3.6 mEq/L (3.5-5.1); Sodium 132 mEq/L (136-145); eGFR For African Americans > 60 (> 60); eGFR For Non-African Americans 51 (> 60)
[2019-09-21] MEDS: Insulin LISPRO 300 UNITS/3 ML VIAL SQ SCH ×4 (08:42→20:30)
[2019-09-21] MEDS: Aspirin Enteric Coated 81 MG Tablet PO SCH (08:56)
[2019-09-21] MEDS: allopurinoL 300 MG TABLET PO SCH (08:56)
[2019-09-21] MEDS: Magnesium Oxide 400 MG TABLET PO SCH ×2 (11:48→20:22)
[2019-09-21] MEDS: Metoprolol XL (24 HR) Succ 25 MG TAB.ER.24H PO SCH ×2 (11:49→20:22)
[2019-09-21] MEDS: Sacubitril/Valsartan 97/103 MG 1 TAB TABLET PO SCH ×2 (11:49→20:22)
[2019-09-21] MEDS: Spironolactone 25 MG TABLET PO SCH (11:49)
[2019-09-21] MEDS: *HR* Heparin 5,000 UNIT/ML VIAL SQ SCH ×2 (11:49→20:30)
[2019-09-21] MEDS: Furosemide 40 MG/4 ML VIAL IVP SCH (12:54)
[2019-09-21] MEDS: Furosemide 40 MG TABLET PO SCH (17:16)
[2019-09-22] MEDS: *HR* Heparin 5,000 UNIT/ML VIAL SQ SCH (02:24)
[2019-09-22 06:53] LABS: BUN/Creatinine Ratio 27 (6-26); Blood Urea Nitrogen 35 mg/dL (6-20); Calcium 9.2 mg/dL (8.6-10.3); Carbon Dioxide 25 mEq/L (23-29); Chloride 94 mEq/L (98-107); Glucose 107 mg/dL (70-105); Magnesium 1.8 mg/dL (1.6-2.6); Osmolality,Calculated 280 (280-300); Potassium 3.6 mEq/L (3.5-5.1); Sodium 131 mEq/L (136-145); eGFR For African Americans > 60 (> 60); eGFR For Non-African Americans 58 (> 60)
[2019-09-22] MEDS: Metoprolol XL (24 HR) Succ 25 MG TAB.ER.24H PO SCH (08:19)
[2019-09-22] MEDS: allopurinoL 300 MG TABLET PO SCH (08:19)
[2019-09-22 08:20] VITALS: BP 111/72
[2019-09-22] MEDS: Magnesium Oxide 400 MG TABLET PO SCH (08:20)
[2019-09-22] MEDS: Spironolactone 25 MG TABLET PO SCH (08:20)
[2019-09-22] MEDS: Aspirin Enteric Coated 81 MG Tablet PO SCH (08:20)
[2019-09-22] MEDS: Furosemide 40 MG TABLET PO SCH (08:20)
[2019-09-22] MEDS: Sacubitril/Valsartan 97/103 MG 1 TAB TABLET PO SCH (08:20)
[2019-09-22] MEDS: Insulin LISPRO 300 UNITS/3 ML VIAL SQ SCH (08:20)
== END 2019-09-22 11:55 | disposition home or self-care (01) | DRG 286 ==
LOC: 3BNU 11:20 → EMEROOARM 11:20 → SUATTDRO 14:07 → 3BNU 14:42 → SUATTDRO 09-19 14:49
PROVIDERS: ADMIT Internal Medicine; ATTEND Family Medicine